=== PATIENT | male | born 1980 | race Two or more races ===

== ENCOUNTER 2020-08-07 07:36 | Outpatient (REF) | payer OTHER, SELFPAY ==
--- NOTE | ~2020-08-07 | XR_ITS ---
EXAMINATION: LEFT KNEE AND RIGHT FOOT X-RAYS CLINICAL INFORMATION: Pain COMPARISON: None TECHNIQUE: 3 views of the left knee and 3 views of the left foot FINDINGS: Left knee: Bone alignment is normal. No fracture or dislocation is seen. Joint spaces are normal. Soft tissues are normal. Right foot: Bone alignment is normal. No acute fracture or dislocation is seen. There is evidence of old trauma to the ankle with soft tissue ossifications inferior to the lateral malleolus. There is arthritis in the midfoot with joint space narrowing and osteophyte formation. There is a calcaneal spur at the Achilles tendon insertion. XR/XR foot RT 2V IMPRESSION: Left knee: Unremarkable exam Right foot: Evidence of old trauma to the lateral malleolus. Arthritis in the midfoot. Osteophyte at the Achilles tendon insertion to the patella.
--- NOTE | ~2020-08-07 | XR_ITS ---
EXAMINATION: LEFT KNEE AND RIGHT FOOT X-RAYS CLINICAL INFORMATION: Pain COMPARISON: None TECHNIQUE: 3 views of the left knee and 3 views of the left foot FINDINGS: Left knee: Bone alignment is normal. No fracture or dislocation is seen. Joint spaces are normal. Soft tissues are normal. Right foot: Bone alignment is normal. No acute fracture or dislocation is seen. There is evidence of old trauma to the ankle with soft tissue ossifications inferior to the lateral malleolus. There is arthritis in the midfoot with joint space narrowing and osteophyte formation. There is a calcaneal spur at the Achilles tendon insertion. XR/XR knee LT 3V IMPRESSION: Left knee: Unremarkable exam Right foot: Evidence of old trauma to the lateral malleolus. Arthritis in the midfoot. Osteophyte at the Achilles tendon insertion to the patella.
[2020-08-07 08:25] LABS: MANUAL DIFF FLAG NO
[2020-08-07 08:43] LABS: Basophils Percent Auto 0.4 % (0-2); Eosinophils Absolute Auto 0.2 X10*3/uL (0.0-0.4); Eosinophils Percent Auto 2.5 % (0-4); Hematocrit 47.1 % (42-52); Imm Gran Abs Auto 0.02 X10*3/uL (0.00-0.03); Imm Gran Pct Auto 0.2 % (0.0-0.4); Lymphocytes Absolute Auto 2.1 X10*3/uL (1.2-4.9); Lymphocytes Percent Auto 25.1 % (20-40); Mean Corpuscular HGB Conc 31.8 g/dl (31.0-36.0); Mean Platelet Volume 10.5 fL (9.4-12.4); Monocytes Absolute Auto 0.5 X10*3/uL (0.1-1.2); Monocytes Percent Auto 5.8 % (2-11); Neutrophils Absolute Auto 5.5 X10*3/uL (2.0-8.3); Platelet Count 303 X10*3/uL (160-400); Red Blood Count 5.35 X10*6/uL (4.60-5.80); Red Cell Distribution Width 13.4 % (11.0-16.0); White Blood Count 8.4 X10*3/uL (4.8-10.8)
[2020-08-07 09:05] LABS: Alanine Aminotransferase 26 U/L (0-40); Alkaline Phosphatase 74 U/L (39-117); Anion Gap 12 (12-20); Aspartate Amino Transferase 19 U/L (5-37); Bilirubin Total 0.4 mg/dL (0.0-1.0); Blood Urea Nitrogen 15 mg/dL (9-16); Calcium 9.3 mg/dL (8.4-10.2); Carbon Dioxide 30 mmol/L (22-29); Chloride 105 mmol/L (96-108); Cholesterol 181 mg/dL; Estimated Glomerular Filt Rate > 60; Glucose Fasting 85 mg/dL (60-99); HDL Cholesterol 60 mg/dL; LDL Cholesterol Calculated 113 mg/dl; Potassium 4.7 mmol/L (3.3-5.1); Sodium 142 mmol/L (135-145); Total Protein 6.9 g/dL (6.5-8.0); Triglycerides 41 mg/dL
[2020-08-07 09:29] LABS: Thyroid Stimulating Hormone 0.66 uIU/mL (0.32-4.0)
[2020-08-12 15:22] LABS: Vitamin D 25-OH, D2 <4 ng/mL; Vitamin D 25-OH, D3 30 ng/mL; Vitamin D 25-OH, Total 30 ng/mL (30-100)
== END 2020-08-07 07:37 | disposition home or self-care (01) ==
LOC: HO.LAB 07:36
PROVIDERS: PCP Internal Medicine; Visit Provider Internal Medicine
DX: M25.562 Pain in left knee (principal); M79.671 Pain in right foot; E55.9 Vitamin D deficiency, unspecified; E66.9 Obesity, unspecified; D64.9 Anemia, unspecified; E78.5 Hyperlipidemia, unspecified; I10 Essential (primary) hypertension
CPT/HCPCS: 36415; 73562; 73620; 80053; 80061; 82306; 84443; 85025

== ENCOUNTER 2020-08-11 16:54 | Emergency (ER) | payer OTHER, SELFPAY ==
[2020-08-11 17:09] VITALS: BP 212/105; PULSE 77; RESP 18; TEMP 36.8; O2SAT 96; BMI 55.9
--- NOTE | 2020-08-11 17:15 | ED.DENTAL ---
HPI - Dental/Oral General Chief complaint: Dental/Oral Stated complaint: Dental Pain Time Seen by Provider: 08/11/20 17:13 Source: patient Mode of arrival: ambulatory Limitations: no limitations History of Present Illness HPI Narrative: 39 y/o male with history of HTN, obesity, ANKUSH who presents to the ER with 3 days of lower dental pain. He has a history of cavities and a broken tooth in the area that has bothered him on/off for a long time. The last 3 days have been unbearable. He noticed some mild facial swelling today. He went to see his dentist today and they will not take him until August 18. He has been taking Tylenol with minimal relief. He came here for evaluation given his pain is so severe. He is able to eat and drink on the right side of his mouth. He is able to fully open and close his mouth but with some discomfort. MD Complaint: tooth pain Location: Tooth # (17 & 18) Onset (ago): day(s) (3) Duration: constant Severity: severe Severity scale (1-10): 10 Relieving factors: nothing Exacerbating factors: chewing Context: history of dental caries and poor dental care Associated symptoms: ear pain Treatment prior to arrival: none Related Data Home Medications Medication Instructions Recorded Confirmed amlodipine 10 mg tablet 10 mg PO DAILY 07/31/20 07/31/20 aspirin 81 mg tablet,delayed 81 mg PO DAILY 07/31/20 07/31/20 release chlorthalidone 25 mg tablet 25 mg PO DAILY 07/31/20 07/31/20 irbesartan 300 mg tablet 300 mg PO DAILY 07/31/20 07/31/20 Previous Rx's Medication Instructions Recorded clindamycin HCl 300 mg PO Q6H 7 Days #28 cap 08/11/20 hydrocodone-acetaminophen 1 tab PO Q4-6H PRN #7 tab 08/11/20 ibuprofen 800 mg PO Q8H PRN #20 tab 08/11/20 Allergies Allergy/AdvReac Type Severity Reaction Status Date / Time seafood Allergy Difficulty Verified 08/11/20 17:09 Breathing Review of Systems Review of Systems: Constitutional: No Fever, No Chills ENT/Mouth: No sore throat, No Rhinorrhea, No Swallowing Difficulty, +dental pain, +ear pain Eyes: No Eye Pain, No Swelling, No Redness Cardiovascular: No Chest Pain, No SOB Respiratory: No Cough, No Sputum, No Wheezing, No dyspnea Gastrointestinal: No Nausea, No Vomiting Skin: No Skin Lesions, No rash Neuro: No Weakness, No Numbness, No Dizziness, No Headache Heme/Lymph: No Lymphadenopathy REPLACED BY [facility] Past Medical History Attestation statement: The following information was validated with the patient. Medical History COVID-19 Essential hypertension Left knee pain Long-term use of aspirin therapy Obese ANKUSH (obstructive sleep apnea) Right foot pain Right knee pain Surgical History History of carpal tunnel surgery of right wrist Family History Family History Mother No problems noted. Father No problems noted. Social History Social History Housing: Apartment Alcohol intake: current Alcohol intake frequency: holidays/special occasions only Alcohol type: beer, wine and hard liquor Patient Tobacco Use Status: Current someday Tobacco user Tobacco use type: Cigarette Cigarettes Per Day: 2 e-Cigarette/Vaping Use: Never Used Second Hand Smoke Exposure: No Advance Directives: No Advance Directives Information Provided: No service: No Current occupational status: employed Current occupational exposures/hazards: No Physical Exam Vital Signs: Vital Signs: Last Vital Signs Temp 98.2 F 08/11/20 17:09 Pulse 77 08/11/20 17:09 Resp 18 08/11/20 17:09 BP 212/105 H 08/11/20 17:09 Pulse Ox 96 08/11/20 17:09 Body Mass Index 55.9 Const: General: cooperative, healthy appearing and comfortable HENMT: Head: Yes normal to inspection and Yes normocephalic Ears: hearing grossly normal bilaterally and TM's normal bilaterally General nose exam: Normal external nose present and Normal nares present Face and sinus: Yes edema (mild swelling of left lower mandible, no erythema) Mouth: Normal oral and palatal mucosa present, lip normal, tongue normal, Normal salivary glands and ducts present, oropharynx normal and moist mucous membranes Teeth and gingiva: abnormal tooth and associated gingiva lower left first molar tender, with associated gingival edema and enamel fractured, caries and gingiva abnormal edematous and tender Throat: Yes posterior oropharynx normal, Yes tonsils normal and Yes uvula midline Eyes: General: appearance normal, both eyes and all related structures Neck: Neck: Yes normal visual inspection and Yes no lymphadenopathy Chest: Chest palpation & inspection: normal inspection of the chest Resp: Effort & Inspection: normal respiratory effort and able to speak in complete sentences Cardio: Rate: regular rate Rhythm: regular rhythm Course Course Course Narrative: 39 y/o male presenting with severe left lower dental pain x3 days. No palpable abscess on examination. Poor dentition with cracked teeht in left lower jaw with gingival swelling and tenderness. Noted to be very hypertensive on arrival 212/105, HR 77. He reports compliance with his PO antihypertensive medications today. He reports being stressed, anxious and in signficant pain. He denies chest pain, headache, vision changes. Will treat with pain control and repeat BP. Will start PO antibiotics for tooth infection. Will need BP to improve prior to discharge. Reevaluation(s) Reevaluation #1: Repeat BP 172/95. Stable for discharge home with PO abx and pain control. Discharge Plan Discharge Clinical Impression: Toothache Patient Disposition: Home, Self-Care Instructions: Toothache (ED) Additional Instructions: Take the antibiotic as prescribed. Take the ibuprofen every 8 hours, take with food. Take the hydrocodone every 4-6 hours as needed for severe pain. Ice your face as needed for pain and swelling. Avoid very hot and very cold foods. Follow up with your Dentist August 18 as scheduled. If you develop worsening pain, swelling or any other concerning symptoms come back to the ER for further evaluation. [place] el antibi?martin seg?n lo prescrito. [place] el ibuprofeno cada 8 horas, t?pappas con las comidas. [place] la hidrocodona cada 4 a 6 horas seg?n sea necesario para el dolor intenso. Aplique hielo en la sanchez seg?n sea necesario para aliviar el dolor y la hinchaz?n. Evite los alimentos muy calientes y muy fr?os. Vikram un seguimiento con staley dentista el seg?n lo programado. Si presenta un empeoramiento del dolor, hinchaz?n o cualquier otro s?ntoma preocupante, regrese a la gerardo de emergencias para tamera evaluaci?n adicional. Prescriptions: New clindamycin HCl 300 mg capsule 300 mg PO Q6H 7 Days Qty: 28 RF: 0 ibuprofen 800 mg tablet 800 mg PO Q8H PRN (Reason: pain) Qty: 20 RF: 0 hydrocodone-acetaminophen 5-325 mg tablet 1 tab PO Q4-6H PRN (Reason: pain) Qty: 7 RF: 0 No Action irbesartan 300 mg tablet 300 mg PO DAILY RF: 0 amlodipine 10 mg tablet 10 mg PO DAILY RF: 0 chlorthalidone 25 mg tablet 25 mg PO DAILY RF: 0 aspirin [Adult Low Dose Aspirin] 81 mg tablet,delayed release (DR/EC) 81 mg PO DAILY RF: 0
[2020-08-11 17:43] VITALS: BP 172/95; PULSE 78; RESP 16; O2SAT 97
[2020-08-11] MEDS: HYDROcodone Bit/Acetam 5/325 TABLET 1 TAB PO (17:50)
[2020-08-11] MEDS: Ibuprofen 800 MG TABLET PO (17:51)
[2020-08-11] MEDS: Clindamycin HCL 300 MG CAPSULE 600 MG PO (17:51)
== END 2020-08-11 18:16 | disposition home or self-care (01) ==
PROVIDERS: Emergency Provider Internal Medicine; PCP Internal Medicine
DX: K08.89 Other specified disorders of teeth and supporting structures (principal); K03.81 Cracked tooth; I10 Essential (primary) hypertension; Z79.82 Long term (current) use of aspirin; Z79.899 Other long term (current) drug therapy
CPT/HCPCS: 99283; 99284

== ENCOUNTER 2020-08-29 16:36 | Emergency (ER) | payer OTHER, SELFPAY ==
--- NOTE | ~2020-08-29 | CT_ITS ---
EXAMINATION: CT ANGIOGRAM RIGHT LOWER EXTREMITY CLINICAL INFORMATION: 39-year-old male with right knee puncture wound. COMPARISON: Right knee radiographs earlier this evening. TECHNIQUE: Axial imaging was performed through the right lower extremity following the administration of 80 mL of Omnipaque 350 IV contrast. Reformatted coronal and sagittal images were provided for interpretation in addition to MIP reformatted images. This CT examination was performed using dose optimization techniques as appropriate, variously including the following: *Automated exposure control *Adjustment of mA and/or kV according to patient size (this includes techniques or standardized protocols for targeted exams where dose is matched to indication/reason for exam; i.e. extremities or head) *Use of iterative reconstruction technique DLP: 611 mGy-cm FINDINGS: Vascular: The right common, internal and external iliac arteries are widely patent. Right common femoral artery and profundus femoris artery are widely patent. The right superficial femoral artery and right popliteal artery are widely patent. Normal three-vessel runoff of the right calf. Nonvascular: 16 and soft tissue irregularity along the medial aspect of the patella is consistent with reported history of laceration. There is a punctate focus of air identified in this region. There is a small associated soft tissue hematoma which measures approximately 3.5 x 2.0 x 2.0 cm. Within the anterior aspect of the vastus medialis muscle there is a punctate hyperdensity which measures approximately 7 x 4 mm (image [id number], series 7). Visualized loops of small and large bowel are normal in caliber. The bladder is relatively decompressed but grossly unremarkable. No acute osseous abnormality. CT/CT angio LE RT IMPRESSION: Laceration with small soft tissue hematoma is noted along the medial aspect of the knee. Subcentimeter hypodense focus within the anterior aspect of the vastus medialis muscle is nonspecific but may represent a tiny pseudoaneurysm or possibly a foreign body. Clinical correlation is recommended.
--- NOTE | ~2020-08-29 | XR_ITS ---
EXAMINATION: XR KNEE, RIGHT CLINICAL INFORMATION: Puncture wound around the right the COMPARISON: None TECHNIQUE: Four views of the right knee. FINDINGS: Bones and soft tissues are normal aside from some free patellar soft tissue swelling. No fracture or joint effusion. Alignment is anatomic. Joint spaces are well maintained. No abnormal soft tissue calcification. XR/XR knee RT 3V IMPRESSION: No significant bone or joint abnormality seen
[2020-08-29 16:45] VITALS: BP 140/86; PULSE 76; RESP 16; TEMP 36.9; O2SAT 98; BMI 68.3
--- NOTE | 2020-08-29 17:06 | ED_ITS ---
HPI - Wound/Laceration General Chief Complaint: Wound/Laceration Stated Complaint: puncture wound Time Seen by Provider: 08/29/20 16:50 Source: patient Mode of arrival: EMS Limitations: language barrier History of Present Illness HPI narrative: 39-year-old male with history of hypertension who presents to the ED with puncture wound to right knee. 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 Immediately felt discomfort. EMS states the blood line on the pocket knife was approximately 1 in. Patient has been unable to ambulate since. Denies any other areas of injury or trauma. Is not up-to-date on his tetanus. Denies numbness or tingling in the leg. States the bleeding stopped fairly quickly with pressure. Related Data Home Medications Medication Instructions Recorded Confirmed amlodipine 10 mg tablet 10 mg PO DAILY 07/31/20 07/31/20 aspirin 81 mg tablet,delayed 81 mg PO DAILY 07/31/20 07/31/20 release chlorthalidone 25 mg tablet 25 mg PO DAILY 07/31/20 07/31/20 irbesartan 300 mg tablet 300 mg PO DAILY 07/31/20 07/31/20 Previous Rx's Medication Instructions Recorded clindamycin HCl 300 mg PO Q6H 7 Days #28 cap 08/11/20 hydrocodone-acetaminophen 1 tab PO Q4-6H PRN #7 tab 08/11/20 hydrocodone-acetaminophen 1 tab PO Q4-6H PRN #7 tab 08/11/20 ibuprofen 800 mg PO Q8H PRN #20 tab 08/11/20 acetaminophen [Tylenol] 650 mg PO Q6H PRN #30 tab 08/29/20 cephalexin 500 mg PO QID #40 cap 08/29/20 ibuprofen 600 mg PO Q6H PRN #30 tab 08/29/20 Allergies Allergy/AdvReac Type Severity Reaction Status Date / Time seafood Allergy Difficulty Verified 08/11/20 17:09 Breathing Review of Systems Review of Systems: Constitutional : No Weight loss, No Fever, No Chills, No Night Sweats, No Fatigue, No Malaise ENT/Mouth : No Hearing loss, No Ear Pain, No Nasal Congestion, No Sinus Pain, No Hoarseness, No sore throat, No Rhinorrhea, No Swallowing Difficulty Eyes: No Eye Pain, No Swelling, No Redness, No Foreign Body, No Discharge, No Vision Changes Cardiovascular : No Chest Pain, No SOB, No Dyspnea on Exertion, No Orthopnea, No Edema, No Palpitations Respiratory : No Cough, No Sputum, No Wheezing, No Smoke Exposure, No Dyspnea Gastrointestinal : No Nausea, No Vomiting, No Diarrhea, No Constipation, No abdominal Pain, No Hematochezia, No Melena Genitourinary : no irregular bleeding, No Dysuria, No Urinary Frequency, No Hematuria, No Urinary Incontinence, No Urgency, No Flank Pain, No Urinary Flow Changes, No Hesitancy Musculoskeletal : + joint pain, No Myalgias Skin : No Skin Lesions, No rash, + right knee wound Neuro : No Weakness, No Numbness, No Paresthesias, No Loss of Consciousness, No Dizziness, No Headache Psych : No Anxiety/Panic, No Depression, No SI/HI/AH/VH, No Social Issues, Heme/Lymph: No Bruising, No Bleeding,No Lymphadenopathy Endocrine : No Polyuria, No Polydipsia, No Temperature Intolerance PMFSH Past Medical History Attestation statement: The following information was validated with the patient. Source: old records reviewed and obtained from family Medical History COVID-19 Essential hypertension Left knee pain Long-term use of aspirin therapy Obese ANKUSH (obstructive sleep apnea) Right foot pain Right knee pain Surgical History History of carpal tunnel surgery of right wrist Family History Family History Mother No problems noted. Father No problems noted. Social History Social History Housing: Apartment Alcohol intake: current Alcohol intake frequency: holidays/special occasions only Alcohol type: beer, wine and hard liquor Patient Tobacco Use Status: Current someday Tobacco user Tobacco use type: Cigarette Cigarettes Per Day: 2 e-Cigarette/Vaping Use: Never Used Second Hand Smoke Exposure: No Advance Directives: No Advance Directives Information Provided: No service: No Current occupational status: employed Current occupational exposures/hazards: No Physical Exam Vital Signs: Vital Signs: Last Vital Signs Temp 98.5 F 08/29/20 16:45 Pulse 76 08/29/20 16:45 Resp 16 08/29/20 16:45 BP 140/86 H 08/29/20 16:45 Pulse Ox 98 08/29/20 16:45 Body Mass Index 68.3 vital signs have been reviewed as normal and appeared to be correct. Blood pressure normal. Heart rate normal. Respiration rate normal. Temperature normal. Oxygen saturation normal. Appearance: Alert. Oriented X3. Mild acute distress. Head: Normal external exam. Normocephalic. Atraumatic. No Mcneal signs noted. No raccoon eyes noted Eyes: Conjunctiva and sclera normal. ENT: EAC normal. Moist mucous membranes. No drooling noted. No muffled voice noted. Neck: Normal inspection. Neck supple. FROM. No meningeal signs. CVS: Pulses normal throughout. Respiratory: No respiratory distress. Painless inspiration. No accessory muscle usage noted Abdomen: No visible injury noted. Back: Full range of motion noted. Skin: Skin warm and dry. Normal skin color. Normal skin turgor. Extremities: Limited range of motion of right knee secondary to pain. Patient with linear puncture wound to right anterior knee no active bleeding pain over wound noted. No gross edema although exam is limited due to obesity. Good distal pulses good capillary refill. extremity otherwise neurovascularly in tact. Neuro: Oriented X 3. No motor deficit. No sensory deficit. Procedures Laceration Laceration 1: Site: lower extremity Side (If applicable): right Size (cm): 3 Description: linear Depth: involves muscle layer Local Anesthetic: lidocaine 2% and with epi Amount of anesthesia used (mL): 5 Pre-repair: wound explored and irrigated extensively Skin layer closed with: nylon Size (cm): 4-0 Number of sutures: 4 Technique: simple, interrupted MDM - Wound/Laceration MDM Narrative Medical decision making narrative: Patient's vital signs are stable and he is afebrile. Patient presenting to the ED with accidental puncture wound to the right knee. Concern for osseous injury versus vascular injury does exist. Patient has good distal pulses good capillary refill returns reassuring however will obtain a CTA to formally assess vasculature. Will also obtain x-ray looking for evidence of bony injury. Will check basic blood work due to the need of IV contrast medicate with ibuprofen patient does not want anything stronger. Will also hang a 1.5g of Ancef and give updated tetanus vaccine. Lab Data Result diagrams: 08/29/20 17:25 08/29/20 17:25 Labs: Lab Results 08/29/20 08/29/20 Range/Units 17:25 17:25 WBC 12.3 H (4.8-10.8) X10*3/uL RBC 4.96 (4.60-5.80) X10*6/uL Hgb 14.0 (14.0-18.0) g/dl Hct 43.4 (42-52) % MCV 87.5 (80-98) fL MCH 28.2 (27.0-33.0) pg MCHC 32.3 (31.0-36.0) g/dl RDW 13.7 (11.0-16.0) % Plt Count 281 (160-400) X10*3/uL MPV 10.5 (9.4-12.4) fL Immature Gran % (Auto) 0.3 (0.0-0.4) % Neut % (Auto) 72.4 (45-73) % Lymph % (Auto) 19.3 L (20-40) % Hughes % (Auto) 5.8 (2-11) % Eos % (Auto) 1.9 (0-4) % Baso % (Auto) 0.3 (0-2) % Lymph # (Auto) 2.4 (1.2-4.9) X10*3/uL Hughes # (Auto) 0.7 (0.1-1.2) X10*3/uL Eos # (Auto) 0.2 (0.0-0.4) X10*3/uL Baso # (Auto) 0.0 (0.0-0.2) X10*3/uL Abs Immat Gran (auto) 0.04 H (0.00-0.03) X10*3/uL Absolute Neuts (auto) 8.9 H (2.0-8.3) X10*3/uL Absolute Nucleated RBC 0.000 (0.0-0.012) X10*3/uL Nucleated RBC % (auto) 0.0 (0.0-0.2) /100WBC Sodium 142 (135-145) mmol/L Potassium 4.4 (3.3-5.1) mmol/L Chloride 107 (96-108) mmol/L Carbon Dioxide 26 (22-29) mmol/L Anion Gap 13 (12-20) BUN 15 (9-16) mg/dL Creatinine 0.76 (0.5-1.4) mg/dL Estim Creat Clear Calc 194.9 Estimated GFR > 60 Random Glucose 92 (60-115) mg/dL Calcium 9.1 (8.4-10.2) mg/dL Total Bilirubin 0.2 (0.0-1.0) mg/dL AST 24 (5-37) U/L ALT 26 (0-40) U/L Alkaline Phosphatase 72 (39-117) U/L Total Protein 6.9 (6.5-8.0) g/dL Albumin 3.8 (3.5-5.0) g/dL Discharge Plan Discharge Clinical Impression: Puncture wound Injury of knee Qualifiers: Encounter type: initial encounter Laterality: right Qualified Code(s): S89.91XA - Unspecified injury of right lower leg, initial encounter Patient Disposition: Home, Self-Care Instructions: Puncture Wound (ED) Additional Instructions: Your seen in the emergency department today due to an accidental stab wound in the right knee. An x-ray was performed without bony injury. A CT scan was performed without vascular injury. Thankfully there was only soft tissue in jury. Your laceration was repaired with 4 nonabsorbable sutures and will need to be removed in 10-14 days. This can be done by orthopedics or return to the emergency room. You need to follow-up with the product marketing specialist in the next 2-3 days. Call tomorrow to make that appointment the information has been attached. You need to continue to take antibiotics at home for the next 10 days these were sent to your pharmacy can pick them up tomorrow. Use Motrin and Tylenol for pain control use crutches to help with pain and ambulation return to the ED if you notice increased pain, increased swelling, bleeding from the wound or fever. Prescriptions: New cephalexin 500 mg capsule 500 mg PO QID Qty: 40 RF: 0 ibuprofen 600 mg tablet 600 mg PO Q6H PRN (Reason: pain) Qty: 30 RF: 0 acetaminophen [Tylenol] 325 mg tablet 650 mg PO Q6H PRN (Reason: pain) Qty: 30 RF: 0 No Action clindamycin HCl 300 mg capsule 300 mg PO Q6H 7 Days Qty: 28 RF: 0 ibuprofen 800 mg tablet 800 mg PO Q8H PRN (Reason: pain) Qty: 20 RF: 0 hydrocodone-acetaminophen 5-325 mg tablet 1 tab PO Q4-6H PRN (Reason: pain) Qty: 7 RF: 0 hydrocodone-acetaminophen 5-325 mg tablet 1 tab PO Q4-6H PRN (Reason: pain) Qty: 7 RF: 0 irbesartan 300 mg tablet 300 mg PO DAILY RF: 0 amlodipine 10 mg tablet 10 mg PO DAILY RF: 0 chlorthalidone 25 mg tablet 25 mg PO DAILY RF: 0 aspirin [Adult Low Dose Aspirin] 81 mg tablet,delayed release (DR/EC) 81 mg PO DAILY RF: 0 Referrals: Flavia Bustamante MD [Physician] - 2 days Stand Alone Forms: Work/School Release Print Language: Serbian
[2020-08-29 17:41] LABS: MANUAL DIFF FLAG NO
[2020-08-29 17:45] LABS: Basophils Percent Auto 0.3 % (0-2); Eosinophils Absolute Auto 0.2 X10*3/uL (0.0-0.4); Eosinophils Percent Auto 1.9 % (0-4); Hematocrit 43.4 % (42-52); Imm Gran Abs Auto 0.04 X10*3/uL (0.00-0.03); Imm Gran Pct Auto 0.3 % (0.0-0.4); Lymphocytes Absolute Auto 2.4 X10*3/uL (1.2-4.9); Lymphocytes Percent Auto 19.3 % (20-40); Mean Corpuscular HGB Conc 32.3 g/dl (31.0-36.0); Mean Corpuscular Hemoglobin 28.2 pg (27.0-33.0); Mean Corpuscular Volume 87.5 fL (80-98); Mean Platelet Volume 10.5 fL (9.4-12.4); Monocytes Absolute Auto 0.7 X10*3/uL (0.1-1.2); Monocytes Percent Auto 5.8 % (2-11); Neutrophils Absolute Auto 8.9 X10*3/uL (2.0-8.3); Neutrophils Percent Auto 72.4 % (45-73); Platelet Count 281 X10*3/uL (160-400); Red Blood Count 4.96 X10*6/uL (4.60-5.80); Red Cell Distribution Width 13.7 % (11.0-16.0); White Blood Count 12.3 X10*3/uL (4.8-10.8)
[2020-08-29] MEDS: Diphth,Pertus(ACell),Tet Adult 0.5 ML SYRINGE IM (17:54)
[2020-08-29] MEDS: Ibuprofen 800 MG TABLET PO (17:56)
[2020-08-29 18:18] LABS: Alanine Aminotransferase 26 U/L (0-40); Albumin Level 3.8 g/dL (3.5-5.0); Alkaline Phosphatase 72 U/L (39-117); Anion Gap 13 (12-20); Aspartate Amino Transferase 24 U/L (5-37); Bilirubin Total 0.2 mg/dL (0.0-1.0); Blood Urea Nitrogen 15 mg/dL (9-16); Calcium 9.1 mg/dL (8.4-10.2); Carbon Dioxide 26 mmol/L (22-29); Chloride 107 mmol/L (96-108); Creatinine Clr Calc Pharmacy 194.9; Estimated Glomerular Filt Rate > 60; Glucose Random 92 mg/dL (60-115); Potassium 4.4 mmol/L (3.3-5.1); Sodium 142 mmol/L (135-145); Total Protein 6.9 g/dL (6.5-8.0)
[2020-08-29] MEDS: iohexoL 350 MG/ML 100 ML INFUS..BTL IV (18:55)
[2020-08-29] MEDS: Lidocaine HCl 2 % MPF 5 ML VIAL SUBCUT (19:36)
--- NOTE | 2020-08-29 19:42 | PC.NURSE ---
PT TAKEN TO CT SCAN AFTER LABS RETURNED. LORNA TAYLOR ON TIGER TEXT WITH ORTHO FOR A F/U FOR PT. PT LAC TO RIGHT KNEE CLEANED AND SUTURES APPLIED BY LORNA TAYLOR.
== END 2020-08-29 20:36 | disposition home or self-care (01) ==
PROVIDERS: Physician Assistant; Emergency Provider Emergency Medicine; PCP Internal Medicine
DX: S81.031A Puncture wound without foreign body, right knee, initial encounter (principal); I10 Essential (primary) hypertension; Z79.82 Long term (current) use of aspirin; Z79.899 Other long term (current) drug therapy; W45.8XXA Other foreign body or object entering through skin, initial encounter; Y93.9 Activity, unspecified; Y92.9 Unspecified place or not applicable; Y99.9 Unspecified external cause status
CPT/HCPCS: 12002; 36415; 73562; 73706; 80053; 85025; 90471; 90715; 96365; 99284; J0690; Q9967

== ENCOUNTER → 2020-09-01 07:21 | Outpatient (BNVA) | payer OTHER, SELFPAY | PROVIDERS: PCP Internal Medicine; Visit Provider Surgery ==

== ENCOUNTER 2020-09-04 07:32 | Outpatient (REF) | payer OTHER, SELFPAY ==
--- NOTE | ~2020-09-04 | XR_ITS ---
EXAMINATION: BILATERAL KNEE X-RAY CLINICAL INFORMATION: Bilateral knee pain COMPARISON: Previous x-ray July and August 2020 TECHNIQUE: 4 views of each knee FINDINGS: Left: Bone alignment is normal. No fracture or dislocation is seen. Joint spaces are normal. There is no joint effusion. Right: Bone alignment is normal. No fracture or dislocation is seen. Joint spaces are normal. There is no joint effusion. XR/XR knee RT 4V IMPRESSION: Unremarkable exam.
--- NOTE | ~2020-09-04 | XR_ITS ---
EXAMINATION: XR CHEST CLINICAL INFORMATION: Essential primary hypertension COMPARISON: None TECHNIQUE: 2 views of the chest were obtained. FINDINGS: No significant abnormality is noted involving the heart, lungs, mediastinum, bony thorax or soft tissues. XR/XR chest 2V IMPRESSION: Unremarkable examination.
--- NOTE | ~2020-09-04 | XR_ITS ---
EXAMINATION: BILATERAL KNEE X-RAY CLINICAL INFORMATION: Bilateral knee pain COMPARISON: Previous x-ray July and August 2020 TECHNIQUE: 4 views of each knee FINDINGS: Left: Bone alignment is normal. No fracture or dislocation is seen. Joint spaces are normal. There is no joint effusion. Right: Bone alignment is normal. No fracture or dislocation is seen. Joint spaces are normal. There is no joint effusion. XR/XR knee LT 4V IMPRESSION: Unremarkable exam.
--- NOTE | 2020-09-04 07:41 | ECG_ITS ---
Test Reason : HTN Blood Pressure : / mmHG Vent. Rate : 059 BPM Atrial Rate : 059 BPM P-R Int : 180 ms QRS Dur : 094 ms QT Int : 390 ms P-R-T Axes : -28 001 019 degrees QTc Int : 386 ms Sinus bradycardia Otherwise normal ECG No previous ECGs available Referred By: Ashish Keyes Electronically Signed By:MANUEL SEVERINO MD
[2020-09-04 08:28] LABS: MANUAL DIFF FLAG NO
[2020-09-04 08:34] LABS: Basophils Percent Auto 0.4 % (0-2); Eosinophils Absolute Auto 0.3 X10*3/uL (0.0-0.4); Eosinophils Percent Auto 3.2 % (0-4); Hematocrit 44.9 % (42-52); Hemoglobin 14.2 g/dl (14.0-18.0); Imm Gran Abs Auto 0.04 X10*3/uL (0.00-0.03); Imm Gran Pct Auto 0.5 % (0.0-0.4); Lymphocytes Absolute Auto 1.8 X10*3/uL (1.2-4.9); Lymphocytes Percent Auto 21.8 % (20-40); Mean Corpuscular HGB Conc 31.6 g/dl (31.0-36.0); Mean Corpuscular Hemoglobin 28.1 pg (27.0-33.0); Mean Corpuscular Volume 88.9 fL (80-98); Mean Platelet Volume 10.4 fL (9.4-12.4); Monocytes Absolute Auto 0.5 X10*3/uL (0.1-1.2); Monocytes Percent Auto 5.9 % (2-11); Neutrophils Absolute Auto 5.7 X10*3/uL (2.0-8.3); Neutrophils Percent Auto 68.2 % (45-73); Platelet Count 293 X10*3/uL (160-400); Red Blood Count 5.05 X10*6/uL (4.60-5.80); White Blood Count 8.3 X10*3/uL (4.8-10.8)
[2020-09-04 08:44] LABS: Estimated Average Glucose 111 mg/dL; Hemoglobin A1c % 5.5 %
[2020-09-04 09:19] LABS: Alanine Aminotransferase 25 U/L (0-40); Albumin Level 3.9 g/dL (3.5-5.0); Alkaline Phosphatase 71 U/L (39-117); Anion Gap 11 (12-20); Aspartate Amino Transferase 19 U/L (5-37); Bilirubin Total 0.3 mg/dL (0.0-1.0); Blood Urea Nitrogen 13 mg/dL (9-16); C Reactive Protein 1.61 mg/dL (< or = 0.50); Calcium 9.2 mg/dL (8.4-10.2); Carbon Dioxide 29 mmol/L (22-29); Chloride 107 mmol/L (96-108); Cholesterol 168 mg/dL; Estimated Glomerular Filt Rate > 60; Glucose Random 87 mg/dL (60-115); HDL Cholesterol 59 mg/dL; Iron 64 mcg/dL (45-160); LDL Cholesterol Calculated 101 mg/dl; Percent Iron Saturation 23 % (15-50); Potassium 4.5 mmol/L (3.3-5.1); Sodium 142 mmol/L (135-145); Total Iron Binding Capacity 282 mcg/dL (228-428); Total Protein 6.8 g/dL (6.5-8.0); Triglycerides 41 mg/dL; Unsaturated Iron Binding 218 ug/dL
[2020-09-04 09:25] LABS: Ferritin 200 ng/mL (20-250); TSH reflex Free T4 1.22 uIU/mL (0.32-4.0); Vitamin D 25-OH Total 28.5 ng/mL (>30)
[2020-09-04 11:07] LABS: Folate 13.8 ng/mL (> or = 4.0); Vitamin B12 528 pg/mL (200-900)
[2020-09-05 18:45] LABS: Insulin Level Total 18.5 uIU/mL
[2020-09-06 18:57] LABS: Calcium (PTHI) 8.9 mg/dL (8.6-10.3); PTHI 48 pg/mL (14-64)
[2020-09-07 07:10] LABS: Zinc 81 mcg/dL (60-130)
[2020-09-08 02:26] LABS: Vitamin A 36 mcg/dL (38-98)
[2020-09-08 13:06] LABS: Vitamin B1 13 nmol/L (8-30)
== END 2020-09-04 07:33 | disposition home or self-care (01) ==
LOC: HO.LAB 07:32
PROVIDERS: PCP Internal Medicine; Visit Provider Surgery
DX: M25.561 Pain in right knee (principal); M25.562 Pain in left knee; E66.01 Morbid (severe) obesity due to excess calories; G47.33 Obstructive sleep apnea (adult) (pediatric); I10 Essential (primary) hypertension; F17.210 Nicotine dependence, cigarettes, uncomplicated
CPT/HCPCS: 36415; 71046; 73564; 80053; 80061; 82306; 82607; 82728; 82746; 83036; 83525; 83540; 83970; 84425; 84443; 84590; 84630; 85025; 86140; 93005; 99202

== ENCOUNTER → 2020-09-11 08:42 | Outpatient (BNVA) | payer OTHER, SELFPAY | PROVIDERS: Visit Provider Physician Assistant | DX: S81.011D Laceration without foreign body, right knee, subsequent encounter (principal) | CPT/HCPCS: 99212 ==

== ENCOUNTER → 2020-10-05 08:12 | Outpatient (BNVA) | payer OTHER, SELFPAY | PROVIDERS: Visit Provider Dietitian, Registered ==

== ENCOUNTER 2020-10-05 11:48 | Emergency (ER) | payer OTHER, SELFPAY ==
--- NOTE | ~2020-10-05 | XR_ITS ---
EXAMINATION: XR FOOT, LEFT CLINICAL INFORMATION: Pain. COMPARISON: None TECHNIQUE: AP, lateral, and oblique views of the left foot. FINDINGS: No acute fracture or dislocation. Mild 1st metatarsophalangeal hallux varus angulation with lateral subluxation of the hallux sesamoids and mild degenerative arthritis. Bipartite tibial hallux sesamoid. Possible corticated loose body measuring 0.4 cm along the medial joint margin. Bony deformity at the 1st tarsometatarsal joint, which could represent remote trauma. Degenerative spurring at the dorsal midfoot. Dorsal calcaneal enthesophyte. XR/XR foot LT min 3V IMPRESSION: 1. First metatarsophalangeal hallux valgus angulation with lateral subluxation of the hallux sesamoids and mild degenerative arthritis. Probable small calcified loose body along the medial joint line measuring 0.4 cm. 2. Chronic-appearing deformity at the 1st tarsometatarsal joint, which could represent sequela of remote trauma. Degenerative spurring along the dorsal midfoot.
--- NOTE | 2020-10-05 12:43 | ED.GENADULT ---
HPI - General Adult General Chief complaint: Extremity Injury, Lower Stated complaint: Foot pain Time Seen by Provider: 10/05/20 12:43 Source: patient Limitations: no limitations History of Present Illness HPI narrative: Patient presents to the ER complaining of 10 10 left foot pain great toe mostly. No recent trauma. Pain increases with touching or ambulation. At rest pain decreases. Symptoms moderate. No prior history of gouty arthritis. Patient has a history of hypertension denies history of diabetes. No other complaints this time. Related Data Home Medications Medication Instructions Recorded Confirmed amlodipine 10 mg tablet 10 mg PO DAILY 07/31/20 09/01/20 aspirin 81 mg tablet,delayed 81 mg PO DAILY 07/31/20 09/01/20 release (Adult Low Dose Aspirin) chlorthalidone 25 mg tablet 25 mg PO DAILY 07/31/20 09/01/20 irbesartan 300 mg tablet 300 mg PO DAILY 07/31/20 09/01/20 ibuprofen 800 mg tablet 800 mg PO Q8H 09/04/20 Previous Rx's Medication Instructions Recorded clindamycin HCl 300 mg capsule 300 mg PO Q6H 7 Days #28 cap 08/11/20 hydrocodone 5 mg-acetaminophen 325 1 tab PO Q4-6H PRN #7 tab 08/11/20 mg tablet hydrocodone 5 mg-acetaminophen 325 1 tab PO Q4-6H PRN #7 tab 08/11/20 mg tablet acetaminophen 325 mg tablet 650 mg PO Q6H PRN #30 tab 08/29/20 (Tylenol) cephalexin 500 mg capsule 500 mg PO QID #40 cap 08/29/20 ibuprofen 600 mg tablet 600 mg PO Q6H PRN #30 tab 08/29/20 ibuprofen 800 mg tablet 800 mg PO Q8H PRN #20 tab 08/30/20 naproxen 500 mg tablet,delayed 500 mg PO BID PRN #20 tab 10/05/20 release (EC-Naproxen) prednisone 20 mg tablet 40 mg PO DAILY #10 tab 10/05/20 tramadol 50 mg tablet 50 mg PO BID PRN #10 tab 10/05/20 Allergies Allergy/AdvReac Type Severity Reaction Status Date / Time oxycodone Allergy rash Verified 09/11/20 08:48 seafood Allergy Difficulty Verified 09/11/20 08:48 Breathing Review of Systems Review of Systems: Constitutional : No Weight loss, No Fever, No Chills Cardiovascular : No Chest Pain, No SOB, No Dyspnea on Exertion Respiratory : No Cough, No Sputum, No Wheezing, No Smoke Exposure, No Dyspnea Gastrointestinal : No Nausea, No Vomiting, No Diarrhea Musculoskeletal : Left foot pain left great toe pain Neuro : No Weakness, No Numbness, No Paresthesias, No Loss of Consciousness, No Dizziness, No Headache Heme/Lymph: No Bruising, No Bleedin Endocrine : No Polyuria, No Polydipsia, No Temperature Intolerance PMFSH Past Medical History Attestation statement: The following information was validated with the patient. Medical History Anxiety COVID-19 Depression Essential hypertension Left knee pain Long-term use of aspirin therapy Morbid obesity Obese ANKUSH (obstructive sleep apnea) Right foot pain Right knee pain Surgical History History of carpal tunnel surgery of right wrist Family History Family History Mother No problems noted. Father No problems noted. Sister No problems noted. Sister No problems noted. Sister Diabetes Hypertension Social History Social History Housing: Apartment Alcohol intake: current Alcohol intake frequency: holidays/special occasions only Alcohol type: beer, wine and hard liquor Patient Tobacco Use Status: Current someday Tobacco user Tobacco use type: Cigarette Cigarettes Per Day: 2 e-Cigarette/Vaping Use: Never Used Second Hand Smoke Exposure: No Advance Directives: Yes Advance Directives Information Provided: Yes Advance Directives on File: No service: No Current occupational status: employed Current occupation: [email or web address] Current occupational exposures/hazards: No Physical Exam Vital Signs: Vital Signs: Last Vital Signs Temp 97.9 F 10/05/20 12:45 Pulse 70 10/05/20 12:45 Resp 16 10/05/20 12:45 BP 122/56 L 10/05/20 12:45 Pulse Ox 96 10/05/20 12:45 Body Mass Index 56.8 vital signs have been reviewed as normal and appeared to be correct. Blood pressure normal. Heart rate normal. Respiration rate normal. Temperature normal. Oxygen saturation normal. Appearance: Alert. Oriented X3. No acute distress. Head: Normal external exam. Normocephalic. Atraumatic. Eyes: PERRLA. EOMI. ENT: Pharynx normal. Uvula midline. Moist mucous membranes. CVS: Heart regular rate and rhythm no murmurs and rubs Respiratory: Breath sounds are clear to auscultation bilaterally. No accessory muscle use noted. Back: Full range of motion noted. Skin: Skin warm and dry. Normal skin color. Normal skin turgor. No rashes/lesions/lacerations noted. Extremities: Left foot positive tenderness great toe slight erythema noted hypersensitive to touch pain increases with range of motion Neuro: Oriented X 3. No motor deficit. No sensory deficit. Reflexes normal. Course Course Course Narrative: Left foot pain Gouty arthritis Arthritis Symptoms are consistent with gouty arthritis of the left foot x-rays pending Medical Decision Making Imaging Data foot: Radiologist's impression: [address] [address] XRay Report Signed Patient: Tavares Real MR#: [id number] : 1980 Acct:[id number] Age/Sex: 39 / M ADM Date: 10/05/20 Loc: HO.ED Attending Dr: Ordering Physician: Marlon Ordaz Date of Service: 10/05/20 Procedure(s): XR foot LT min 3V Accession Number(s): [id number] cc: Marlon Ordaz ~ EXAMINATION: XR FOOT, LEFT CLINICAL INFORMATION: Pain.? COMPARISON: None? TECHNIQUE: AP, lateral, and oblique views of the left foot. FINDINGS: No acute fracture or dislocation. Mild 1st metatarsophalangeal hallux varus angulation with lateral subluxation of the hallux sesamoids and mild degenerative arthritis. Bipartite tibial hallux sesamoid. Possible corticated loose body measuring 0.4 cm along the medial joint margin. Bony deformity at the 1st tarsometatarsal joint, which could represent remote trauma. Degenerative spurring at the dorsal midfoot. Dorsal calcaneal enthesophyte.? XR/XR foot LT min 3V IMPRESSION: 1. First metatarsophalangeal hallux valgus angulation with lateral subluxation of the hallux sesamoids and mild degenerative arthritis. Probable small calcified loose body along the medial joint line measuring 0.4 cm. ? 2. Chronic-appearing deformity at the 1st tarsometatarsal joint, which could represent sequela of remote trauma. Degenerative spurring along the dorsal midfoot. Dictated By: PRISCILLA LEBLANC MD Signed By: <Electronically signed by PRISCILLA LEBLANC MD in OV> 10/05/20 1347 DD/ 1243 TD/TT:? Supply Chain Technician: Discharge Plan Discharge Clinical Impression: Gout attack Patient Disposition: Home, Self-Care Instructions: Low Purine Diet (ED), Gout (ED) Additional Instructions: Your symptoms appear to be consistent with acute gouty arthritis X-ray shows degenerative arthritis of the foot follow-up with Podiatry as recommended Prescriptions: New prednisone 20 mg tablet 40 mg PO DAILY Qty: 10 RF: 0 naproxen [EC-Naproxen] 500 mg tablet,delayed release (DR/EC) 500 mg PO BID PRN (Reason: pain) Qty: 20 RF: 0 tramadol 50 mg tablet 50 mg PO BID PRN (Reason: pain) Qty: 10 RF: 0 No Action ibuprofen 800 mg tablet 800 mg PO Q8H PRN (Reason: pain) Qty: 20 RF: 0 clindamycin HCl 300 mg capsule 300 mg PO Q6H 7 Days Qty: 28 RF: 0 hydrocodone-acetaminophen 5-325 mg tablet 1 tab PO Q4-6H PRN (Reason: pain) Qty: 7 RF: 0 hydrocodone-acetaminophen 5-325 mg tablet 1 tab PO Q4-6H PRN (Reason: pain) Qty: 7 RF: 0 cephalexin 500 mg capsule 500 mg PO QID Qty: 40 RF: 0 ibuprofen 600 mg tablet 600 mg PO Q6H PRN (Reason: pain) Qty: 30 RF: 0 acetaminophen [Tylenol] 325 mg tablet 650 mg PO Q6H PRN (Reason: pain) Qty: 30 RF: 0 irbesartan 300 mg tablet 300 mg PO DAILY RF: 0 amlodipine 10 mg tablet 10 mg PO DAILY RF: 0 chlorthalidone 25 mg tablet 25 mg PO DAILY RF: 0 aspirin [Adult Low Dose Aspirin] 81 mg tablet,delayed release (DR/EC) 81 mg PO DAILY RF: 0 Print Language: Greenlandic
[2020-10-05 12:45] VITALS: BP 122/56; PULSE 70; RESP 16; TEMP 36.6; O2SAT 96; BMI 56.8
== END 2020-10-05 14:07 | disposition home or self-care (01) ==
PROVIDERS: Emergency Provider Internal Medicine; PCP Nurse Practitioner Family
DX: M10.9 Gout, unspecified (principal); M79.672 Pain in left foot; I10 Essential (primary) hypertension; Z79.899 Other long term (current) drug therapy; Z79.82 Long term (current) use of aspirin; F17.210 Nicotine dependence, cigarettes, uncomplicated
CPT/HCPCS: 73630; 99283

== ENCOUNTER 2020-10-16 08:01 | Outpatient (REF) | payer OTHER, SELFPAY ==
--- NOTE | ~2020-10-16 | FL_ITS ---
EXAMINATION: XR GI SERIES CLINICAL INFORMATION: Obesity. Preop. COMPARISON: None TECHNIQUE: Upper GI was performed using thin and thick barium and effervescent granules. FINDINGS: Esophageal motility is normal. No esophageal hernia or reflux is seen. The stomach and duodenum are normal-appearing. No fold thickening, mass, ulcer or stricture is seen. FLUOROSCOPY TIME: 0.8 DOSE AREA PRODUCT: 12 michel per centimeter squared. 20 saved fluoroscopic images. FL/FL upper GI series IMPRESSION: Unremarkable examination.
--- NOTE | ~2020-10-16 | US_ITS ---
EXAMINATION: US COMPLETE ABDOMEN WITH LIVER ELASTOGRAPHY CLINICAL INFORMATION: Obesity, GERD. COMPARISON: None. TECHNIQUE: Real-time imaging of the abdominal viscera. Noninvasive ultrasound liver fibrosis assessment is performed using Miguel ElastPQ point quantification shear wave elastography (pSWE) with a C5-2 MHz transducer. Multiple elastography samples are obtained. FINDINGS: PANCREAS: Normal. The visualized pancreatic head and body are normal in appearance. The remainder of the pancreas is obscured from visualization by the overlying bowel gas. ABDOMINAL AORTA: The proximal, middle, and distal aortic segments are normal in caliber. INFERIOR VENA CAVA: Visualized portions are normal. LIVER: Normal. The liver demonstrates normal size, contour. Echogenicity is within normal limits. No focal lesion or intrahepatic biliary duct dilatation. The right lobe measures 17.8 cm in length. The left lobe measures 13.3 cm in length. Portal flow is hepatopedal. Shear wave liver elastography median stiffness is 0.11 m/s (reference: normal median stiffness is 1.3 m/s or less). IQR/median stiffness to assess sampling precision is 0.05 (reference: good quality data set is IQR/median stiffness of 0.15 or less). GALLBLADDER: Normal. The gallbladder is physiologically distended without evidence of stones, sludge, polyps, wall thickening or pericholecystic fluid. COMMON BILE DUCT: Normal in caliber measuring 0.4 cm in diameter. RIGHT KIDNEY: Normal. No hydronephrosis. No renal calculi or focal parenchymal lesions. The kidney measures 15.7 cm in maximum dimension. LEFT KIDNEY: Normal. No hydronephrosis. No renal calculi or focal parenchymal lesions. The kidney measures 13.1 cm in maximum dimension. SPLEEN: Normal. The spleen measures 12.1 cm in maximum dimension. FREE FLUID: None. US/US abdomen comp w elastography IMPRESSION: 1. Right lobe measures 17.8 cm, which could be related to body habitus versus mild enlargement. No focal lesions. No biliary duct dilatation. 2. Liver elastography: Median stiffness measures 0.11 m/s, which correlates with high probability of normal. REFERENCE: Society of Radiologists in Ultrasound Liver Stiffness Thresholds (2020): LIVER STIFFNESS THRESHOLDS: *Liver Stiffness equal or less than 1.3 m/s: High probability of being normal. *Liver Stiffness less than 1.7 m/s: In the absence of other known clinical signs, rules out compensated advanced chronic liver disease. *Liver Stiffness 1.7-2.1 m/s: Suggestive of compensated advanced chronic liver disease but need further test for confirmation. *Liver Stiffness over 2.1 m/s: Rules in compensated advanced chronic liver disease. *Liver Stiffness over 2.4 m/s: Suggestive of clinically significant portal hypertension. QUALITY OF DATA SET: *IQR/Median value equal or less than 0.15 implies a quality data set. *IQR/Median value over 0.15 implies a poor quality data set. SIGNIFICANT CHANGE FROM PRIOR EXAM: Significant change if liver stiffness measurement is 10% or greater from prior exam. OTHER CONSIDERATIONS: The stage of liver fibrosis may be overestimated in the setting of acute hepatitis, liver inflammation, elevated liver function tests, hepatic vascular congestion, obstructive cholestasis, non-fasting state, and infiltrative diseases such as amyloidosis and lymphoma. In some patients with NAFLD, the liver stiffness thresholds for compensated advanced chronic liver disease may be lower. In causes other than viral hepatitis and NAFLD, liver stiffness thresholds are not well established.
== END 2020-10-16 08:02 | disposition home or self-care (01) ==
LOC: HO.US 08:01
PROVIDERS: PCP Nurse Practitioner Family; Visit Provider Surgery
DX: Z01.818 Encounter for other preprocedural examination (principal); E66.01 Morbid (severe) obesity due to excess calories; K21.9 Gastro-esophageal reflux disease without esophagitis; G47.33 Obstructive sleep apnea (adult) (pediatric); I10 Essential (primary) hypertension
CPT/HCPCS: 74240; 76705; 76981

== ENCOUNTER 2020-11-06 08:26 | Outpatient (REF) | payer OTHER, SELFPAY ==
[2020-11-07 11:53] LABS: H Pylori Breath Test Negative (Negative)
== END 2020-11-06 08:27 | disposition home or self-care (01) ==
LOC: HO.LNP 08:26
PROVIDERS: Surgery; PCP Nurse Practitioner Family; Referring Provider Nurse Practitioner Family; Visit Provider Physician Assistant
DX: I10 Essential (primary) hypertension (principal); G47.33 Obstructive sleep apnea (adult) (pediatric); E66.01 Morbid (severe) obesity due to excess calories
CPT/HCPCS: 83013; 99211

== ENCOUNTER → 2020-11-14 09:38 | Outpatient (BNVA) | payer OTHER, SELFPAY | PROVIDERS: PCP Nurse Practitioner Family; Referring Provider Internal Medicine; Visit Provider Nurse Practitioner Family | DX: G47.33 Obstructive sleep apnea (adult) (pediatric) (principal) | CPT/HCPCS: 99202 ==

== ENCOUNTER → 2020-12-28 12:01 | Outpatient (BNVA) | payer OTHER, SELFPAY | PROVIDERS: Referring Provider Physician Assistant; Visit Provider Physician Assistant Surgical ==

== ENCOUNTER → 2021-01-05 07:59 | Outpatient (BNVA) | payer OTHER, SELFPAY | PROVIDERS: Referring Provider Physician Assistant; Visit Provider Dietitian, Registered | DX: E66.01 Morbid (severe) obesity due to excess calories (principal); Z68.43 Body mass index [BMI] 50.0-59.9, adult | CPT/HCPCS: 97803 ==

== ENCOUNTER → 2021-02-01 08:12 | Outpatient (BNVA) | payer OTHER, SELFPAY | PROVIDERS: Referring Provider Surgery; Visit Provider Physician Assistant Surgical ==

== ENCOUNTER → 2021-03-08 08:12 | Outpatient (BNVA) | payer OTHER, SELFPAY | PROVIDERS: Referring Provider Surgery; Visit Provider Dietitian, Registered | DX: E66.01 Morbid (severe) obesity due to excess calories (principal) | CPT/HCPCS: 97803 ==

== ENCOUNTER 2021-04-03 18:45 | Emergency (ER) | payer OTHER, SELFPAY ==
--- NOTE | ~2021-04-03 | XR_ITS ---
EXAMINATION: XR CHEST CLINICAL INFORMATION: Edema. COMPARISON: Chest radiograph dated from 09/04/2020. TECHNIQUE: 2 views of the chest were obtained. FINDINGS: Normal appearance of the cardiomediastinal silhouette. No focal airspace opacities, pleural effusions or pneumothorax. No acute osseous abnormalities. The upper abdomen is within normal limits. XR/XR chest 2V IMPRESSION: No acute cardiopulmonary findings.
--- NOTE | ~2021-04-03 | XR_ITS ---
EXAMINATION: XR HIP, RIGHT CLINICAL INFORMATION: Atraumatic pain COMPARISON: None TECHNIQUE: Two views of the right hip. FINDINGS: Visualized portion of the proximal right femur demonstrate no fracture. Right femoral head is well-seated within the acetabulum. Femoral acetabular joint space is well-maintained. Tiny osteophyte noted along the superolateral acetabular margin. Pelvic ring is intact. Sacroiliac joints are symmetric. XR/XR hip RT w PEL1V IMPRESSION: Mild degenerative changes of the right hip.
--- NOTE | ~2021-04-03 | XR_ITS ---
EXAMINATION: XR ELBOW, RIGHT CLINICAL INFORMATION: Atraumatic right elbow pain. COMPARISON: None TECHNIQUE: AP, lateral, and oblique views of the right elbow. FINDINGS: The bones and soft tissues are normal. No fracture or joint effusion. Alignment is anatomic. Joint spaces are maintained. XR/XR elbow RT 2V IMPRESSION: Unremarkable right elbow.
[2021-04-03 19:11] VITALS: BP 158/84; PULSE 75; RESP 18; TEMP 36.8; O2SAT 98; BMI 53.1
[2021-04-03 19:24] LABS: MANUAL DIFF FLAG NO
[2021-04-03 19:26] LABS: Basophils Percent Auto 0.3 % (0-2); Eosinophils Absolute Auto 0.3 X10*3/uL (0.0-0.4); Eosinophils Percent Auto 3.2 % (0-4); Hematocrit 45.3 % (42.0-52.0); Hemoglobin 14.2 g/dl (14.0-18.0); Imm Gran Abs Auto 0.03 X10*3/uL (0.00-0.03); Imm Gran Pct Auto 0.3 % (0.0-0.4); Lymphocytes Absolute Auto 2.8 X10*3/uL (1.2-4.9); Lymphocytes Percent Auto 29.3 % (20-40); Mean Corpuscular HGB Conc 31.3 g/dl (31.0-36.0); Mean Corpuscular Hemoglobin 27.5 pg (27.0-33.0); Mean Corpuscular Volume 87.8 fL (80.0-98.0); Mean Platelet Volume 9.8 fL (9.4-12.4); Monocytes Absolute Auto 0.6 X10*3/uL (0.1-1.2); Monocytes Percent Auto 6.6 % (2-11); Neutrophils Absolute Auto 5.7 x10*3/uL (2.0-8.3); Neutrophils Percent Auto 60.3 % (45-73); Platelet Count 304 X10*3/uL (160-400); Red Blood Count 5.16 X10*6/uL (4.60-5.80); Red Cell Distribution Width 13.6 % (11.0-16.0); White Blood Count 9.5 X10*3/uL (4.8-10.8)
[2021-04-03 19:42] LABS: Alanine Aminotransferase 23 U/L (0-40); Albumin Level 3.8 g/dL (3.5-5.0); Alkaline Phosphatase 69 U/L (39-117); Anion Gap 10 (12-20); Aspartate Amino Transferase 18 U/L (5-37); Bilirubin Total 0.2 mg/dL (0.0-1.0); Blood Urea Nitrogen 14 mg/dL (9-16); Calcium 9.3 mg/dL (8.4-10.2); Carbon Dioxide 30 mmol/L (22-29); Chloride 106 mmol/L (96-108); Creatinine Clr Calc Pharmacy 167.4; Estimated Glomerular Filt Rate > 60; Glucose Random 94 mg/dL (60-115); Potassium 4.6 mmol/L (3.3-5.1); Sodium 141 mmol/L (135-145); Total Protein 6.8 g/dL (6.5-8.0)
[2021-04-03 19:47] LABS: B Type Natriuretic Peptide < 10 pg/mL (<100)
--- NOTE | 2021-04-03 21:07 | ED.GENADULT ---
HPI - General Adult General Chief complaint: General Medical Stated complaint: numbness in his leg and thigh, elbow pain Time Seen by Provider: 04/03/21 20:56 Source: patient Mode of arrival: ambulatory Limitations: no limitations History of Present Illness HPI narrative: Patient morbidly obese comes here for right elbow and right hip pain for last 3 4 days no fall no injury patient does have a history of sleep apnea and also complaining of leg edema patient already taking chlorthalidone. Does have chronic shortness of breath but not increased lately no fever no chills no urinary complaints no back pain no leg weakness or paresthesia Related Data Home Medications Medication Instructions Recorded Confirmed aspirin 81 mg tablet,delayed 81 mg PO DAILY 07/31/20 11/27/20 release (Adult Low Dose Aspirin) Previous Rx's Medication Instructions Recorded acetaminophen 325 mg tablet 650 mg PO Q6H PRN #30 tab 08/29/20 (Tylenol) cholecalciferol (vitamin D3) 125 125 mcg PO DAILY #30 cap 10/16/20 mcg (5,000 unit) capsule vitamin A palmitate 10,000 unit 10,000 unit PO .COMPLEX #30 cap 10/16/20 capsule amlodipine 10 mg tablet 10 mg PO DAILY 90 Days #90 tab 11/27/20 chlorthalidone 25 mg tablet 25 mg PO DAILY 90 Days #90 tab 11/27/20 irbesartan 300 mg tablet 300 mg PO DAILY 90 Days #90 tab 11/27/20 ibuprofen 800 mg tablet 800 mg PO Q8H 30 Days #90 tab 01/16/21 prednisone 20 mg tablet 40 mg PO DAILY #10 tab 04/03/21 tramadol 50 mg tablet 50 mg PO Q6H PRN #20 tab 04/03/21 Allergies Allergy/AdvReac Type Severity Reaction Status Date / Time oxycodone Allergy rash Verified 04/03/21 19:11 seafood Allergy Difficulty Verified 04/03/21 19:11 Breathing Review of Systems Review of Systems: Yes all other systems are reviewed and are negative PMFSH Past Medical History Medical History Anxiety COVID-19 Depression Essential hypertension Left knee pain Long-term use of aspirin therapy Morbid obesity Obese ANKUSH (obstructive sleep apnea) Right foot pain Right knee pain Strabismus Surgical History History of carpal tunnel surgery of right wrist History of tooth extraction Family History Family History Mother No problems noted. Father No problems noted. Sister No problems noted. Sister No problems noted. Sister Diabetes Hypertension Social History Social History Housing: Apartment Alcohol intake: current Alcohol intake frequency: holidays/special occasions only Alcohol type: beer, wine and hard liquor Patient Tobacco Use Status: Former Tobacco user Tobacco use type: Cigarette Cigarettes Per Day: 2 e-Cigarette/Vaping Use: Never Used Second Hand Smoke Exposure: No Advance Directives: No Advance Directives Information Provided: Yes service: No Current occupational status: employed Current occupation: [email or web address] Current occupational exposures/hazards: No Physical Exam ED Vital Signs: Vital Signs - 24 hr 04/03/21 19:11 04/03/21 22:28 Temperature 98.3 F 98.7 F Pulse Rate 75 73 Respiratory Rate 18 Blood Pressure 158/84 H 147/92 H Pulse Oximetry 98 96 BMI result Body Mass Index 53.1 Appearance: Alert. Oriented X3. No acute distress. Eyes: No pallor or icterus ENT: Pharynx normal. Oral Mucosa moist Neck: Normal inspection. Neck supple. CVS: Normal heart rate and rhythm. Pulses normal. Respiratory: No respiratory distress. Equal air entry bilateral, no wheezing/rales/rhonchi Abdomen: Soft and nontender. Bowel sounds are present, no mass palpable, no CVA tenderness Skin: Skin warm and dry. Normal skin color. Normal skin turgor. Extremities: 2+ lower extremity edema. No calf tenderness tenderness radial head which increases on pronation. Tenderness at the right superior iliac crest which increases on abduction of the leg no skin changes no signs of infection good range of movement Neuro: Oriented X 3. No motor deficit. No sensory deficit.No cerebellar signs , cranial nerves II-XII intact Medical Decision Making MDM Narrative Medical decision making narrative: X-ray of chest right elbow and right hip negative for any acute symptoms likely from tendinitis. Patient already on water pill advised to increase the dose of water pill to 2 tablets daily and follow with PCP Lab Data Result diagrams: 04/03/21 19:18 04/03/21 19:18 Labs: Lab Results 04/03/21 04/03/21 04/03/21 Range/Units 19:18 19:18 19:18 WBC 9.5 (4.8-10.8) X10*3/uL RBC 5.16 (4.60-5.80) X10*6/uL Hgb 14.2 (14.0-18.0) g/dl Hct 45.3 (42.0-52.0) % MCV 87.8 (80.0-98.0) fL MCH 27.5 (27.0-33.0) pg MCHC 31.3 (31.0-36.0) g/dl RDW 13.6 (11.0-16.0) % Plt Count 304 (160-400) X10*3/uL MPV 9.8 (9.4-12.4) fL Immature Gran % (Auto) 0.3 (0.0-0.4) % Neut % (Auto) 60.3 (45-73) % Lymph % (Auto) 29.3 (20-40) % [place] % (Auto) 6.6 (2-11) % Eos % (Auto) 3.2 (0-4) % Baso % (Auto) 0.3 (0-2) % Lymph # (Auto) 2.8 (1.2-4.9) X10*3/uL [place] # (Auto) 0.6 (0.1-1.2) X10*3/uL Eos # (Auto) 0.3 (0.0-0.4) X10*3/uL Baso # (Auto) 0.0 (0.0-0.2) X10*3/uL Abs Immat Gran (auto) 0.03 (0.00-0.03) X10*3/uL Absolute Neuts (auto) 5.7 (2.0-8.3) x10*3/uL Absolute Nucleated RBC 0.000 (0.0-0.012) X10*3/uL Nucleated RBC % (auto) 0.0 (0.0-0.2) /100WBC Sodium 141 (135-145) mmol/L Potassium 4.6 (3.3-5.1) mmol/L Chloride 106 (96-108) mmol/L Carbon Dioxide 30 H (22-29) mmol/L Anion Gap 10 L (12-20) BUN 14 (9-16) mg/dL Creatinine 0.85 (0.5-1.4) mg/dL Estim Creat Clear Calc 167.4 Estimated GFR > 60 Random Glucose 94 (60-115) mg/dL Calcium 9.3 (8.4-10.2) mg/dL Total Bilirubin 0.2 (0.0-1.0) mg/dL AST 18 (5-37) U/L ALT 23 (0-40) U/L Alkaline Phosphatase 69 (39-117) U/L B-Natriuretic Peptide < 10 (<100) pg/mL Total Protein 6.8 (6.5-8.0) g/dL Albumin 3.8 (3.5-5.0) g/dL Discharge Plan Discharge Clinical Impression: Tendonitis involving right hip abductors, Right elbow tendinitis Patient Disposition: Home, Self-Care Instructions: Tendinitis (ED) Additional Instructions: Take pain medication advised Prednisone as prescribed 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 for further evaluation Prescriptions: New prednisone 20 mg tablet 40 mg PO DAILY Qty: 10 0RF tramadol 50 mg tablet 50 mg PO Q6H PRN (Reason: pain) Qty: 20 0RF No Action ibuprofen 800 mg tablet 800 mg PO Q8H 30 Days Qty: 90 1RF acetaminophen [Tylenol] 325 mg tablet 650 mg PO Q6H PRN (Reason: pain) Qty: 30 0RF aspirin [Adult Low Dose Aspirin] 81 mg tablet,delayed release (DR/EC) 81 mg PO DAILY 0RF amlodipine 10 mg tablet 10 mg PO DAILY 90 Days Qty: 90 3RF chlorthalidone 25 mg tablet 25 mg PO DAILY 90 Days Qty: 90 3RF irbesartan 300 mg tablet 300 mg PO DAILY 90 Days Qty: 90 3RF vitamin A palmitate 10,000 unit capsule 10,000 unit PO .COMPLEX Qty: 30 0RF Rx Instructions: 10,000 units PO one per day; cholecalciferol (vitamin D3) 125 mcg (5,000 unit) capsule 125 mcg PO DAILY Qty: 30 2RF
[2021-04-03] MEDS: HYDROmorphone HCl 2 MG TABLET PO (22:20)
[2021-04-03] MEDS: dexAMETHasone 2 MG TABLET 10 MG PO (22:21)
[2021-04-03 22:28] VITALS: BP 147/92; PULSE 73; TEMP 37.1; O2SAT 96
== END 2021-04-03 23:31 | disposition home or self-care (01) ==
PROVIDERS: Emergency Provider Internal Medicine; PCP Nurse Practitioner Family
DX: M65.221 Calcific tendinitis, right upper arm (principal); M25.521 Pain in right elbow; M25.551 Pain in right hip; R06.02 Shortness of breath; Z79.899 Other long term (current) drug therapy; Z87.891 Personal history of nicotine dependence
CPT/HCPCS: 36415; 71046; 73070; 73502; 80053; 83880; 85025; 99283; 99284; J8540

== ENCOUNTER 2021-04-24 07:03 | Emergency (ER) | payer OTHER, SELFPAY ==
--- NOTE | ~2021-04-24 | XR_ITS ---
EXAMINATION: XR HIP, RIGHT CLINICAL INFORMATION: Pain COMPARISON: Previous x-ray March 2021 TECHNIQUE: Two views of the right hip and one view of the pelvis. FINDINGS: Bone alignment is normal. No fracture or dislocation is seen. There is a small osteophyte along the superior lateral acetabulum. The joint space is otherwise normal. Bones of the pelvis are normal. There are small soft tissue calcifications or ossifications adjacent to the greater trochanters. Soft tissues are otherwise normal.. XR/XR hip RT min 2V IMPRESSION: Mild degenerative changes of the right hip similar to previous exam.
[2021-04-24 07:33] VITALS: BP 127/80; PULSE 92; RESP 20; TEMP 37.1; O2SAT 99; BMI 63.8
--- NOTE | 2021-04-24 08:04 | ED_ITS ---
HPI - Extremity Injury (Lower) General Chief Complaint: Extremity Injury, Lower Stated Complaint: Hip/leg pain Time Seen by Provider: 04/24/21 07:39 Source: patient Mode of arrival: ambulatory Limitations: no limitations History of Present Illness HPI Narrative: 40-year-old male presents to the emergency department complaining of right lateral thigh pain. Patient thought that he might have an infection neck. Rashaad white states he has no history of infections that area he does take prednisone tramadol and ibuprofen for chronic arthritis. Patient denies any falls or injuries denies chest pain cough nausea vomiting or diarrhea. MD complaint: thigh injury Onset (ago): day(s) Related Data Previous Rx's Medication Instructions Recorded cholecalciferol (vitamin D3) 125 125 mcg PO DAILY #30 cap 10/16/20 mcg (5,000 unit) capsule vitamin A palmitate 10,000 unit 10,000 unit PO .COMPLEX #30 cap 10/16/20 capsule amlodipine 10 mg tablet 10 mg PO DAILY 90 Days #90 tab 11/27/20 chlorthalidone 25 mg tablet 25 mg PO DAILY 90 Days #90 tab 11/27/20 irbesartan 300 mg tablet 300 mg PO DAILY 90 Days #90 tab 11/27/20 ibuprofen 800 mg tablet 800 mg PO Q8H 30 Days #90 tab 01/16/21 prednisone 20 mg tablet 40 mg PO DAILY #10 tab 04/03/21 tramadol 50 mg tablet 50 mg PO Q6H PRN #20 tab 04/03/21 aspirin 81 mg tablet,delayed 81 mg PO DAILY 90 Days #90 tab 04/05/21 release (Adult Low Dose Aspirin) Allergies Allergy/AdvReac Type Severity Reaction Status Date / Time oxycodone Allergy rash Verified 04/05/21 17:22 seafood Allergy Difficulty Verified 04/05/21 17:22 Breathing Review of Systems Review of Systems: Review of systems: General: Patient denies any fever chills recent illness or falls Musculoskeletal: Denies back pain or body aches or other injuries HEENT: denies headache, runny nose, ear pain Respiratory: denies shortness of breath, cough Cardiovascular: no chest pain or palpitations : denies dysuria, frequency Abdomen: no nausea vomiting denies abdominal pain Extremities: no swelling, right thigh pain Skin: no diaphoresis Yes all other systems are reviewed and are negative [facility] Past Medical History Medical History (Updated 04/24/21 @ 08:08 by Joaquin Amanda DO) Anxiety COVID-19 Depression Elbow tendinitis Essential hypertension Foot callus Left knee pain Long-term use of aspirin therapy Morbid obesity Obese ANKUSH (obstructive sleep apnea) Polyarthralgia Right foot pain Right knee pain Strabismus Super-super obese Uncontrolled hypertension Surgical History History of carpal tunnel surgery of right wrist History of tooth extraction Family History Family History Mother No problems noted. Father No problems noted. Sister No problems noted. Sister No problems noted. Sister Diabetes Hypertension Social History Social History Housing: Apartment Alcohol intake: current Alcohol intake frequency: holidays/special occasions only Alcohol type: beer, wine and hard liquor Patient Tobacco Use Status: Former Tobacco user Tobacco use type: Cigarette Cigarettes Per Day: 2 e-Cigarette/Vaping Use: Never Used Second Hand Smoke Exposure: No Advance Directives: No Advance Directives Information Provided: No service: No Current occupational status: unemployed Physical Exam Vital Signs: Vital Signs: Last Vital Signs Temp 98.7 F 04/24/21 07:33 Pulse 92 04/24/21 07:33 Resp 20 04/24/21 07:33 BP 127/80 04/24/21 07:33 Pulse Ox 99 04/24/21 07:33 BMI result Body Mass Index 63.8 General: Well-appearing well-nourished in no signs of distress HEENT: Normocephalic atraumatic Neck: No signs of JVD, no masses no tenderness or lymphadenopathy Cardiovascular: Regular rate and rhythm Respiratory: Clear to auscultation bilaterally Abdomen: Soft nontender no masses rectal exam performed guiac negative quality c ontrol confirmed. Extremities: No redness or swelling pain is along the iliotibial band on the right thigh no change or difference and palpation from the right to left side there is no signs infection no edema patient has normal strength to bilateral lower extremities and normal reflexes Normal pedal pulses no signs of edema Skin: Dry warm no rashes Back: No tenderness full ROM MDM - Extremity Injury (Lower) MDM Narrative Medical decision making narrative: Patient looks well has no signs of infection patient will be discharged home Discharge Plan Discharge Clinical Impression: Iliotibial band syndrome Patient Disposition: Home, Self-Care Instructions: Iliotibial Band Syndrome (ED) Additional Instructions: Please call to follow up with your doctor. if you have any other concerns please return to the ED. Prescriptions: No Action ibuprofen 800 mg tablet 800 mg PO Q8H 30 Days Qty: 90 1RF aspirin [Adult Low Dose Aspirin] 81 mg tablet,delayed release (DR/EC) 81 mg PO DAILY 90 Days Qty: 90 1RF prednisone 20 mg tablet 40 mg PO DAILY Qty: 10 0RF tramadol 50 mg tablet 50 mg PO Q6H PRN (Reason: pain) Qty: 20 0RF amlodipine 10 mg tablet 10 mg PO DAILY 90 Days Qty: 90 3RF chlorthalidone 25 mg tablet 25 mg PO DAILY 90 Days Qty: 90 3RF irbesartan 300 mg tablet 300 mg PO DAILY 90 Days Qty: 90 3RF vitamin A palmitate 10,000 unit capsule 10,000 unit PO .COMPLEX Qty: 30 0RF Rx Instructions: 10,000 units PO one per day; cholecalciferol (vitamin D3) 125 mcg (5,000 unit) capsule 125 mcg PO DAILY Qty: 30 2RF
[2021-04-24] MEDS: Ketorolac Tromethamine 30 MG/ML VIAL 15 MG IM (08:28)
[2021-04-24] MEDS: Acetaminophen 325 MG TABLET 650 MG PO (08:28)
== END 2021-04-24 08:32 | disposition home or self-care (01) ==
PROVIDERS: Emergency Provider Student in an Organized Health Care Education/Training Program; PCP Internal Medicine
DX: M76.31 Iliotibial band syndrome, right leg (principal); M79.651 Pain in right thigh; I10 Essential (primary) hypertension; Z79.82 Long term (current) use of aspirin
CPT/HCPCS: 73502; 96372; 99283; 99284; J1885

== ENCOUNTER → 2021-05-07 20:30 | Outpatient (REF) | payer OTHER, SELFPAY | LOC: HO.SL 20:30 | PROVIDERS: PCP Internal Medicine; Visit Provider Nurse Practitioner Family | DX: G47.33 Obstructive sleep apnea (adult) (pediatric) (principal); E66.01 Morbid (severe) obesity due to excess calories | CPT/HCPCS: 95811 ==

== ENCOUNTER → 2021-05-17 11:47 | Outpatient (BNVA) | payer OTHER, SELFPAY | PROVIDERS: PCP Internal Medicine; Referring Provider Internal Medicine; Visit Provider Internal Medicine | DX: I10 Essential (primary) hypertension (principal) ==

== ENCOUNTER 2021-05-17 12:26 | Emergency (ER) | payer OTHER, SELFPAY ==
--- NOTE | ~2021-05-17 | US_ITS ---
EXAMINATION: US VENOUS ULTRASOUND WITH DOPPLER LOWER EXTREMITY, RIGHT CLINICAL INFORMATION: Right lower extremity pain. COMPARISON: No similar priors. TECHNIQUE: Ultrasound of the deep veins is performed from the hip to the calf with compression sonography and color and pulse Doppler assessment. Spectral analysis with color-flow imaging is performed. FINDINGS: Examination is somewhat limited due to patient body habitus and subcutaneous swelling. The peroneal vein was not visualized. Evaluation of compression is limited due to patient body habitus and pain. There is however normal respiratory variation, augmented flow, and color Doppler in the visualized common femoral vein, superficial femoral vein, profunda femoral vein, popliteal vein, and the trifurcation region. There is no significant popliteal fossa cyst. If the patient's symptoms persist, followup ultrasound in 5 days 7 days might be of value to exclude proximal propagation from a non-visualized calf vein. US/US venous duplex LE RT IMPRESSION: No DVT demonstrated in the right lower extremity with the caveat of limited evaluation of compressibility and lack of visualization of the peroneal veins as above.
--- NOTE | ~2021-05-17 | XR_ITS ---
EXAMINATION: XR FEMUR, RIGHT CLINICAL INFORMATION: Pain. COMPARISON: Radiograph of the right hip dated from 04/24/2021. TECHNIQUE: AP and lateral views of the right femur were obtained. FINDINGS: No evidence of acute fractures or malalignment. Mild degenerative osteoarthritis of the right hip with some degree of joint space narrowing and subcortical sclerosis. No unexpected radiopaque foreign bodies or joint effusions. XR/XR femur RT 2V IMPRESSION: No acute fractures or malalignment. Mild degenerative osteoarthritis.
[2021-05-17 13:44] VITALS: BP 149/76; PULSE 77; RESP 18; TEMP 36.1; O2SAT 96; BMI 62.8
--- NOTE | 2021-05-17 15:47 | ED.GENADULT ---
HPI - General Adult General Chief complaint: Extremity Injury, Lower Stated complaint: R leg pain Time Seen by Provider: 05/17/21 15:47 History of Present Illness HPI narrative: Patient complains of pain in his right thigh lateral and back of the thigh for several weeks, he has had no injury, he was seen here for the same several weeks ago and had a right hip x-ray which was negative and was diagnosed with muscle pain He has no difficulty breathing, no fever, he has not had a rash or redness there, he has no trouble walking Related Data Previous Rx's Medication Instructions Recorded amlodipine 10 mg tablet 10 mg PO DAILY 90 Days #90 tab 11/27/20 chlorthalidone 25 mg tablet 25 mg PO DAILY 90 Days #90 tab 11/27/20 irbesartan 300 mg tablet 300 mg PO DAILY 90 Days #90 tab 11/27/20 ibuprofen 800 mg tablet 800 mg PO Q8H 30 Days #90 tab 01/16/21 aspirin 81 mg tablet,delayed 81 mg PO DAILY 90 Days #90 tab 04/05/21 release (Adult Low Dose Aspirin) hydrocodone 5 mg-acetaminophen 325 1 tab PO Q6H PRN #14 tab 05/17/21 mg tablet ibuprofen 600 mg tablet 600 mg PO Q6H PRN #20 tab 05/17/21 Allergies Allergy/AdvReac Type Severity Reaction Status Date / Time oxycodone Allergy rash Verified 05/17/21 12:05 seafood Allergy Difficulty Verified 05/17/21 12:05 Breathing Review of Systems Review of Systems: Positive for right thigh pain Negatives are no fever no chills no dizziness no weakness no fainting no feeling faint no headache no neck pain no loss of appetite no difficulty breathing or swallowing no chest pain no shortness of breath no abdominal pain no rash no numbness weakness or tingling Yes all other systems are reviewed and are negative PMF[facility] Past Medical History Source: nursing notes reviewed Medical History (Updated 05/17/21 @ 18:36 by LORNA Bautista) Anxiety COVID-19 Depression Elbow tendinitis Essential hypertension Foot callus Left knee pain Long-term use of aspirin therapy Morbid obesity Obese ANKUSH (obstructive sleep apnea) Polyarthralgia Right foot pain Right knee pain Strabismus Super-super obese Uncontrolled hypertension Surgical History History of carpal tunnel surgery of right wrist History of tooth extraction Family History Family History Mother No problems noted. Father No problems noted. Sister No problems noted. Sister No problems noted. Sister Diabetes Hypertension Social History Social History (Updated 05/17/21 @ 12:07 by ALLISON Vázquez) Housing: Apartment Alcohol intake: current Alcohol intake frequency: holidays/special occasions only Alcohol type: beer, wine and hard liquor Patient Tobacco Use Status: Current someday Tobacco user Tobacco use type: Cigarette Cigarettes Per Day: 2 Years Smoked: 25 +/- e-Cigarette/Vaping Use: Never Used Second Hand Smoke Exposure: No Advance Directives: No Advance Directives Information Provided: Yes service: No Current occupational status: unemployed Physical Exam ED Vital Signs: Vital Signs - 24 hr 05/17/21 13:44 Temperature 97.0 F Pulse Rate 77 Respiratory Rate 18 Blood Pressure 149/76 H Pulse Oximetry 96 BMI result Body Mass Index 62.8 General appearance is no acute distress Head is normocephalic atraumatic Neck is supple nontender Respiratory no distress Lungs sounds are clear Abdomen is soft nontender Extremities there is full range of motion in all joints including the right hip There is tenderness on the right lateral and posterior thigh but the skin is otherwise normal without redness wound or rash I did not palpate any mass, there was full range of motion in the and hip, he could walk comfortably It was neurovascular intact distal Other extremities normal Skin no rash Neuro no focal motor sensory deficits Course Course Course Narrative: Ultrasound was done with no evidence of DVT in the right leg Femur x-ray showed mild arthritis in the hip His exam showed no evidence of infection, no sign of septic arthritis of hip or knee, no evidence of cellulitis or rash in the skin of the right hip, I could not palpate any mass He is advised to follow closely with his primary care doctor and orthopedist for further evaluation and he ambulated from the ER Discharge Plan Discharge Clinical Impression: Pain in right thigh Patient Disposition: Home, Self-Care Additional Instructions: X-ray showed some mild arthritis in the hip and ultrasound did not show any blood clot If pain continues follow closely with orthopedist and your doctor The workup today did not show the cause of the pain and the imaging would not show any mass or other issue with the deeper soft tissue Follow with your doctor orthopedist will decide if further imaging or evaluation is needed Return to the ER any time for any worse condition or any concerns Prescriptions: New hydrocodone-acetaminophen 5-325 mg tablet 1 tab PO Q6H PRN (Reason: pain) Qty: 14 0RF Rx Instructions: Narcotic may cause drowsiness no driving for 6 hours after taking This is a Tylenol containing products so do not use any additional Tylenol for 6 hours after taking ibuprofen 600 mg tablet 600 mg PO Q6H PRN (Reason: pain) Qty: 20 0RF No Action ibuprofen 800 mg tablet 800 mg PO Q8H 30 Days Qty: 90 1RF aspirin [Adult Low Dose Aspirin] 81 mg tablet,delayed release (DR/EC) 81 mg PO DAILY 90 Days Qty: 90 1RF amlodipine 10 mg tablet 10 mg PO DAILY 90 Days Qty: 90 3RF chlorthalidone 25 mg tablet 25 mg PO DAILY 90 Days Qty: 90 3RF irbesartan 300 mg tablet 300 mg PO DAILY 90 Days Qty: 90 3RF
--- NOTE | 2021-05-17 19:43 | PC.NURSE ---
PT WAS UPSET THAT HE DID NOT HAVE AND REASON GIVEN FOR HIS RIGHT LEG PAIN. PT WANTED A CT SCAN AFTER HIS OTHER TEST WERE NEGATIVE. PT IS AFRAID HE HAS CANCER PT WAS TOLD TO F/U AN OUT PT BY PROVIDER BECAUSE THE TEST WAS NOT MEDICALLY INDICATED AT THIS TIME.
== END 2021-05-17 19:50 | disposition home or self-care (01) ==
PROVIDERS: Emergency Provider Emergency Medicine; PCP Internal Medicine
DX: M79.651 Pain in right thigh (principal); M16.11 Unilateral primary osteoarthritis, right hip; I10 Essential (primary) hypertension; F17.200 Nicotine dependence, unspecified, uncomplicated; Z79.82 Long term (current) use of aspirin
CPT/HCPCS: 73552; 93005; 93971; 99202; 99283; 99284

== ENCOUNTER → 2021-07-06 09:31 | Outpatient (REF) | payer OTHER, SELFPAY ==
--- NOTE | 2021-07-06 09:34 | CA_ITS ---
Transthoracic Echocardiogram Patient (Last, First, Middle): Tavares Real, Gender: Male Date of : 1980 Age: 40 Procedure Date: 07/06/2021 Procedure Type: Transthoracic Echocardiogram Location: OP Height: 172.72 cm Weight: 201.85 kg BSA: 2.87 m2 Heart Rate: bpm BP: 130 / 64 mmHg Lumber Hacker: SB Referring MD: Cecilio Graham MD Symptoms: I10 - Essential (primary) hypertension Study Quality: Technically Difficult ECG Rhythm: Sinus Conclusions: - The left ventricular systolic function is normal. The visually estimated ejection fraction is between 60-65%. - No obvious valvular pathology seen on this study. Findings Procedure Information Contrast agent, definity, is being given per protocol without apparent complications. Left Ventricle Normal left ventricular cavity size. There is normal left ventricular wall thickness. The left ventricular systolic function is normal. The visually estimated ejection fraction is between 60-65%. There is no evidence of regional wall motion abnormalities. Diastolic function is normal for age. Right Ventricle The right ventricle was not well visualized. Probable normal systolic function based on annular Doppler velocity. Atria The left atrium was not well visualized. The right atrium was not well visualized. Aortic Valve The aortic valve was not well visualized. There is no aortic valve stenosis. There is no aortic valve regurgitation. Mitral Valve The mitral valve was not well visualized. There is no mitral valve regurgitation. There is no mitral valve stenosis. Pulmonic Valve The pulmonic valve is likely normal. Tricuspid Valve There is trace tricuspid valve regurgitation. Tricuspid regurgitation envelope is inadequate for calculation of right ventricular systolic pressure. Great Vessels The asc aorta is normal in size. Venous The inferior vena cava is normal in size and collapses greater than 50% with inspiration. Pericardium/Pleural There is no evidence of pericardial effusion. Prior Study Comparison No prior study available for comparison. Recommendations, Care & Conclusions No obvious valvular pathology seen on this study. Measurements 2D Linear Measurements IVSd: 1.00 0.6-0.9/0.6-1.0 cm LVIDd: 5.91 3.9-5.3/4.2-5.9 cm LVIDd Index: 2.06 2.4-3.2/2.2-3.1 cm/m2 LVIDs: 3.57 2.0-3.6 cm LVPWd: 0.94 0.7-1.1 cm LA Diam: 3.70 2.7-3.8/3.0-4.0 cm LAIDs Index: 1.29 1.5-2.3 cm/m2 LV Mass: 287.06 67-162/88-224 g LV Mass Index: 100.02 43-95/49-115 g/m2 LVOT Diam: 2.10 3.0+(-)1.3 cm 2D Systolic Function EF 4C: 74.10 >55% EF 2C: 72.30 >55% EF BiP: 73.60 >55% Mitral Valve MV Pk E: 1.06 MV PK A: 0.53 MV Decel Time: 184.00 E/A: 2.00 E'Lateral: 9.79 E'Medial: 9.25 E/E' Med: 11.50 E/E' Lat: 10.80 PHT: 54.00 MVA PHT: 4.07 Decel Glenn: 5.76 Aortic Valve AoV Pk Darnell: 1.51 AoV Pk Grad: 9.00 LVOT LVOT Pk Darnell: 1.39 LVOT Mn Darnell: 0.91 LVOT VTI: 0.23 LVOT Pk Grad: 8.00 LVOT Mn Grad: 4.00 LVOT Diam: 2.10 LVOT Area: 3.46 Diastolic Function MV Pk E: 1.06 MV Pk A: 0.53 E/A: 2.00 E'Medial: 9.25 E/E' Med: 11.50 E' Laterial: 9.79 E/E' Lat: 10.80 Right Ventricle TVS' Darnell: 15.40 Great Vessels Aorta Sinus of Valsalva: 3.26 2.0-3.5 cm Ao Asc: 3.20 2.1-3.4 cm Pulmonary Valve PV Pk Darnell: 1.26 Peak PV Grad: 6.00 Updated in Other Vendor System with Status of Final Cecilio Graham MD electronically signed on 07/08/2021 12:15:10 PM with status of Final
== END ==
LOC: HO.CARD 09:31
PROVIDERS: PCP Internal Medicine; Visit Provider Internal Medicine
DX: I10 Essential (primary) hypertension (principal)
CPT/HCPCS: 93306; Q9957

== ENCOUNTER → 2021-07-19 14:16 | Outpatient (BNVA) | payer OTHER, SELFPAY | PROVIDERS: PCP Internal Medicine; Referring Provider Internal Medicine; Visit Provider Nurse Practitioner Family | DX: I10 Essential (primary) hypertension (principal); R07.9 Chest pain, unspecified; E66.01 Morbid (severe) obesity due to excess calories; G47.33 Obstructive sleep apnea (adult) (pediatric); Z68.44 Body mass index [BMI] 60.0-69.9, adult | CPT/HCPCS: 99212 ==

== ENCOUNTER → 2021-07-30 15:53 | Outpatient (BNVA) | payer OTHER, SELFPAY | PROVIDERS: PCP Internal Medicine; Visit Provider Internal Medicine Rheumatology | DX: M25.571 Pain in right ankle and joints of right foot (principal); M25.50 Pain in unspecified joint; M54.50 Low back pain, unspecified; M25.561 Pain in right knee; M77.11 Lateral epicondylitis, right elbow | CPT/HCPCS: 99202 ==

== ENCOUNTER → 2021-10-10 10:42 | Outpatient (BNVA) | payer OTHER, SELFPAY | PROVIDERS: PCP Internal Medicine; Visit Provider Nurse Practitioner Family | DX: G47.33 Obstructive sleep apnea (adult) (pediatric) (principal) | CPT/HCPCS: 99212 ==

== ENCOUNTER 2021-11-28 07:35 | Outpatient (REF) | payer OTHER, SELFPAY ==
--- NOTE | ~2021-11-28 | XR_ITS ---
EXAMINATION: XR LUMBOSACRAL SPINE CLINICAL INFORMATION: Pain COMPARISON: None TECHNIQUE: Three views of the lumbosacral spine. FINDINGS: Bone alignment is normal. No acute fracture or dislocation is seen. There is loss of height of the T12 vertebral body questionable for mild old compression fracture. There is degenerative disc disease at L1-L2. There is degenerative spondylosis at L1-L2 and L3-L4. There is multilevel degenerative spondylosis of the visualized lower thoracic spine. XR/XR lumbar spine 2-3V IMPRESSION: Degenerative changes.
--- NOTE | ~2021-11-28 | XR_ITS ---
EXAMINATION: XR ANKLE, RIGHT CLINICAL INFORMATION: Pain COMPARISON: None TECHNIQUE: AP, lateral, and mortise views of the right ankle. FINDINGS: Bone alignment is normal. No acute fracture or dislocation is seen. There is an old right lateral malleolar fracture. There is arthritis at the tibiotalar joint. The ankle mortise is otherwise normal. There is a large calcaneal spur at the Achilles tendon insertion. There are degenerative changes of the midfoot. XR/XR ankle RT min 3V IMPRESSION: Old lateral malleolar fracture. Mild arthritis at the ankle joint and midfoot. Calcaneal spur..
[2021-11-28 07:54] LABS: MANUAL DIFF FLAG NO
[2021-11-28 08:44] LABS: Basophils Percent Auto 0.3 % (0-2); Eosinophils Absolute Auto 0.2 X10*3/uL (0.0-0.4); Eosinophils Percent Auto 1.7 % (0-4); Hematocrit 46.2 % (42.0-52.0); Hemoglobin 14.7 g/dl (14.0-18.0); Imm Gran Abs Auto 0.02 X10*3/uL (0.00-0.03); Imm Gran Pct Auto 0.2 % (0.0-0.4); Lymphocytes Absolute Auto 2.1 X10*3/uL (1.2-4.9); Lymphocytes Percent Auto 23.1 % (20-40); Mean Corpuscular HGB Conc 31.8 g/dl (31.0-36.0); Mean Corpuscular Hemoglobin 27.8 pg (27.0-33.0); Mean Corpuscular Volume 87.5 fL (80.0-98.0); Mean Platelet Volume 10.8 fL (9.4-12.4); Monocytes Absolute Auto 0.6 X10*3/uL (0.1-1.2); Neutrophils Percent Auto 67.7 % (45-73); Platelet Count 324 X10*3/uL (160-400); Red Blood Count 5.28 X10*6/uL (4.60-5.80); Red Cell Distribution Width 13.7 % (11.0-16.0); White Blood Count 8.9 X10*3/uL (4.8-10.8)
[2021-11-28 09:18] LABS: C Reactive Protein 2.38 mg/dL (< or = 0.50); Rheumatoid Factor < 15.0 IU/mL (<15.0)
[2021-11-28 09:53] LABS: Erythrocyte Sedimentation Rate 26 MM/HR (0-15)
[2021-12-03 12:57] LABS: Cyclic Citrullinated Peptide <16 UNITS
== END 2021-11-28 07:36 | disposition home or self-care (01) ==
LOC: HO.XRAY 07:35
PROVIDERS: PCP Internal Medicine; Visit Provider Internal Medicine Rheumatology
DX: M54.50 Low back pain, unspecified (principal); M77.01 Medial epicondylitis, right elbow; M77.11 Lateral epicondylitis, right elbow; M75.81 Other shoulder lesions, right shoulder; M25.571 Pain in right ankle and joints of right foot
CPT/HCPCS: 36415; 72100; 73610; 85025; 85652; 86140; 86200; 86431; 99212

== ENCOUNTER → 2021-12-12 09:39 | Outpatient (BNVA) | payer OTHER, SELFPAY | PROVIDERS: PCP Internal Medicine; Visit Provider Nurse Practitioner Family | DX: G47.33 Obstructive sleep apnea (adult) (pediatric) (principal); Z99.89 Dependence on other enabling machines and devices | CPT/HCPCS: 99212 ==

== ENCOUNTER → 2022-03-25 09:34 | Outpatient (BNVA) | payer OTHER, SELFPAY | PROVIDERS: PCP Internal Medicine; Referring Provider Internal Medicine; Visit Provider Internal Medicine | DX: I10 Essential (primary) hypertension (principal); E66.01 Morbid (severe) obesity due to excess calories; G47.33 Obstructive sleep apnea (adult) (pediatric); Z79.899 Other long term (current) drug therapy; Z99.89 Dependence on other enabling machines and devices | CPT/HCPCS: 93005; 99212 ==

== ENCOUNTER → 2022-04-11 14:45 | Outpatient (BNVA) | payer OTHER, SELFPAY | PROVIDERS: PCP Internal Medicine; Visit Provider Physician Assistant Surgical | DX: Z13.89 Encounter for screening for other disorder (principal) ==

== ENCOUNTER 2022-04-22 10:12 | Outpatient (REF) | payer OTHER, SELFPAY ==
[2022-04-22 10:57] LABS: Hematocrit 46.5 % (42.0-52.0); Hemoglobin 14.7 g/dl (14.0-18.0); Mean Corpuscular HGB Conc 31.6 g/dl (31.0-36.0); Mean Corpuscular Hemoglobin 27.6 pg (27.0-33.0); Mean Corpuscular Volume 87.2 fL (80.0-98.0); Mean Platelet Volume 10.4 fL (9.4-12.4); Platelet Count 328 X10*3/uL (160-400); Red Blood Count 5.33 X10*6/uL (4.60-5.80); Red Cell Distribution Width 13.8 % (11.0-16.0); White Blood Count 9.4 X10*3/uL (4.8-10.8)
[2022-04-22 11:35] LABS: Alanine Aminotransferase 34 U/L (0-40); Alkaline Phosphatase 84 U/L (39-117); Anion Gap 14 (12-20); Aspartate Amino Transferase 24 U/L (5-37); Bilirubin Direct < 0.2 mg/dL (0.0-0.5); Bilirubin Total 0.5 mg/dL (0.0-1.0); Blood Urea Nitrogen 18 mg/dL (9-16); Calcium 9.4 mg/dL (8.4-10.2); Carbon Dioxide 31 mmol/L (22-29); Chloride 102 mmol/L (96-108); Cholesterol 180 mg/dL; Estimated Glomerular Filt Rate > 60; Glucose Random 93 mg/dL (60-115); HDL Cholesterol 50 mg/dL; LDL Cholesterol Calculated 121 mg/dl; Potassium 4.4 mmol/L (3.3-5.1); Sodium 143 mmol/L (135-145); Total Protein 7.1 g/dL (6.5-8.0); Triglycerides 46 mg/dL
[2022-04-22 11:57] LABS: Thyroid Stimulating Hormone 1.02 uIU/mL (0.32-4.0)
== END 2022-04-22 10:13 | disposition home or self-care (01) ==
LOC: HO.LAB 10:12
PROVIDERS: PCP Internal Medicine; Visit Provider Internal Medicine
DX: E66.01 Morbid (severe) obesity due to excess calories (principal); I10 Essential (primary) hypertension; Z68.43 Body mass index [BMI] 50.0-59.9, adult
CPT/HCPCS: 36415; 80048; 80061; 80076; 84443; 85027

== ENCOUNTER → 2022-04-25 08:08 | Outpatient (BNVA) | payer OTHER, SELFPAY | PROVIDERS: PCP Internal Medicine; Visit Provider Nurse Practitioner Family | DX: G47.33 Obstructive sleep apnea (adult) (pediatric) (principal); Z99.89 Dependence on other enabling machines and devices | CPT/HCPCS: 99212 ==

== ENCOUNTER 2022-04-30 18:26 | Emergency (ER) | payer OTHER, SELFPAY ==
--- NOTE | ~2022-04-30 | CT_ITS ---
EXAMINATION: CT ABDOMEN AND PELVIS WITHOUT CONTRAST CLINICAL INFORMATION: Left-sided back pain radiating to left testicle. COMPARISON: None TECHNIQUE: Multidetector volumetric imaging was performed from the superior aspect of the liver through the pubic symphysis. Sagittal and coronal reformatted images were obtained on the technologist's workstation. This CT examination was performed using dose optimization techniques as appropriate, variously including the following: *Automated exposure control *Adjustment of mA and/or kV according to patient size (this includes techniques or standardized protocols for targeted exams where dose is matched to indication/reason for exam; i.e. extremities or head) *Use of iterative reconstruction technique DLP: 1705 mGy-cm FINDINGS: LUNG BASES: Bibasilar focal consolidation with air bronchogram at the dependent lungs. LIVER, GALLBLADDER, AND BILIARY TREE: The liver is normal in size, shape, and attenuation. No focal hepatic lesion or biliary ductal dilatation is present. The gallbladder is unremarkable with no evidence of radiopaque gallstones, gallbladder wall thickening, or obvious pericholecystic inflammatory changes. PANCREAS: Unremarkable. SPLEEN: No focal splenic lesion. There is a small splenule at the medial inferior splenic margin. ADRENAL GLANDS: Unremarkable. KIDNEYS AND URETERS: The kidneys are normal in size, shape, and attenuation. No hydronephrosis, hydroureter, or calculi seen. No perinephric stranding. BLADDER: Unremarkable. GASTROINTESTINAL TRACT: The small and large bowel are unremarkable. The appendix is unremarkable. ABDOMINAL WALL: No significant hernia is appreciated. LYMPH NODES: Normal. VASCULAR: Unremarkable. PELVIC VISCERA: Unremarkable. OSSEOUS STRUCTURES: Degenerative spondylosis of the spine. CT/CT abdomen pelvis wo IV con IMPRESSION: 1. No acute abnormality CT scan abdomen pelvis. 2. Bibasilar focal consolidation. Fleischner guidelines were followed.
--- NOTE | ~2022-04-30 | US_ITS ---
EXAMINATION: US SCROTUM CLINICAL INFORMATION: Left testicular pain with question of torsion. COMPARISON: None TECHNIQUE: A sonogram of the scrotum was performed assessing michel-scale appearance and color Doppler flow. Spectral Doppler analysis of the arterial and venous flow were performed in the testes bilaterally. FINDINGS: RIGHT: Right testicle measures 4.0 x 2.4 x 3.1 cm, volume 15 mL. No focal testicular parenchymal lesions are visualized. Spectral Doppler analysis of the arterial and venous flow is normal in the right testis. Right epididymal head is normal in size. No right hydrocele or varicocele is seen. Right epididymal Doppler flow is normal. LEFT: Left testicle measures 3.6 x 2.5 x 3.0 cm, volume 14.0 mL. No focal testicular parenchymal lesions are visualized. Spectral Doppler analysis of the arterial and venous flow is normal in the left testis. Left epididymal head is normal in size. No left hydrocele or varicocele is seen. Left epididymal Doppler flow is normal. US/US scrotum IMPRESSION: Normal exam. No evidence of testicular torsion.
--- NOTE | ~2022-04-30 | US_ITS ---
EXAMINATION: US SCROTUM CLINICAL INFORMATION: Left testicular pain with question of torsion. COMPARISON: None TECHNIQUE: A sonogram of the scrotum was performed assessing michel-scale appearance and color Doppler flow. Spectral Doppler analysis of the arterial and venous flow were performed in the testes bilaterally. FINDINGS: RIGHT: Right testicle measures 4.0 x 2.4 x 3.1 cm, volume 15 mL. No focal testicular parenchymal lesions are visualized. Spectral Doppler analysis of the arterial and venous flow is normal in the right testis. Right epididymal head is normal in size. No right hydrocele or varicocele is seen. Right epididymal Doppler flow is normal. LEFT: Left testicle measures 3.6 x 2.5 x 3.0 cm, volume 14.0 mL. No focal testicular parenchymal lesions are visualized. Spectral Doppler analysis of the arterial and venous flow is normal in the left testis. Left epididymal head is normal in size. No left hydrocele or varicocele is seen. Left epididymal Doppler flow is normal. US/US scrotum doppler IMPRESSION: Normal exam. No evidence of testicular torsion.
[2022-04-30 18:33] VITALS: BP 145/74; PULSE 81; RESP 20; TEMP 36.6; O2SAT 98; BMI 70.4
--- NOTE | 2022-04-30 18:33 | ED.GENADULT ---
HPI - General Adult General Chief complaint: General Medical Stated complaint: back pain/ headache/ dizzy Time Seen by Provider: 04/30/22 22:12 Related Data Home Medications Medication Instructions Recorded Confirmed acetaminophen 650 mg 1,300 mg PO Q12H 11/28/21 03/25/22 tablet,extended release (Tylenol Arthritis Pain) Previous Rx's Medication Instructions Recorded aspirin 81 mg tablet,delayed 81 mg PO DAILY 90 days #90 tabs 09/26/21 release (Adult Low Dose Aspirin) amlodipine 10 mg tablet 10 mg PO DAILY 90 days #90 tabs 12/22/21 chlorthalidone 25 mg tablet 25 mg PO DAILY 90 days #90 tabs 12/22/21 irbesartan 300 mg tablet 300 mg PO DAILY 90 days #90 tabs 12/22/21 cyclobenzaprine 10 mg tablet 10 mg PO BEDTIME #14 tabs 04/26/22 ibuprofen 800 mg tablet 800 mg PO Q8H 30 days #90 tabs 04/26/22 ciprofloxacin HCl 500 mg tablet 500 mg PO Q12H #20 tabs 04/30/22 ibuprofen 400 mg tablet 400 mg PO Q6H PRN pain #20 tabs 04/30/22 Allergies Allergy/AdvReac Type Severity Reaction Status Date / Time oxycodone Allergy rash Verified 04/25/22 08:13 shellfish derived Allergy Anaphylaxis Verified 04/30/22 18:40 [facility] Past Medical History Medical History COVID-19 Essential hypertension Foot callus Long-term use of aspirin therapy Morbid obesity with BMI of 50.0-59.9, adult ANKUSH (obstructive sleep apnea) Polyarthralgia Right knee pain Strabismus Uncontrolled hypertension Surgical History History of carpal tunnel surgery of right wrist History of tooth extraction Family History Family History Mother No problems noted. Father No problems noted. Sister No problems noted. Sister No problems noted. Sister Diabetes Hypertension Social History Social History Housing: Apartment Alcohol intake: current Alcohol intake frequency: holidays/special occasions only Alcohol type: beer, wine and hard liquor Patient Tobacco Use Status: Former Tobacco user Tobacco use type: Cigarette Cigarettes Per Day: 2 Years Smoked: 25 +/- e-Cigarette/Vaping Use: Never Used Second Hand Smoke Exposure: Yes Advance Directives: No Advance Directives Information Provided: Yes service: No Current occupational status: unemployed Cognitive needs: No Hearing needs: No Vision needs: No Physical Exam ED Vital Signs: Vital Signs - 24 hr 04/30/22 18:33 04/30/22 22:55 04/30/22 23:34 Temperature 97.8 F 97.7 F 98.1 F Pulse Rate 81 75 80 Respiratory Rate 20 20 18 Blood Pressure 145/74 H 135/77 133/44 L Pulse Oximetry 98 95 97 Oxygen Delivery Method Room Air Room Air Room Air BMI result Body Mass Index 70.4 Course Course Course Narrative: TERRI--41-year-old male with a past medical history of ANKUSH, polyarthralgia, HTN, obesity, presenting to the ED complaining of STEWART, & back pain radiating to L testicle x4 days. Also reports subj fever & chills Afebrile, abdomen soft nontender, +L CVAT/lowo back on exam, ambulating w/steady gait Labs, UA, CT ordered in triage Medical Decision Making Lab Data 04/30/22 18:46 04/30/22 18:46 Labs: Lab Results 04/30/22 04/30/22 04/30/22 Range/Units 18:46 18:46 18:46 WBC 6.0 (4.8-10.8) X10*3/uL RBC 5.20 (4.60-5.80) X10*6/uL Hgb 14.6 (14.0-18.0) g/dl Hct 45.1 (42.0-52.0) % MCV 86.7 (80.0-98.0) fL MCH 28.1 (27.0-33.0) pg MCHC 32.4 (31.0-36.0) g/dl RDW 13.5 (11.0-16.0) % Plt Count 295 (160-400) X10*3/uL MPV 10.4 (9.4-12.4) fL Immature Gran % (Auto) 0.3 (0.0-0.4) % Neut % (Auto) 52.9 (45-73) % Lymph % (Auto) 31.4 (20-40) % [place] % (Auto) 10.6 (2-11) % Eos % (Auto) 4.5 H (0-4) % Baso % (Auto) 0.3 (0-2) % Lymph # (Auto) 1.9 (1.2-4.9) X10*3/uL [place] # (Auto) 0.6 (0.1-1.2) X10*3/uL Eos # (Auto) 0.3 (0.0-0.4) X10*3/uL Baso # (Auto) 0.0 (0.0-0.2) X10*3/uL Abs Immat Gran (auto) 0.02 (0.00-0.03) X10*3/uL Absolute Neuts (auto) 3.2 (2.0-8.3) x10*3/uL Absolute Nucleated RBC 0.000 (0.0-0.012) X10*3/uL Nucleated RBC % (auto) 0.0 (0.0-0.2) /100WBC Sodium 142 (135-145) mmol/L Potassium 3.8 (3.3-5.1) mmol/L Chloride 103 (96-108) mmol/L Carbon Dioxide 29 (22-29) mmol/L Anion Gap 14 (12-20) BUN 16 (9-16) mg/dL Creatinine 0.88 (0.5-1.4) mg/dL Estim Creat Clear Calc 185.7 Estimated GFR > 60 Random Glucose 92 (60-115) mg/dL Calcium 9.1 (8.4-10.2) mg/dL Magnesium 2.0 (1.6-2.6) mg/dL Total Bilirubin 0.3 (0.0-1.0) mg/dL Direct Bilirubin < 0.2 (0.0-0.5) mg/dL AST 26 (5-37) U/L ALT 36 (0-40) U/L Alkaline Phosphatase 75 (39-117) U/L Total Protein 6.8 (6.5-8.0) g/dL Albumin 3.8 (3.5-5.0) g/dL Lipase 29 (8-78) U/L Urine Color Urine Appearance Urine pH (5.0-9.0) Ur Specific Kiana (1.005-1.025) Urine Protein (Neg-Trace) mg/dL Urine Glucose (UA) (Negative) mg/dL Urine Ketones (Negative) mg/dL Urine Blood (Negative) Urine Nitrite (Negative) Ur Leukocyte Esterase (Negative) Chlam trachomat DNA PCR (Not Detect.) COVID-19 (JOHNATHAN) (Negative) COVID-19 Clin Com Influenza Type A (JESUS) Negative (Negative) Influenza Type B (JESUS) Negative (Negative) Influenza A & B Note See Note N.gonorrhoeae DNA (PCR) (Not Detect.) 04/30/22 04/30/22 04/30/22 Range/Units 18:46 19:49 23:38 WBC (4.8-10.8) X10*3/uL RBC (4.60-5.80) X10*6/uL Hgb (14.0-18.0) g/dl Hct (42.0-52.0) % MCV (80.0-98.0) fL MCH (27.0-33.0) pg MCHC (31.0-36.0) g/dl RDW (11.0-16.0) % Plt Count (160-400) X10*3/uL MPV (9.4-12.4) fL Immature Gran % (Auto) (0.0-0.4) % Neut % (Auto) (45-73) % Lymph % (Auto) (20-40) % [place] % (Auto) (2-11) % Eos % (Auto) (0-4) % Baso % (Auto) (0-2) % Lymph # (Auto) (1.2-4.9) X10*3/uL [place] # (Auto) (0.1-1.2) X10*3/uL Eos # (Auto) (0.0-0.4) X10*3/uL Baso # (Auto) (0.0-0.2) X10*3/uL Abs Immat Gran (auto) (0.00-0.03) X10*3/uL Absolute Neuts (auto) (2.0-8.3) x10*3/uL Absolute Nucleated RBC (0.0-0.012) X10*3/uL Nucleated RBC % (auto) (0.0-0.2) /100WBC Sodium (135-145) mmol/L Potassium (3.3-5.1) mmol/L Chloride (96-108) mmol/L Carbon Dioxide (22-29) mmol/L Anion Gap (12-20) BUN (9-16) mg/dL Creatinine (0.5-1.4) mg/dL Estim Creat Clear Calc Estimated GFR Random Glucose (60-115) mg/dL Calcium (8.4-10.2) mg/dL Magnesium (1.6-2.6) mg/dL Total Bilirubin (0.0-1.0) mg/dL Direct Bilirubin (0.0-0.5) mg/dL AST (5-37) U/L ALT (0-40) U/L Alkaline Phosphatase (39-117) U/L Total Protein (6.5-8.0) g/dL Albumin (3.5-5.0) g/dL Lipase (8-78) U/L Urine Color Yellow Urine Appearance Clear Urine pH 6.5 (5.0-9.0) Ur Specific Kiana >= 1.030 H (1.005-1.025) Urine Protein Trace (Neg-Trace) mg/dL Urine Glucose (UA) Negative (Negative) mg/dL Urine Ketones Trace (Negative) mg/dL Urine Blood Negative (Negative) Urine Nitrite Negative (Negative) Ur Leukocyte Esterase Negative (Negative) Chlam trachomat DNA PCR NOT DETECTED (Not Detect.) COVID-19 (JOHNATHAN) Negative (Negative) COVID-19 Clin Com See Note Influenza Type A (JESUS) (Negative) Influenza Type B (JESUS) (Negative) Influenza A & B Note N.gonorrhoeae DNA (PCR) NOT DETECTED (Not Detect.) Discharge Plan Discharge Clinical Impression: Pain in left testicle Patient Disposition: Home, Self-Care Instructions: Testicle Pain (ED), Orchitis (ED) Prescriptions: New ciprofloxacin HCl 500 mg tablet 500 mg PO Q12H Qty: 20 0RF ibuprofen 400 mg tablet 400 mg PO Q6H PRN (Reason: pain) Qty: 20 0RF No Action aspirin [Adult Low Dose Aspirin] 81 mg tablet,delayed release (DR/EC) 81 mg PO DAILY 90 Days Qty: 90 1RF chlorthalidone 25 mg tablet 25 mg PO DAILY 90 Days Qty: 90 3RF irbesartan 300 mg tablet 300 mg PO DAILY 90 Days Qty: 90 3RF amlodipine 10 mg tablet 10 mg PO DAILY 90 Days Qty: 90 3RF cyclobenzaprine 10 mg tablet 10 mg PO BEDTIME Qty: 14 0RF ibuprofen 800 mg tablet 800 mg PO Q8H 30 Days Qty: 90 0RF acetaminophen [Tylenol Arthritis Pain] 650 mg tablet extended release 1,300 mg PO Q12H Referrals: Adrian Villalpando MD [Primary Care Provider] - 05/02/22 Stand Alone Forms: Work/School Release Interventions: ED Discharge Assessment Last Done: 05/01/22 01:04 Discharge Date/Time: 05/01/22 01:04
[2022-04-30 19:07] LABS: MANUAL DIFF FLAG NO
[2022-04-30 19:09] LABS: Basophils Percent Auto 0.3 % (0-2); Eosinophils Absolute Auto 0.3 X10*3/uL (0.0-0.4); Eosinophils Percent Auto 4.5 % (0-4); Hematocrit 45.1 % (42.0-52.0); Hemoglobin 14.6 g/dl (14.0-18.0); Imm Gran Abs Auto 0.02 X10*3/uL (0.00-0.03); Imm Gran Pct Auto 0.3 % (0.0-0.4); Lymphocytes Absolute Auto 1.9 X10*3/uL (1.2-4.9); Lymphocytes Percent Auto 31.4 % (20-40); Mean Corpuscular HGB Conc 32.4 g/dl (31.0-36.0); Mean Corpuscular Hemoglobin 28.1 pg (27.0-33.0); Mean Corpuscular Volume 86.7 fL (80.0-98.0); Mean Platelet Volume 10.4 fL (9.4-12.4); Monocytes Absolute Auto 0.6 X10*3/uL (0.1-1.2); Monocytes Percent Auto 10.6 % (2-11); Neutrophils Absolute Auto 3.2 x10*3/uL (2.0-8.3); Neutrophils Percent Auto 52.9 % (45-73); Platelet Count 295 X10*3/uL (160-400); Red Cell Distribution Width 13.5 % (11.0-16.0)
[2022-04-30 19:26] LABS: COVID-19 Test Negative (Negative); IDNOW Serial# 16C4AD1C; IDNOW Serial# BCCEAD1C; Influenza A Negative (Negative); Influenza B2 Negative (Negative)
[2022-04-30 19:57] LABS: Appearance Urine Clear; Color Urine Yellow; Glucose Urine UA Negative (Negative); Leukocyte Esterase Urine Negative (Negative); Nitrite Urine Negative (Negative); PH 6.5 (5.0-9.0); Specific Gravity - Urine >= 1.030 (1.005-1.025); Urine Blood Negative (Negative); Urine Ketones Trace mg/dL (Negative); Urine Protein Trace mg/dL (Neg-Trace)
[2022-04-30 19:57] LABS: Alanine Aminotransferase 36 U/L (0-40); Albumin Level 3.8 g/dL (3.5-5.0); Alkaline Phosphatase 75 U/L (39-117); Anion Gap 14 (12-20); Aspartate Amino Transferase 26 U/L (5-37); Bilirubin Direct < 0.2 mg/dL (0.0-0.5); Bilirubin Total 0.3 mg/dL (0.0-1.0); Blood Urea Nitrogen 16 mg/dL (9-16); Calcium 9.1 mg/dL (8.4-10.2); Carbon Dioxide 29 mmol/L (22-29); Chloride 103 mmol/L (96-108); Creatinine Clr Calc Pharmacy 185.7; Estimated Glomerular Filt Rate > 60; Glucose Random 92 mg/dL (60-115); Lipase 29 U/L (8-78); Potassium 3.8 mmol/L (3.3-5.1); Sodium 142 mmol/L (135-145); Total Protein 6.8 g/dL (6.5-8.0)
--- NOTE | 2022-04-30 22:29 | ED_ITS ---
HPI - General Adult General Chief complaint: General Medical Stated complaint: back pain/ headache/ dizzy Time Seen by Provider: 04/30/22 22:12 History of Present Illness HPI narrative: Patient is a 41-year-old male larger in size weighs over 200 kg presented today with having abdominal pain from the left flank area radiating down to the left testicle. The pain is sharp. Not associated with urination. No fever no chills. No history of any rash. No vomiting. Patient from home. History of hypertension no history of kidney stones in the past. No diaphoresis. No change in bowel movement. No nausea no vomiting. No bowel urinary incontinence. No pain in the legs. Symptoms been ongoing for about 4 days. No history of abdominal surgery in the past Related Data Home Medications Medication Instructions Recorded Confirmed acetaminophen 650 mg 1,300 mg PO Q12H 11/28/21 03/25/22 tablet,extended release (Tylenol Arthritis Pain) Previous Rx's Medication Instructions Recorded aspirin 81 mg tablet,delayed 81 mg PO DAILY 90 days #90 tabs 09/26/21 release (Adult Low Dose Aspirin) amlodipine 10 mg tablet 10 mg PO DAILY 90 days #90 tabs 12/22/21 chlorthalidone 25 mg tablet 25 mg PO DAILY 90 days #90 tabs 12/22/21 irbesartan 300 mg tablet 300 mg PO DAILY 90 days #90 tabs 12/22/21 cyclobenzaprine 10 mg tablet 10 mg PO BEDTIME #14 tabs 04/26/22 ibuprofen 800 mg tablet 800 mg PO Q8H 30 days #90 tabs 04/26/22 ciprofloxacin HCl 500 mg tablet 500 mg PO Q12H #20 tabs 04/30/22 ibuprofen 400 mg tablet 400 mg PO Q6H PRN pain #20 tabs 04/30/22 Allergies Allergy/AdvReac Type Severity Reaction Status Date / Time oxycodone Allergy rash Verified 04/25/22 08:13 shellfish derived Allergy Anaphylaxis Verified 04/30/22 18:40 Review of Systems Review of Systems: Positive left flank pain Positive left testicular pain Yes all other systems are reviewed and are negative PMFSH Past Medical History Medical History COVID-19 Essential hypertension Foot callus Long-term use of aspirin therapy Morbid obesity with BMI of 50.0-59.9, adult ANKUSH (obstructive sleep apnea) Polyarthralgia Right knee pain Strabismus Uncontrolled hypertension Surgical History History of carpal tunnel surgery of right wrist History of tooth extraction Family History Family History Mother No problems noted. Father No problems noted. Sister No problems noted. Sister No problems noted. Sister Diabetes Hypertension Social History Social History Housing: Apartment Alcohol intake: current Alcohol intake frequency: holidays/special occasions only Alcohol type: beer, wine and hard liquor Patient Tobacco Use Status: Former Tobacco user Tobacco use type: Cigarette Cigarettes Per Day: 2 Years Smoked: 25 +/- e-Cigarette/Vaping Use: Never Used Second Hand Smoke Exposure: Yes Advance Directives: No Advance Directives Information Provided: Yes service: No Current occupational status: unemployed Cognitive needs: No Hearing needs: No Vision needs: No Physical Exam ED Vital Signs: Vital Signs - 24 hr 04/30/22 18:33 04/30/22 22:55 Temperature 97.8 F 97.7 F Pulse Rate 81 75 Respiratory Rate 20 20 Blood Pressure 145/74 H 135/77 Pulse Oximetry 98 95 Oxygen Delivery Method Room Air Room Air BMI result Body Mass Index 70.4 Appearance: Alert. Oriented X3. No acute distress. Eyes: Pupils equal, round and reactive to light. ENT: Pharynx normal. Neck: Normal inspection. Neck supple. No lymph nodes noted. No crepitus CVS: Normal heart rate and rhythm. Pulses normal. Normal S1 and S2 Respiratory: No respiratory distress. Breath sounds normal. No Wheezing. No rales Abdomen: Soft and nontender. No rigidity. No distention. good BS x4 Skin: Skin warm and dry. Normal skin color. Normal skin turgor. Examination of the genitalia done. There is mild tenderness on palpation of the left testicle. Cremasteric reflex intact. There is no discharge on stripping of the penis. Extremities: No lower extremity edema. Neurovascular intact to all extremities. No Lacerations. No Rash Neuro: Oriented X 3. No motor deficit. No sensory deficit. Moving all extermities. No slurred speech Medical Decision Making Medical Decision Making MDM Narrative: Patient has positive flank pain radiating to the testicular area. CT scan of the abdomen pelvis done. There is no evidence for diverticulitis. There is no evidence for kidney stone. Patient's urine grossly negative for any acute evidence of infection no evidence for pyelonephritis. CT also showed no evidence of obstruction no abscess no perforation. Patient's pain is sharp. There is no history of bowel urinary incontinence there is no focal weakness in the lower extremity no evidence of cauda equina syndrome. Has testicular pain patient sexually active with 1 partner. There is no penile discharge. He is not circumcised. Question orchitis. GC chlamydia was nevertheless sent. We will go ahead and get an ultrasound to rule out the possibility of torsion. Patient's flu swab was negative. COVID test negative Testicular ultrasound was done grossly negative for any evidence of torsion. Will give patient's Cipro for possible orchitis. Will discharge patient home. Differential Diagnosis Differential Diagnoses: The differential diagnosis associated with the presentation includes Kidney stone, diverticulitis, cauda equina syndrome, obstruction, abscess, perforation, orchitis, testicular torsion Lab Data [facility] Lab Attestation statement: I reviewed the patient's lab results. 04/30/22 18:46 04/30/22 18:46 Labs: Lab Results 04/30/22 04/30/22 04/30/22 Range/Units 18:46 18:46 18:46 WBC 6.0 (4.8-10.8) X10*3/uL RBC 5.20 (4.60-5.80) X10*6/uL Hgb 14.6 (14.0-18.0) g/dl Hct 45.1 (42.0-52.0) % MCV 86.7 (80.0-98.0) fL MCH 28.1 (27.0-33.0) pg MCHC 32.4 (31.0-36.0) g/dl RDW 13.5 (11.0-16.0) % Plt Count 295 (160-400) X10*3/uL MPV 10.4 (9.4-12.4) fL Immature Gran % (Auto) 0.3 (0.0-0.4) % Neut % (Auto) 52.9 (45-73) % Lymph % (Auto) 31.4 (20-40) % Mckean % (Auto) 10.6 (2-11) % Eos % (Auto) 4.5 H (0-4) % Baso % (Auto) 0.3 (0-2) % Lymph # (Auto) 1.9 (1.2-4.9) X10*3/uL Mckean # (Auto) 0.6 (0.1-1.2) X10*3/uL Eos # (Auto) 0.3 (0.0-0.4) X10*3/uL Baso # (Auto) 0.0 (0.0-0.2) X10*3/uL Abs Immat Gran (auto) 0.02 (0.00-0.03) X10*3/uL Absolute Neuts (auto) 3.2 (2.0-8.3) x10*3/uL Absolute Nucleated RBC 0.000 (0.0-0.012) X10*3/uL Nucleated RBC % (auto) 0.0 (0.0-0.2) /100WBC Sodium 142 (135-145) mmol/L Potassium 3.8 (3.3-5.1) mmol/L Chloride 103 (96-108) mmol/L Carbon Dioxide 29 (22-29) mmol/L Anion Gap 14 (12-20) BUN 16 (9-16) mg/dL Creatinine 0.88 (0.5-1.4) mg/dL Estim Creat Clear Calc 185.7 Estimated GFR > 60 Random Glucose 92 (60-115) mg/dL Calcium 9.1 (8.4-10.2) mg/dL Magnesium 2.0 (1.6-2.6) mg/dL Total Bilirubin 0.3 (0.0-1.0) mg/dL Direct Bilirubin < 0.2 (0.0-0.5) mg/dL AST 26 (5-37) U/L ALT 36 (0-40) U/L Alkaline Phosphatase 75 (39-117) U/L Total Protein 6.8 (6.5-8.0) g/dL Albumin 3.8 (3.5-5.0) g/dL Lipase 29 (8-78) U/L Urine Color Urine Appearance Urine pH (5.0-9.0) Ur Specific [place] (1.005-1.025) Urine Protein (Neg-Trace) mg/dL Urine Glucose (UA) (Negative) mg/dL Urine Ketones (Negative) mg/dL Urine Blood (Negative) Urine Nitrite (Negative) Ur Leukocyte Esterase (Negative) COVID-19 (JOHNATHAN) (Negative) COVID-19 Clin Com Influenza Type A (JESUS) Negative (Negative) Influenza Type B (JESUS) Negative (Negative) Influenza A & B Note See Note 04/30/22 04/30/22 Range/Units 18:46 19:49 WBC (4.8-10.8) X10*3/uL RBC (4.60-5.80) X10*6/uL Hgb (14.0-18.0) g/dl Hct (42.0-52.0) % MCV (80.0-98.0) fL MCH (27.0-33.0) pg MCHC (31.0-36.0) g/dl RDW (11.0-16.0) % Plt Count (160-400) X10*3/uL MPV (9.4-12.4) fL Immature Gran % (Auto) (0.0-0.4) % Neut % (Auto) (45-73) % Lymph % (Auto) (20-40) % Mckean % (Auto) (2-11) % Eos % (Auto) (0-4) % Baso % (Auto) (0-2) % Lymph # (Auto) (1.2-4.9) X10*3/uL Mckean # (Auto) (0.1-1.2) X10*3/uL Eos # (Auto) (0.0-0.4) X10*3/uL Baso # (Auto) (0.0-0.2) X10*3/uL Abs Immat Gran (auto) (0.00-0.03) X10*3/uL Absolute Neuts (auto) (2.0-8.3) x10*3/uL Absolute Nucleated RBC (0.0-0.012) X10*3/uL Nucleated RBC % (auto) (0.0-0.2) /100WBC Sodium (135-145) mmol/L Potassium (3.3-5.1) mmol/L Chloride (96-108) mmol/L Carbon Dioxide (22-29) mmol/L Anion Gap (12-20) BUN (9-16) mg/dL Creatinine (0.5-1.4) mg/dL Estim Creat Clear Calc Estimated GFR Random Glucose (60-115) mg/dL Calcium (8.4-10.2) mg/dL Magnesium (1.6-2.6) mg/dL Total Bilirubin (0.0-1.0) mg/dL Direct Bilirubin (0.0-0.5) mg/dL AST (5-37) U/L ALT (0-40) U/L Alkaline Phosphatase (39-117) U/L Total Protein (6.5-8.0) g/dL Albumin (3.5-5.0) g/dL Lipase (8-78) U/L Urine Color Yellow Urine Appearance Clear Urine pH 6.5 (5.0-9.0) Ur Specific Galax >= 1.030 H (1.005-1.025) Urine Protein Trace (Neg-Trace) mg/dL Urine Glucose (UA) Negative (Negative) mg/dL Urine Ketones Trace (Negative) mg/dL Urine Blood Negative (Negative) Urine Nitrite Negative (Negative) Ur Leukocyte Esterase Negative (Negative) COVID-19 (JOHNATHAN) Negative (Negative) COVID-19 Clin Com See Note Influenza Type A (JESUS) (Negative) Influenza Type B (JESUS) (Negative) Influenza A & B Note Discharge Plan Discharge Clinical Impression: Pain in left testicle Patient Disposition: Home, Self-Care Instructions: Testicle Pain (ED), Orchitis (ED) Prescriptions: New ciprofloxacin HCl 500 mg tablet 500 mg PO Q12H Qty: 20 0RF ibuprofen 400 mg tablet 400 mg PO Q6H PRN (Reason: pain) Qty: 20 0RF No Action aspirin [Adult Low Dose Aspirin] 81 mg tablet,delayed release (DR/EC) 81 mg PO DAILY 90 Days Qty: 90 1RF chlorthalidone 25 mg tablet 25 mg PO DAILY 90 Days Qty: 90 3RF irbesartan 300 mg tablet 300 mg PO DAILY 90 Days Qty: 90 3RF amlodipine 10 mg tablet 10 mg PO DAILY 90 Days Qty: 90 3RF cyclobenzaprine 10 mg tablet 10 mg PO BEDTIME Qty: 14 0RF ibuprofen 800 mg tablet 800 mg PO Q8H 30 Days Qty: 90 0RF acetaminophen [Tylenol Arthritis Pain] 650 mg tablet extended release 1,300 mg PO Q12H Referrals: Adrian Villalpnado MD [Primary Care Provider] - 05/02/22
[2022-04-30 22:55] VITALS: BP 135/77; PULSE 75; RESP 20; TEMP 36.5; O2SAT 95
[2022-04-30 23:34] VITALS: BP 133/44; PULSE 80; RESP 18; TEMP 36.7; O2SAT 97
--- NOTE | 2022-05-01 01:03 | PC.NURSE ---
Pt aox3. Discharge instructions reviewed with pt. Pt verbalizes understanding. Ambulatory with steady gait at discharge.
[2022-05-01 03:04] LABS: CT PCR NOT DETECTED (Not Detect.); NG PCR NOT DETECTED (Not Detect.)
== END 2022-05-01 01:04 | disposition home or self-care (01) ==
PROVIDERS: Physician Assistant; Emergency Provider Emergency Medicine Emergency Medical Services; PCP Internal Medicine
DX: N50.812 Left testicular pain (principal); Z20.822 Contact with and (suspected) exposure to COVID-19; I10 Essential (primary) hypertension; E66.01 Morbid (severe) obesity due to excess calories; Z68.45 Body mass index [BMI] 70 or greater, adult; Z87.891 Personal history of nicotine dependence; Z79.82 Long term (current) use of aspirin
CPT/HCPCS: 0353U; 74176; 76870; 80048; 80076; 81003; 83690; 83735; 85025; 87502; 87635; 93975; 99283; 99284

== ENCOUNTER → 2022-05-06 12:07 | Outpatient (BNVA) | payer OTHER, SELFPAY | PROVIDERS: PCP Internal Medicine; Visit Provider Physician Assistant Surgical | DX: Z11.0 Encounter for screening for intestinal infectious diseases (principal); E66.01 Morbid (severe) obesity due to excess calories; Z68.44 Body mass index [BMI] 60.0-69.9, adult | CPT/HCPCS: 99211; 99212 ==

== ENCOUNTER 2022-05-06 15:13 | Outpatient (REF) | payer OTHER, SELFPAY ==
[2022-05-08 11:54] LABS: H Pylori Breath Test Negative (Negative)
== END 2022-05-06 15:14 | disposition home or self-care (01) ==
LOC: HO.LNP 15:13
PROVIDERS: Visit Provider Physician Assistant Surgical
DX: E66.01 Morbid (severe) obesity due to excess calories (principal); Z68.43 Body mass index [BMI] 50.0-59.9, adult; I10 Essential (primary) hypertension
CPT/HCPCS: 83013

== ENCOUNTER → 2022-05-23 09:16 | Outpatient (BNVA) | payer OTHER, SELFPAY | PROVIDERS: PCP Internal Medicine; Visit Provider Nurse Practitioner Family | DX: G47.33 Obstructive sleep apnea (adult) (pediatric) (principal) | CPT/HCPCS: 99212 ==

== ENCOUNTER 2022-09-30 23:56 | Emergency (ER) | payer OTHER, SELFPAY ==
--- NOTE | ~2022-09-30 | CT_ITS ---
EXAMINATION: CT ABDOMEN AND PELVIS WITHOUT CONTRAST CLINICAL INFORMATION: Left lower quadrant pain. COMPARISON: 04/30/2022 TECHNIQUE: Multidetector volumetric imaging was performed from the superior aspect of the liver through the pubic symphysis. Sagittal and coronal reformatted images were obtained on the technologist's workstation. This CT examination was performed using dose optimization techniques as appropriate, variously including the following: *Automated exposure control *Adjustment of mA and/or kV according to patient size (this includes techniques or standardized protocols for targeted exams where dose is matched to indication/reason for exam; i.e. extremities or head) *Use of iterative reconstruction technique DLP: 1909 mGy-cm FINDINGS: LUNG BASES: The visualized lung bases are unremarkable. LIVER, GALLBLADDER, AND BILIARY TREE: The liver is normal in size, shape, and attenuation. No focal hepatic lesion or biliary ductal dilatation is present. The gallbladder is unremarkable with no evidence of radiopaque gallstones, gallbladder wall thickening, or obvious pericholecystic inflammatory changes. PANCREAS: Unremarkable. SPLEEN: Unremarkable. ADRENAL GLANDS: Unremarkable. KIDNEYS AND URETERS: The kidneys are normal in size, shape, and attenuation. No hydronephrosis, hydroureter, or calculi seen. No perinephric stranding. BLADDER: Unremarkable. GASTROINTESTINAL TRACT: The stomach is unremarkable. Normal caliber small bowel. No obstruction. Normal appendix. No colonic wall thickening or inflammation. No significant colonic diverticulosis. No free air or free fluid. ABDOMINAL WALL: No significant hernia is appreciated. LYMPH NODES: Normal. VASCULAR: Unremarkable. PELVIC VISCERA: The prostate and seminal vesicles are unremarkable. OSSEOUS STRUCTURES: No acute or suspicious osseous abnormality. Degenerative changes throughout the spine. CT/CT abdomen pelvis wo IV con IMPRESSION: No acute findings in the abdomen or pelvis. No inflammatory changes. Fleischner guidelines were followed.
[2022-10-01 00:15] VITALS: BP 130/77; PULSE 65; RESP 18; TEMP 36.6; O2SAT 96; BMI 63.4
[2022-10-01 01:09] LABS: MANUAL DIFF FLAG NO
[2022-10-01 01:11] LABS: Basophils Percent Auto 0.3 % (0-2); Eosinophils Percent Auto 0.1 % (0-4); Hematocrit 43.2 % (42.0-52.0); Hemoglobin 14.1 g/dl (14.0-18.0); Imm Gran Abs Auto 0.03 X10*3/uL (0.00-0.03); Imm Gran Pct Auto 0.3 % (0.0-0.4); Lymphocytes Absolute Auto 1.5 X10*3/uL (1.2-4.9); Lymphocytes Percent Auto 12.8 % (20-40); Mean Corpuscular HGB Conc 32.6 g/dl (31.0-36.0); Mean Corpuscular Hemoglobin 28.3 pg (27.0-33.0); Mean Corpuscular Volume 86.6 fL (80.0-98.0); Mean Platelet Volume 9.9 fL (9.4-12.4); Monocytes Absolute Auto 0.4 X10*3/uL (0.1-1.2); Monocytes Percent Auto 3.3 % (2-11); Neutrophils Absolute Auto 9.8 x10*3/uL (2.0-8.3); Neutrophils Percent Auto 83.2 % (45-73); Platelet Count 343 X10*3/uL (160-400); Red Blood Count 4.99 X10*6/uL (4.60-5.80); Red Cell Distribution Width 13.6 % (11.0-16.0); White Blood Count 11.8 X10*3/uL (4.8-10.8)
[2022-10-01 01:12] LABS: Appearance Urine Clear; Color Urine Yellow; Glucose Urine UA Negative (Negative); Leukocyte Esterase Urine Negative (Negative); Nitrite Urine Negative (Negative); PH 6.5 (5.0-9.0); Urine Blood Negative (Negative); Urine Ketones Negative (Negative); Urine Protein Negative (Neg-Trace)
--- NOTE | 2022-10-01 01:23 | ED_ITS ---
HPI - Abdominal Pain General Chief Complaint: Abdominal Pain Stated Complaint: Abdominal pain Time Seen by Provider: 10/01/22 01:23 Source: patient Mode of arrival: ambulatory Limitations: no limitations History of Present Illness HPI narrative: pt. complaining of left lower quadrant pain for last 4-5 days with nausea no vomiting no diarrhea no fever no urinary symptoms no history of kidney stone patient feel bloated no increase in pain on ambulation or after eating food patient slightly constipated for last 3days no fever or chills Related Data Home Medications Medication Instructions Recorded Confirmed acetaminophen 650 mg 1,300 mg PO Q12H 11/28/21 05/06/22 tablet,extended release (Tylenol Arthritis Pain) amlodipine 10 mg tablet (Norvasc) 10 mg PO DAILY 05/06/22 05/06/22 Previous Rx's Medication Instructions Recorded amlodipine 10 mg tablet 10 mg PO DAILY 90 days #90 tabs 12/22/21 chlorthalidone 25 mg tablet 25 mg PO DAILY 90 days #90 tabs 12/22/21 irbesartan 300 mg tablet 300 mg PO DAILY 90 days #90 tabs 12/22/21 cyclobenzaprine 10 mg tablet 10 mg PO BEDTIME #14 tabs 04/26/22 aspirin 81 mg tablet,delayed 81 mg PO DAILY 90 days #90 tabs 05/08/22 release (Adult Low Dose Aspirin) ibuprofen 800 mg tablet 800 mg PO Q8H 30 days #30 tabs 09/03/22 dicyclomine 20 mg tablet 20 mg PO TID PRN abdominal pain 10/01/22 #20 tabs Allergies Allergy/AdvReac Type Severity Reaction Status Date / Time oxycodone Allergy rash Verified 10/01/22 00:20 shellfish derived Allergy Anaphylaxis Verified 10/01/22 00:20 Review of Systems Review of Systems Yes all other systems are reviewed and are negative PMFSH Past Medical History Medical History COVID-19 Essential hypertension Foot callus Long-term use of aspirin therapy Morbid obesity with BMI of 50.0-59.9, adult ANKUSH (obstructive sleep apnea) Polyarthralgia Right knee pain Strabismus Uncontrolled hypertension Surgical History History of carpal tunnel surgery of right wrist History of tooth extraction Family History Family History Mother No problems noted. Father No problems noted. Sister No problems noted. Sister No problems noted. Sister Diabetes Hypertension Social History Social History Housing: Apartment Alcohol intake: current Alcohol intake frequency: holidays/special occasions only Alcohol type: beer, wine and hard liquor Patient Tobacco Use Status: Former Tobacco user Tobacco use type: Cigarette Cigarettes Per Day: 2 Years Smoked: 25 +/- e-Cigarette/Vaping Use: Never Used Second Hand Smoke Exposure: Yes Advance Directives: No Advance Directives Information Provided: Yes service: No Current occupational status: unemployed Cognitive needs: No Hearing needs: No Vision needs: No Physical Exam ED Vital Signs: Vital Signs - 24 hr 10/01/22 00:15 10/01/22 02:14 Temperature 97.9 F 98.0 F Pulse Rate 65 68 Respiratory Rate 18 22 H Blood Pressure 130/77 111/55 L Pulse Oximetry 96 95 Oxygen Delivery Method Room Air Room Air BMI result Body Mass Index 63.4 Appearance: Alert. Oriented X3. No acute distress. Obese Eyes: No pallor or icterus ENT: Pharynx normal. Oral Mucosa moist Neck: Normal inspection. Neck supple. CVS: Normal heart rate and rhythm. Pulses normal. Respiratory: No respiratory distress. Equal air entry bilateral, no wheezing/rales/rhonchi Abdomen: Soft , deep tenderness left lower quadrant no rebound tenderness or guarding. Bowel sounds are present, no mass palpable, no CVA tenderness Skin: Skin warm and dry. Normal skin color. Normal skin turgor. Extremities: No lower extremity edema. No calf tenderness Neuro: Oriented X 3. No motor deficit. Medical Decision Making Medical Decision Making [facility] Narrative: Patient nonspecific left-sided pain will do CT scan to rule out diverticulitis CT scan negative for any acute pathology will discharge patient home on Bentyl Differential Diagnosis Differential Diagnoses: The differential diagnosis associated with the presentation includes Diverticulitis/kidney stone/UTI/constipation Lab Data [facility] Lab Attestation statement: I reviewed the patient's lab results. 10/01/22 01:05 10/01/22 01:05 Labs: Lab Results 10/01/22 10/01/22 10/01/22 Range/Units 01:05 01:05 01:05 WBC 11.8 H (4.8-10.8) X10*3/uL RBC 4.99 (4.60-5.80) X10*6/uL Hgb 14.1 (14.0-18.0) g/dl Hct 43.2 (42.0-52.0) % MCV 86.6 (80.0-98.0) fL MCH 28.3 (27.0-33.0) pg MCHC 32.6 (31.0-36.0) g/dl RDW 13.6 (11.0-16.0) % Plt Count 343 (160-400) X10*3/uL MPV 9.9 (9.4-12.4) fL Immature Gran % (Auto) 0.3 (0.0-0.4) % Neut % (Auto) 83.2 H (45-73) % Lymph % (Auto) 12.8 L (20-40) % [place] % (Auto) 3.3 (2-11) % Eos % (Auto) 0.1 (0-4) % Baso % (Auto) 0.3 (0-2) % Lymph # (Auto) 1.5 (1.2-4.9) X10*3/uL [place] # (Auto) 0.4 (0.1-1.2) X10*3/uL Eos # (Auto) 0.0 (0.0-0.4) X10*3/uL Baso # (Auto) 0.0 (0.0-0.2) X10*3/uL Abs Immat Gran (auto) 0.03 (0.00-0.03) X10*3/uL Absolute Neuts (auto) 9.8 H (2.0-8.3) x10*3/uL Absolute Nucleated RBC 0.000 (0.0-0.012) X10*3/uL Nucleated RBC % (auto) 0.0 (0.0-0.2) /100WBC Sodium 140 (135-145) mmol/L Potassium 3.6 (3.3-5.1) mmol/L Chloride 103 (96-108) mmol/L Carbon Dioxide 30 H (22-29) mmol/L Anion Gap 11 L (12-20) BUN 16 (9-16) mg/dL Creatinine 0.86 (0.5-1.4) mg/dL Estim Creat Clear Calc 182.8 Estimated GFR > 60 Random Glucose 132 H (60-115) mg/dL Calcium 9.6 (8.4-10.2) mg/dL Total Bilirubin 0.3 (0.0-1.0) mg/dL Direct Bilirubin 0.1 (0.0-0.5) mg/dL AST 23 (5-37) U/L ALT 39 (0-40) U/L Alkaline Phosphatase 79 (39-117) U/L Total Protein 7.8 (6.5-8.0) g/dL Albumin 3.9 (3.5-5.0) g/dL Lipase 25 (8-78) U/L Urine Color Yellow Urine Appearance Clear Urine pH 6.5 (5.0-9.0) Ur Specific [place] 1.020 (1.005-1.025) Urine Protein Negative (Neg-Trace) mg/dL Urine Glucose (UA) Negative (Negative) mg/dL Urine Ketones Negative (Negative) mg/dL Urine Blood Negative (Negative) Urine Nitrite Negative (Negative) Ur Leukocyte Esterase Negative (Negative) Discharge Plan Discharge Clinical Impression: Abdominal pain Patient Disposition: Home, Self-Care Instructions: Abdominal Pain (ED) Additional Instructions: Your CT scan is negative for acute pathology Take medication as prescribed and follow with PCP if not better Prescriptions: New dicyclomine 20 mg tablet 20 mg PO TID PRN (Reason: abdominal pain) Qty: 20 0RF No Action chlorthalidone 25 mg tablet 25 mg PO DAILY 90 Days Qty: 90 3RF irbesartan 300 mg tablet 300 mg PO DAILY 90 Days Qty: 90 3RF amlodipine 10 mg tablet 10 mg PO DAILY 90 Days Qty: 90 3RF cyclobenzaprine 10 mg tablet 10 mg PO BEDTIME Qty: 14 0RF aspirin [Adult Low Dose Aspirin] 81 mg tablet,delayed release (DR/EC) 81 mg PO DAILY 90 Days Qty: 90 1RF ibuprofen 800 mg tablet 800 mg PO Q8H 30 Days Qty: 30 0RF acetaminophen [Tylenol Arthritis Pain] 650 mg tablet extended release 1,300 mg PO Q12H amlodipine [Norvasc] 10 mg tablet 10 mg PO DAILY
[2022-10-01 01:27] LABS: Alanine Aminotransferase 39 U/L (0-40); Albumin Level 3.9 g/dL (3.5-5.0); Alkaline Phosphatase 79 U/L (39-117); Anion Gap 11 (12-20); Aspartate Amino Transferase 23 U/L (5-37); Bilirubin Direct 0.1 mg/dL (0.0-0.5); Bilirubin Total 0.3 mg/dL (0.0-1.0); Blood Urea Nitrogen 16 mg/dL (9-16); Calcium 9.6 mg/dL (8.4-10.2); Carbon Dioxide 30 mmol/L (22-29); Chloride 103 mmol/L (96-108); Creatinine Clr Calc Pharmacy 182.8; Estimated Glomerular Filt Rate > 60; Glucose Random 132 mg/dL (60-115); Lipase 25 U/L (8-78); Potassium 3.6 mmol/L (3.3-5.1); Sodium 140 mmol/L (135-145); Total Protein 7.8 g/dL (6.5-8.0)
[2022-10-01 02:14] VITALS: BP 111/55; PULSE 68; RESP 22; TEMP 36.7; O2SAT 95
[2022-10-01] MEDS: Dicyclomine HCl 10 MG CAPSULE 20 MG PO (02:40)
--- NOTE | 2022-10-01 02:59 | PC.NURSE ---
PT PARTNER AT BEDSIDE AT DISCHARGE. PT MEDICATED ACCORDING TO MAR. PT PROVIDED WITH DISCHARGE PACKET. PT VERBALIZED UNDERSTANDING OF DISCHARGE PLAN
== END 2022-10-01 03:00 | disposition home or self-care (01) ==
PROVIDERS: Emergency Provider Internal Medicine
DX: R10.32 Left lower quadrant pain (principal); I10 Essential (primary) hypertension; E66.01 Morbid (severe) obesity due to excess calories; Z68.44 Body mass index [BMI] 60.0-69.9, adult; Z79.82 Long term (current) use of aspirin
CPT/HCPCS: 36415; 74176; 80048; 80076; 81003; 83690; 85025; 99284

== ENCOUNTER 2023-02-20 11:27 | Outpatient (AMB) | payer OTHER, SELFPAY ==
--- NOTE | 2023-02-20 11:43 | MHC.PC.OV ---
Vital Signs 02/20/23 11:45 Height 5 ft 8 in Weight 418 lb 6.998 oz BMI 63.6 BP 132/72 Blood Pressure Location Lt brachial Position Sitting Pulse 78 Pulse Source Pulse Oximeter Pulse Oximetry (%) 98 Oxygen Delivery Method Room Air Intake Visit Reasons: physical Intake Note: Patient is here today for a physical. Complaint of left side flank pain and blood in stool. Substation Mechanic Required: No Inspector Assemblies And Installations: Not Required per policy Accompanied by: Self / Same As Patient Allergies oxycodone Allergy (Verified 02/20/23 12:28) rash shellfish derived Allergy (Verified 02/20/23 12:28) Anaphylaxis Tobacco use date assessed: 02/20/23 Dental Screening Dental Screen Date: 02/20/23 Did you have a dental visit in the last 12 months?: No Did you have a dental problem in the last 6 months where you did not have access to dental care?: No Was dental information given to patient?: Patient has dentist HPI physical HPI Details 42-year-old male presents to the office requesting an annual physical. He is complaining of abdominal pain mostly on the left side. Has been to 2 separate emergency rooms and had CT scans done. In the last office visit, he was getting scheduled to see the bariatric surgeon but due to medical insurance issues he has not proceeded with it. No nausea or vomiting. On 2 or 3 occasions, patient has noticed red blood streaking with his stool. The stool is hard. PENDING SALE TO [facility] Medical History COVID-19 Essential hypertension Foot callus Long-term use of aspirin therapy Morbid obesity with BMI of 50.0-59.9, adult ANKUSH (obstructive sleep apnea) Polyarthralgia Right knee pain Strabismus Uncontrolled hypertension Surgical History History of tooth extraction History of carpal tunnel surgery of right wrist Family History Mother No problems noted. Father No problems noted. Sister No problems noted. Sister No problems noted. Sister Diabetes Hypertension Social History Housing: Apartment Alcohol intake: current Alcohol intake frequency: holidays/special occasions only Alcohol type: beer, wine and hard liquor Patient Tobacco Use Status: Former Tobacco user Tobacco use type: Cigarette Cigarettes Per Day: 2 Years Smoked: 25 +/- e-Cigarette/Vaping Use: Never Used Second Hand Smoke Exposure: Yes service: No Current occupational status: unemployed Cognitive needs: No Hearing needs: No Vision needs: No Questionnaire PHQ-9 Over the last 2 weeks, how often have you been bothered by any of the following problems? 1. Little interest or pleasure in doing things: not at all 2. Feeling down, depressed, or hopeless: not at all 3. Trouble falling or staying asleep, or sleeping too much: not at all 4. Feeling tired or having little energy: not at all 5. Poor appetite or overeating: not at all 6. Feeling bad about yourself - or that you are a failure or have let yourself or your family down: not at all 7. Trouble concentrating on things, such as reading the newspaper or watching television: not at all 8. Moving or speaking so slowly that other people could have noticed. Or the opposite - being so fidgety or restless that you have been moving around a lot more than usual: not at all 9. Thoughts that you would be better off or of hurting yourself in some way: not at all Total score: 0 Depression Screening Interpretation: Negative Depression Screening Done: Yes Source: Developed by Drs. Dimitris Tse, Juli Washington, Carroll Jacobo and colleagues, with an educational bianka from [employer]. Thrive Questionnaire Date Thrive assessed: 02/20/23 I am a: Patient What is your living situation today?: I have a steady place to live Within the past 12 months, did the food you bought not last and you didn't have the money to get more?: Never true Within the past 12 months, did you worry whether your food would run out before you got money to buy more?: Never true Do you have trouble paying for medicines?: No Do you have trouble getting transportation to medical appointments?: No Do you have trouble paying your heating and electricity bill?: No Do you have trouble taking care of your child, family member or friend?: No Do you have trouble with day-to-day activities such as bathing, preparing meals, shopping, managing finances, etc.?: No Are you currently unemployed and looking for a job?: No Are you interested in more education?: No Currently or been in a relationship where the following occur: no concerns reported AUDIT C Alcohol Use Questionnaire (AUDIT-C) 1. How often do you have a drink containing alcohol?: Monthly or less 2. How many drinks containing alcohol do you have on a typical day when you are drinking?: 1 or 2 Total Score: 1 GILBERT-7 AMB Questionnaire GILBERT-7 Date GILBERT - 7 assessed: 02/20/23 Feeling nervous, anxious, or on edge: 1 = Several days Not being able to stop or control worryin = Not at all Worrying too much about different things: 0 = Not at all Trouble relaxin = Not at all Being so restless that it is hard to sit still: 0 = Not at all Becoming easily annoyed or irritable: 0 = Not at all Feeling afraid as if something awful might happen: 0 = Not at all Total GILBERT-7 score (0-4 normal; 5-9 mild; 10-14 moderate; 15-21 severe): 1 Source: Developed by Drs. Dimitris Tse, Juli Washington, Carroll Jacobo and colleagues, with an educational bianka from [employer]. Physical exam (Primary Care) Vital Signs: Last Vital Signs Pulse 78 02/20/23 11:45 BP 132/72 02/20/23 11:45 Pulse Ox 98 02/20/23 11:45 Oxygen Delivery Method Room Air 02/20/23 11:45 BMI result Body Mass Index 63.6 Tobacco/Smoking Status: Tobacco use Status Tobacco use date assessed 02/20/23 02/20/23 11:56 Patient Tobacco Use Status Former Tobacco user 02/20/23 11:56 Tobacco use type Cigarette 02/20/23 11:56 e-Cigarette/Vaping Use Never Used 02/20/23 11:56 PHQ-9: PHQ-9 Score PHQ-9: Total score 0 02/20/23 11:56 Depression Screening Interpretation: Negative Thrive Assessment: Date of Thrive Assessment Date Thrive assessed 02/20/23 02/20/23 11:56 Currently or been in a relationship where the following occur: no concerns reported Const Other: Extremely obese male in no acute distress. General: cooperative and healthy appearing Nutritional Appearance: well nourished Orientation/consciousness: patient oriented x3 Limitations: no limitations HENMT Head: Yes normal to inspection Eyes General: appearance normal, both eyes and all related structures Neck Neck: Yes normal visual inspection Chest Chest palpation & inspection: normal palpation of entire chest wall Resp Effort & Inspection: normal respiratory effort Neuro General: patient oriented x3 Assessment and Plan Assessment & Plan (1) Abdominal pain: Code(s): R10.9 - Unspecified abdominal pain Plan: Could be due to reflux. ED visit reviewed. CT scan images from the hospital reviewed. 20 minutes spent in reviewing these results. Ppi has been started. Labs have been ordered. Coding Level of Care Code Est Pt Level 4 (71823) Diagnoses Abdominal pain R10.9
[2023-02-20 11:45] VITALS: BP 132/72; PULSE 78; O2SAT 98; BMI 63.6
== END 2023-02-20 12:13 | disposition home or self-care (01) ==
PROVIDERS: PCP Internal Medicine; Visit Provider Internal Medicine
DX: R10.9 Unspecified abdominal pain (principal)
CPT/HCPCS: 99214

== ENCOUNTER 2023-02-20 12:44 | Outpatient (REF) | payer OTHER, SELFPAY ==
--- NOTE | ~2023-02-20 | XR_ITS ---
EXAMINATION: XR CHEST CLINICAL INFORMATION: Morbid obesity, preoperative evaluation COMPARISON: Chest x-ray on 04/03/2021 TECHNIQUE: 2 views of the chest were obtained. FINDINGS: vascularity. LUNGS: Lungs are clear. No pneumothorax is seen. BONES: Bony skeleton is intact. XR/XR chest 2V IMPRESSION: Unchanged Normal chest x-ray.
[2023-02-20 15:02] LABS: Alanine Aminotransferase 57 U/L (0-40); Albumin Level 3.9 g/dL (3.5-5.0); Alkaline Phosphatase 71 U/L (39-117); Anion Gap 12 (12-20); Aspartate Amino Transferase 34 U/L (5-37); Bilirubin Direct 0.1 mg/dL (0.0-0.5); Bilirubin Total 0.3 mg/dL (0.0-1.0); Blood Urea Nitrogen 14 mg/dL (9-16); Calcium 9.5 mg/dL (8.4-10.2); Carbon Dioxide 32 mmol/L (22-29); Chloride 104 mmol/L (96-108); Cholesterol 174 mg/dL (<200); Estimated Glomerular Filt Rate > 60; Glucose Random 94 mg/dL (60-115); HDL Cholesterol 47 mg/dL (>40); LDL Cholesterol Calculated 118 mg/dL (<100); Potassium 3.8 mmol/L (3.3-5.1); Sodium 144 mmol/L (135-145); Total Protein 7.6 g/dL (6.5-8.0); Triglycerides 47 mg/dL (<150)
[2023-02-20 15:08] LABS: Thyroid Stimulating Hormone 0.99 uIU/mL (0.32-4.0)
== END 2023-02-20 12:45 | disposition home or self-care (01) ==
LOC: HO.XRAY 12:44
PROVIDERS: Absent Provider Physician Assistant Surgical; PCP Internal Medicine; Visit Provider Internal Medicine
DX: E66.01 Morbid (severe) obesity due to excess calories (principal); Z68.43 Body mass index [BMI] 50.0-59.9, adult; M25.50 Pain in unspecified joint; I10 Essential (primary) hypertension; E50.9 Vitamin A deficiency, unspecified; E55.9 Vitamin D deficiency, unspecified
CPT/HCPCS: 36415; 71046; 80048; 80061; 80076; 84443; 85027

== ENCOUNTER 2023-03-03 15:37 | Outpatient (AMB) | payer OTHER, SELFPAY ==
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
[2023-03-03 15:50] VITALS: BP 150/74; PULSE 74; O2SAT 96; BMI 64.0
== END 2023-03-03 17:02 | disposition home or self-care (01) ==
LOC: HO.HMGH 15:37
PROVIDERS: PCP Internal Medicine; Visit Provider Internal Medicine
DX: S40.019A Contusion of unspecified shoulder, initial encounter (principal)
CPT/HCPCS: 99213

== ENCOUNTER 2023-03-06 08:08 | Outpatient (AMB) | payer OTHER, SELFPAY ==
--- NOTE | 2023-03-06 08:10 | A.OFFVIS_ITS ---
Intake Vital Signs 03/06/23 08:11 Height 5 ft 8 in Weight 428 lb 2.203 oz BMI 65.1 BP 116/70 Blood Pressure Location Rt radial Position Sitting Pulse 81 Pulse Source Pulse Oximeter Intake Visit Reasons: A lot of pain Intake Note: C/O pain on the right and left elbow and right ankle. Patient reports pain on the fingers when he wakes up, he states he has to stretch and warm up his fingers. Machine Puller Required: Yes Machine Puller Language: Analytical Chemist Name: Ángel [id number] Information Interpreted: non-clinical & clinical Accompanied by: Spouse Allergies oxycodone Allergy (Verified 03/06/23 08:16) rash shellfish derived Allergy (Verified 03/06/23 08:16) Anaphylaxis Medication List - Last Reconciled 03/06/23 by Cecil Borja MD acetaminophen ER (Tylenol Arthritis Pain) 1,300 mg PO Q12H amlodipine 10 mg PO DAILY 90 days aspirin (Adult Low Dose Aspirin) 81 mg PO DAILY 90 days chlorthalidone 25 mg PO DAILY 90 days cyclobenzaprine 10 mg PO BEDTIME irbesartan 300 mg PO DAILY 90 days meloxicam 15 mg PO DAILY HPI HPI Comments History of Present Illness Details The patient returns for evaluation complaining of multiple areas of pain. He states that last visit here received a steroid injection for right golfer's elbow. States that it lasted for about 1 year. States that now he is having pain in his right elbow, in the same area. He also has pain in both shoulders. Feels that his shoulders are stiff and take a while for his shoulders to improve. States that he continues to have pain in his right Achilles tendon. States that he was evaluated by a specialist and was told that an injection can be done but there is risk of rupture Most recent history by Dr. Wall 11/2021: The patient returns for evaluation of his multiple areas of pain. This includes for the most part the right shoulder, lower back, right elbow, and right Achilles tendon. He takes p.r.n. ibuprofen 800 mg and that seems to help to some degree. The shoulder isn't all that bothersome to him but the elbow continues to hurt when he uses the right arm. No swelling is noted. The pain mostly is now at this point se ems over the medial aspect of the elbow. The right Achilles hurts with weight- bearing activity. He does not recall any previous injury to this area. He apparently does have a podiatry visit in the next week or 2. The low back pain is intermittently painful. He is having trouble finding work due to his pains. He also add acetaminophen to his ibuprofen at times which is helpful. [facility] Medical History Morbid obesity with BMI of 50.0-59.9, adult Foot callus Polyarthralgia Uncontrolled hypertension Strabismus COVID-19 Right knee pain ANKUSH (obstructive sleep apnea) Long-term use of aspirin therapy Essential hypertension Surgical History History of tooth extraction History of carpal tunnel surgery of right wrist Family History Mother No problems noted. Father No problems noted. Sister No problems noted. Sister No problems noted. Sister Diabetes Hypertension Social History Housing: Apartment Alcohol intake: current Alcohol intake frequency: holidays/special occasions only Alcohol type: beer, wine and hard liquor Patient Tobacco Use Status: Former Tobacco user Tobacco use type: Cigarette Cigarettes Per Day: 2 Years Smoked: 25 +/- e-Cigarette/Vaping Use: Never Used Second Hand Smoke Exposure: Yes service: No Current occupational status: unemployed Cognitive needs: No Hearing needs: No Vision needs: No Review of Systems Musc Reports arthralgias and Reports stiffness Physical Exam Vital Signs: Last Vital Signs Pulse 81 03/06/23 08:11 BP 116/70 03/06/23 08:11 BMI result Body Mass Index 65.1 Const General: cooperative, healthy appearing and comfortable Nutritional Appearance: obese morbidly obese Orientation/consciousness: patient oriented x3 Limitations: no limitations HEENT Head: Yes normocephalic and Yes atraumatic Resp Effort & Inspection: normal respiratory effort and able to speak in complete sentences Neuro General: patient oriented x3 Extrem Other: Minimal tenderness at the common flexor origin at the lateral epicondyle. Significant tenderness at the common flexor origin at the right medial epicondyle with positive resisted wrist flexion test Bilateral limited shoulder abduction Bilateral positive empty can test Tenderness upon palpation of right Achilles tendon Assessment & Plan Assessment & Plan (1) Medial epicondylitis, right elbow: Code(s): M77.01 - Medial epicondylitis, right elbow Plan: Was injected by Dr. Wall 11/2021 with good relief for about 1 year. Now having recurrent symptoms. Will refer patient to occupational therapy. If patient does not improve, I advised him to call our office and we will consider an injection (2) Tendinitis of right rotator cuff: Code(s): M75.81 - Other shoulder lesions, right shoulder Plan: Start PT for bilateral rotator cuff tendinopathy Plan I spent 25 minutes reviewing patient's chart, evaluating patient, placing orders, counseling patient and documenting in the chart Orders: Orders PT Evaluation and Treatment Today M12.812 - Other specific arthropathies, not elsewhere classified, left shoulder, M75.81 - Other shoulder lesions, right shoulder OT Evaluation and Treatment Today M77.01 - Medial epicondylitis, right elbow Coding Level of Care Code Est Pt Level 4 (60900) Diagnoses Medial epicondylitis, right elbow M77.01 Tendinitis of right rotator cuff M75.81
[2023-03-06 08:11] VITALS: BP 116/70; PULSE 81; BMI 65.1
== END 2023-03-06 08:44 | disposition home or self-care (01) ==
PROVIDERS: PCP Internal Medicine; Visit Provider Student in an Organized Health Care Education/Training Program
DX: M77.01 Medial epicondylitis, right elbow (principal); M75.81 Other shoulder lesions, right shoulder
CPT/HCPCS: 99214

== ENCOUNTER → 2023-03-06 08:08 | Outpatient (BNVA) | payer OTHER, SELFPAY | PROVIDERS: PCP Internal Medicine; Visit Provider Student in an Organized Health Care Education/Training Program | DX: M77.01 Medial epicondylitis, right elbow (principal); M75.81 Other shoulder lesions, right shoulder | CPT/HCPCS: 99212 ==

== ENCOUNTER 2023-03-11 14:36 | Outpatient (AMB) | payer OTHER, SELFPAY ==
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
[2023-03-11 14:39] VITALS: BP 110/60; PULSE 88; O2SAT 97; BMI 65.4
== END 2023-03-11 15:50 | disposition home or self-care (01) ==
PROVIDERS: PCP Internal Medicine; Visit Provider Internal Medicine
DX: M25.512 Pain in left shoulder (principal); V49.40XA Driver injured in collision with unspecified motor vehicles in traffic accident, initial encounter; Z04.3 Encounter for examination and observation following other accident
CPT/HCPCS: 99213

== ENCOUNTER 2023-03-17 06:15 | Outpatient (REF) | payer OTHER, SELFPAY ==
--- NOTE | ~2023-03-17 | XR_ITS ---
EXAMINATION: XR SHOULDER, LEFT CLINICAL INFORMATION: Pain and unspecified shoulder COMPARISON: None available. TECHNIQUE: 3 views of the left shoulder. FINDINGS: Moderate degenerative changes in the acromioclavicular joint with joint space narrowing and hypertrophic change. Small soft tissue calcification lateral to the humeral head suggestive of rotator cuff pathology. Mild degenerative changes with hypertrophic change along the glenoid. XR/XR shoulder LT min 2V IMPRESSION: 1. Moderate degenerative changes acromioclavicular joint. 2. Small soft tissue calcification lateral to the humeral head suggestive of rotator cuff pathology.
== END 2023-03-17 06:16 | disposition home or self-care (01) ==
LOC: HO.HOSX 06:15
PROVIDERS: Visit Provider Physician Assistant
DX: S40.012A Contusion of left shoulder, initial encounter (principal); M25.512 Pain in left shoulder; V89.2XXA Person injured in unspecified motor-vehicle accident, traffic, initial encounter; Y93.9 Activity, unspecified; Y92.9 Unspecified place or not applicable; Y99.9 Unspecified external cause status
CPT/HCPCS: 73030

== ENCOUNTER 2023-03-17 08:03 | Outpatient (AMB) | payer OTHER, SELFPAY ==
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
[2023-03-17 08:22] VITALS: BMI 65.4
== END 2023-03-17 08:56 | disposition home or self-care (01) ==
PROVIDERS: PCP Internal Medicine; Visit Provider Physician Assistant
DX: S40.012A Contusion of left shoulder, initial encounter (principal)
CPT/HCPCS: 99213

== ENCOUNTER 2023-03-20 08:48 | Outpatient (AMB) | payer OTHER, SELFPAY ==
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
[2023-03-20 09:02] VITALS: BP 132/68; PULSE 58; O2SAT 98; BMI 65.2
== END 2023-03-20 09:36 | disposition home or self-care (01) ==
PROVIDERS: PCP Internal Medicine; Visit Provider Internal Medicine
DX: R10.32 Left lower quadrant pain (principal); S40.012A Contusion of left shoulder, initial encounter
CPT/HCPCS: 99214

== ENCOUNTER 2023-03-31 09:22 | Outpatient (AMB) | payer OTHER, SELFPAY ==
--- NOTE | 2023-03-31 09:24 | MHC.OFFVIS ---
Intake Vital Signs 03/31/23 09:25 Height 5 ft 8 in Weight 425 lb 7.874 oz BMI 64.7 BP 130/70 Blood Pressure Location Lt brachial Position Sitting Pulse 74 Intake Visit Reasons: 1 year fu Intake Note: 1 year follow up w/ EKG Heart Nurse Required: No Accompanied by: Self / Same As Patient Allergies oxycodone Allergy (Verified 03/31/23 09:25) rash shellfish derived Allergy (Verified 03/31/23 09:25) Anaphylaxis Medication List - Last Reconciled 03/31/23 by Cecilio Graham MD acetaminophen ER (Tylenol Arthritis Pain) 1,300 mg PO Q12H amlodipine 10 mg PO DAILY 90 days aspirin (Adult Low Dose Aspirin) 81 mg PO DAILY 90 days chlorthalidone 25 mg PO DAILY 90 days hydrocortisone acetate (Anusol-HC) 25 mg LA BEDTIME hydrocortisone acetate (Anusol-HC) 25 mg LA BEDTIME irbesartan 300 mg PO DAILY 90 days pantoprazole 40 mg PO DAILY HPI HPI Comments History of Present Illness Details Tavares returns for follow-up. In the past, he was seen regarding hypertension. Morbidly obese. Weighs more than 400 lb. Overall, he states he is feeling fine. No cardiac symptoms like chest pain. He was referred to bariatric but does not look like he is regularly following up there. Otherwise, no cardiac concerns at this time. [facility] Medical History Morbid obesity with BMI of 50.0-59.9, adult Foot callus Polyarthralgia Uncontrolled hypertension Strabismus COVID-19 Right knee pain ANKUSH (obstructive sleep apnea) Long-term use of aspirin therapy Essential hypertension Surgical History History of tooth extraction History of carpal tunnel surgery of right wrist Family History Mother No problems noted. Father No problems noted. Sister No problems noted. Sister No problems noted. Sister Diabetes Hypertension Social History Housing: Apartment Alcohol intake: current Alcohol intake frequency: holidays/special occasions only Alcohol type: beer, wine and hard liquor Patient Tobacco Use Status: Former Tobacco user Tobacco use type: Cigarette Cigarettes Per Day: 2 Years Smoked: 25 +/- e-Cigarette/Vaping Use: Never Used Second Hand Smoke Exposure: Yes service: No Current occupational status: unemployed Cognitive needs: No Hearing needs: No Vision needs: No Review of Systems Const Denies weakness ENT Denies dizziness Card Denies chest pain, Denies chest pain with activity, Denies syncope, Denies rapid heart rate, Denies pedal edema, Denies edema, Denies leg edema, Denies lightheadedness, Denies dyspnea on exertion and Denies orthopnea Resp Denies cough and Denies dyspnea on exertion GI Denies hematochezia and Denies change in stool character Musc Denies abnormal gait, Denies muscle cramps, Denies muscle weakness, Denies numbness, Denies radiating pain into limb and Denies tingling Neuro Denies abnormal gait, Denies dizziness, Denies syncope, Denies numbness, Denies tingling and Denies weakness Physical Exam Vital Signs: Last Vital Signs Pulse 74 03/31/23 09:25 BP 130/70 03/31/23 09:25 BMI result Body Mass Index 64.7 Const General: comfortable and no acute distress Orientation/consciousness: patient oriented x3 HEENT Other: Unremarkable Head: Yes normal to inspection Neck Neck: Yes normal visual inspection Chest Chest palpation & inspection: normal inspection of the chest Resp Auscultation: clear to auscultation bilaterally Cardio Palpation: normal PMI Heart sounds: S1 normal heart sound present, S2 normal heart sound present, no gallops, no murmurs and no rubs GI Palpation (GI): Soft to palpation Back/Spine/Pelvis Other: unremarkable Skin General skin exam: no rashes or lesions noted Neuro General: patient oriented x3 Extrem General: Yes normal to inspection Psych Mental Status: mental status grossly normal Office Procedures EKG Details: EKG with sinus rhythm at 74/Min; no significant ST-T changes and otherwise unremarkable. [place] [address]-[id number], Complete Assessment & Plan Assessment & Plan (1) Essential hypertension: Code(s): I10 - Essential (primary) hypertension Plan: Stable. Current list includes amlodipine, chlorthalidone, irbesartan. (2) Morbid obesity: Code(s): E66.01 - Morbid (severe) obesity due to excess calories Plan: Advised to follow-up with bariatric. (3) ANKUSH (obstructive sleep apnea): Comment: Severe degree of sleep apnea. The total AHI was 100/hr with oxygen rosalie was 61%. Code(s): G47.33 - Obstructive sleep apnea (adult) (pediatric) Plan: Continue CPAP use. Coding Level of Care Code Est Pt Level 3 (33121) Diagnoses Essential hypertension I10 Morbid obesity E66.01 ANKUSH (obstructive sleep apnea) G47.33 CPT Codes EKG - CPT: 82112-[id number], Complete ([id number])
[2023-03-31 09:25] VITALS: BP 130/70; PULSE 74; BMI 64.7
== END 2023-03-31 09:40 | disposition home or self-care (01) ==
PROVIDERS: Visit Provider Internal Medicine
DX: I10 Essential (primary) hypertension (principal); E66.01 Morbid (severe) obesity due to excess calories; G47.33 Obstructive sleep apnea (adult) (pediatric)
CPT/HCPCS: 93010; 99213

== ENCOUNTER → 2023-03-31 09:22 | Outpatient (BNVA) | payer OTHER, SELFPAY | PROVIDERS: Visit Provider Internal Medicine | DX: I10 Essential (primary) hypertension (principal); E66.01 Morbid (severe) obesity due to excess calories; Z68.44 Body mass index [BMI] 60.0-69.9, adult; G47.33 Obstructive sleep apnea (adult) (pediatric); Z79.899 Other long term (current) drug therapy; Z99.89 Dependence on other enabling machines and devices | CPT/HCPCS: 93005; 99212 ==

== ENCOUNTER → 2023-04-28 12:39 | Outpatient (BNVA) | payer OTHER, SELFPAY | PROVIDERS: Visit Provider Nurse Practitioner Family ==

== ENCOUNTER 2023-05-06 08:04 | Outpatient (AMB) | payer OTHER, SELFPAY ==
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
[2023-05-06 08:12] VITALS: BMI 64.6
== END 2023-05-06 08:40 | disposition home or self-care (01) ==
PROVIDERS: PCP Internal Medicine; Visit Provider Physician Assistant
DX: S40.012A Contusion of left shoulder, initial encounter (principal)
CPT/HCPCS: 99213

== ENCOUNTER → 2023-05-06 08:04 | Outpatient (BNVA) | payer OTHER, SELFPAY | PROVIDERS: PCP Internal Medicine; Visit Provider Physician Assistant ==

== ENCOUNTER 2023-05-15 08:11 | Outpatient (AMB) | payer OTHER, SELFPAY ==
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
[2023-05-15 08:18] VITALS: BP 135/68; PULSE 78; BMI 64.6
== END 2023-05-15 09:18 | disposition home or self-care (01) ==
PROVIDERS: PCP Internal Medicine; Visit Provider Internal Medicine Gastroenterology
DX: K59.09 Other constipation (principal); R10.32 Left lower quadrant pain; K21.9 Gastro-esophageal reflux disease without esophagitis; K62.5 Hemorrhage of anus and rectum
CPT/HCPCS: 99204

== ENCOUNTER → 2023-05-15 08:11 | Outpatient (BNVA) | payer OTHER, SELFPAY | PROVIDERS: PCP Internal Medicine; Visit Provider Internal Medicine Gastroenterology | DX: K59.09 Other constipation (principal); K21.9 Gastro-esophageal reflux disease without esophagitis; K62.5 Hemorrhage of anus and rectum; R10.32 Left lower quadrant pain | CPT/HCPCS: 99202 ==

== ENCOUNTER 2023-05-19 10:38 | Day surgery (SDC) | payer OTHER, SELFPAY ==
[2023-05-19 11:45] VITALS: BMI 64.8
[2023-05-19 12:11] VITALS: BP 141/83; PULSE 73; RESP 16; TEMP 36.1; O2SAT 98
--- NOTE | 2023-05-19 12:50 | MHC.SHP ---
Pre-Procedural Eval Section A - 24 Hr Update-Section A only Date of Service: 05/19/23 Section B - Complete if H&P > 30 days Chief Complaint: rectal bleeding Relevant Family History (Specify if Yes): No Relevant Social History: None Present Medications: see Short Stay Collaborative assessment Medical History: Significant History (Morbid obesity with BMI of 50.0-59.9, adult Foot callus Polyarthralgia Uncontrolled hypertension Strabismus COVID-19 Right knee pain ANKUSH (obstructive sleep apnea) Long-term use of aspirin therapy Essential hypertension) History of Previous Operations: Relevant previous surgery/procedure and date(s) (History of tooth extraction History of carpal tunnel surgery of right wrist) Allergies: Allergies Allergy/AdvReac Type Severity Reaction Status Date / Time oxycodone Allergy rash Verified 05/19/23 11:56 shellfish derived Allergy Anaphylaxis Verified 05/19/23 11:56 Review of Systems Sugical H&P ROS: Negative: Constitution, Cardiovascular, Respiratory, Neurological, Psychiatric, Hem-Onc, Allergic/Immunologic, Gastrointestinal, Genitourinary, Musculoskeletal, Integumentary, Endocrine and Eyes/Ears/Nose/Throat Exam Surgical H&P Exam: Normal: HEENT, Normal: Heart, Normal: Lungs, Normal: Extremities, Normal: Abdomen, Normal: Skin and Normal: Neurological Exam Comment: morbid obesity Plan Diagnosis/Plan: Unchanged I have reviewed the history and physical and performed a pertinent physical examination on my patient. No changes have occurred unless specified. After discussion with anesthesia will postpone the EGD and get ba swallow and proceed with the colonoscopy--if ba swallow pos then will need to bring back for EGD with GA Time Spent With Patient Time: Total time managing care of this patient today ____ minutes.
--- NOTE | 2023-05-19 12:53 | P.OP_ITS ---
Operative Note Operative Note Date of Service: 05/19/23 Narrative: Operative Information Procedure Description: Colonoscopy Indication: Rectal bleeding Anesthesia: MAC COLONOSCOPY Instrument: Olympus variable stiffness pediatric scope 190L Colonoscopy Monitoring: Vital signs and clinical assessment, continuous EKG monitoring, Pulse oximetry, Carbon Dioxide monitoring and blood pressure monitoring were done throughout the procedure. Colon withdrawal time was 6 minutes. Procedure: The patient was placed in the left lateral decubitis position and pre-procedure medications were administered. After a digital rectal examination of the ano-rectum, the video colonoscope was inserted into the rectum and advanced through the colon to the cecum/TI. The colonoscope was slowly withdrawn in a retrograde panoramic fashion and the colon mucosa was carefully examined including a retroflexed view of the rectum. Findings and interventions are described below. Procedure Difficulty: easy Findings: Terminal Ileum-normal Cecum:normal Ascending Colon: normal Transverse Colon -normal Descending Colon:normal Sigmoid Colon: normal Rectum: Retroflexion with small inflammed internal hemorrhoids seen, grade I Anorectum - normal Intervention: none Colon preparation: [place] Bowel Preparation Scale Right colon; 3 Transverse colon: 3 Left colon; 3 (0 = Unprepared colon segment with mucosa not seen due to solid stool that cannot be cleared. 1 = Portion of mucosa of the colon segment seen, but other areas of the colon segment not well seen due to staining, residual stool and/or opaque liquid. 2 = Minor amount of residual staining, small fragments of stool and/or opaque liquid, but mucosa of colon segment seen well. 3 = Entire mucosa of colon segment seen well with no residual staining, small fragments of stool or opaque liquid) Impression and Post Procedure Diagnosis: internal hemorrhoids Plan: High fiber diet leaflet Avoid straining at stool, epsom salts and sitz bath, anusol supps or cream Repeat Colonoscopy in 10 years or earlier if clinically indicated Ba swallow w/ follow thru Above findings were reviewed with the patient and relevant handouts were provided if indicated.
[2023-05-19 14:09] VITALS: BP 154/104; PULSE 88; RESP 16; TEMP 36.6; O2SAT 100
[2023-05-19 14:24] VITALS: BP 130/73; PULSE 78; RESP 16; TEMP 36.6; O2SAT 98
== END 2023-05-19 15:21 | disposition home or self-care (01) ==
PROVIDERS: PCP Internal Medicine; Visit Provider Internal Medicine Gastroenterology
PROC: (CPT 45378; principal; 2023-05-19 13:20)
DX: K62.5 Hemorrhage of anus and rectum (principal); K64.0 First degree hemorrhoids; R10.32 Left lower quadrant pain; K59.09 Other constipation; K21.9 Gastro-esophageal reflux disease without esophagitis; I10 Essential (primary) hypertension; M25.561 Pain in right knee; G47.33 Obstructive sleep apnea (adult) (pediatric); E66.01 Morbid (severe) obesity due to excess calories; Z68.44 Body mass index [BMI] 60.0-69.9, adult; Z79.1 Long term (current) use of non-steroidal anti-inflammatories (NSAID); Z79.82 Long term (current) use of aspirin; Z79.899 Other long term (current) drug therapy; Z99.89 Dependence on other enabling machines and devices; Z88.5 Allergy status to narcotic agent; Z98.890 Other specified postprocedural states; Z87.891 Personal history of nicotine dependence
CPT/HCPCS: 45378; J2250

== ENCOUNTER → 2023-05-19 10:38 | Outpatient (BNV) | payer OTHER, SELFPAY | PROVIDERS: PCP Internal Medicine; Visit Provider Internal Medicine Gastroenterology | DX: K64.0 First degree hemorrhoids (principal) | CPT/HCPCS: 45378 ==

== ENCOUNTER 2023-05-20 09:07 | Outpatient (AMB) | payer OTHER, SELFPAY ==
--- NOTE | 2023-05-20 09:08 | A.OFFVIS_ITS ---
Intake Vital Signs 05/20/23 09:09 Height 5 ft 8 in Weight 414 lb BMI 62.9 Pulse 80 Pulse Source Pulse Oximeter Pulse Oximetry (%) 98 Oxygen Delivery Method Room Air Intake Visit Reasons: Follow up - CONF w/chic address Intake Note: Patient presents for follow up. Allergies oxycodone Allergy (Verified 05/20/23 09:11) rash shellfish derived Allergy (Verified 05/20/23 09:11) Anaphylaxis HPI HPI Comments History of Present Illness Details 42 y/o male patient presents for follow up of ANKUSH on CPAP. CPAP compliance and therapy response report (01/21/23-04/20/23) reviewed with the patient. Pt is on CPAP at [id number]. The usage days 99% and average usage 6 hours 50 min. Residual AHI was 0.8. Pt report he has received the new mask and sleep better. Pt reports that he is not falling asleep during driving. He wakes up refreshed and his daytime tiredness has improved. He is in processing for gastric bypass. [facility]LY [facility] Medical History Morbid obesity with BMI of 50.0-59.9, adult Foot callus Polyarthralgia Uncontrolled hypertension Strabismus COVID-19 Right knee pain ANKUSH (obstructive sleep apnea) Long-term use of aspirin therapy Essential hypertension Surgical History History of tooth extraction History of carpal tunnel surgery of right wrist Family History Mother No problems noted. Father No problems noted. Sister No problems noted. Sister No problems noted. 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/ Cognitive needs: No Hearing needs: No Vision needs: No Review of Systems Const All systems reviewed & are unremarkable except as noted in HPI and below ENT Reports Normal hearing present Neuro Reports Normal hearing present Physical Exam Vital Signs: Last Vital Signs Pulse 80 05/20/23 09:09 Pulse Ox 98 05/20/23 09:09 Oxygen Delivery Method Room Air 05/20/23 09:09 BMI result Body Mass Index 62.9 Const General: cooperative and no acute distress Nutritional Appearance: obese Orientation/consciousness: patient oriented x3 Limitations: language barrier (Maltese speaking only) HEENT Teeth and gingiva: other (mallampati score 3) Resp Effort & Inspection: normal respiratory effort and able to speak in complete sentences Neuro Other: Right eye strabismus General: patient oriented x3, gait normal, moves all extremities and no focal motor deficits Cranial nerves: Yes Normal facial strength present, Yes Midline tongue present, Yes Normal hearing present and Yes Ability to bilaterally elevate shoulders present Cognition (Neuro): normal cognition Psych Appearance: grossly normal Mental Status: mental status grossly normal Speech and movement: Normal speech and movement present Assessment & Plan Assessment & Plan (1) ANKUSH (obstructive sleep apnea): Comment: Severe degree of sleep apnea. The total AHI was 100/hr with oxygen rosalie was 61%. Code(s): G47.33 - Obstructive sleep apnea (adult) (pediatric) Plan Continue to use CPAP at [id number] as patient experiences good clinical effects. Stressed compliance, nightly and more than 4 hours. Educate patient to clean mask and accessories routinely. Coding Level of Care Code Est Pt Level 3 (49228) Diagnoses ANKUSH (obstructive sleep apnea) G47.33
[2023-05-20 09:09] VITALS: PULSE 80; O2SAT 98; BMI 62.9
== END 2023-05-20 09:22 | disposition home or self-care (01) ==
PROVIDERS: PCP Internal Medicine; Visit Provider Nurse Practitioner Family
DX: G47.33 Obstructive sleep apnea (adult) (pediatric) (principal)
CPT/HCPCS: 99213

== ENCOUNTER → 2023-05-20 09:07 | Outpatient (BNVA) | payer OTHER, SELFPAY | PROVIDERS: PCP Internal Medicine; Visit Provider Nurse Practitioner Family | DX: G47.33 Obstructive sleep apnea (adult) (pediatric) (principal) | CPT/HCPCS: 99212 ==

== ENCOUNTER 2023-08-18 08:03 | Outpatient (REF) | payer OTHER, SELFPAY ==
--- NOTE | ~2023-08-18 | FL_ITS ---
EXAMINATION: XR FLUOROSCOPY UPPER GI WITH AIR CLINICAL INFORMATION: Melanoma. Endoscopy not performed due to ANKUSH. COMPARISON: None TECHNIQUE: Fluoroscopic air contrast upper GI examination was performed utilizing standard techniques with thin and thick barium and effervescent granules. Numerous spot images were obtained. FINDINGS: Upper GI: Dual and single contrast images of the esophagus demonstrate normal caliber, contour, and mucosal pattern. No evidence of stricture, mass, or ulcerations identified. Esophageal peristalsis is mildly disorganized. A small type I hiatal hernia is present. No significant gastroesophageal reflux was seen during the course of the examination and on reflux views. Dual contrast and single contrast images of the stomach demonstrated normal contour and mucosal pattern without evidence of mass, ulceration, or other abnormality. Contrast freely passed into the gastric antrum and duodenal bulb without delay. Small bowel series: Vacuum Cleaner Assembler view demonstrates normal gas pattern without dilated loops of bowel. Normal amount of fecal material is seen throughout the colon. Mild bilateral hip joint degenerative changes are present, as well as mild lumbar spine degenerative changes. Lung bases are clear. No abnormal calcifications or organomegaly noted. Single and air-contrast images of the duodenal bulb demonstrate no abnormality. The duodenal sweep has a normal appearance, course, and mucosal fold appearance. The imaged small bowel has normal caliber and fold pattern. No strictures or masses are present. Contrast is observed in the descending and transverse colon at 2 hour 30 minutes . FLUOROSCOPY TIME: 4 minutes 42 seconds Number of Spot Images: 1 Number of Cine: 15 DOSE AREA PRODUCT: 1937 uGy-m2 (microgray-meter squared) FL/FL barium swallow w SBFT IMPRESSION: 1. Mildly disorganized esophageal peristalsis 2. Small type I hiatal hernia 3. Normal small bowel series. Contrast is observed in the colon at 2 hours and 30 minutes. This procedure was performed by Mehul Kraft PA-C, and supervised by Dr. Gee
== END 2023-08-18 08:04 | disposition home or self-care (01) ==
LOC: HO.XRAY 08:03
PROVIDERS: PCP Internal Medicine; Visit Provider Internal Medicine Gastroenterology
DX: K92.1 Melena (principal)
CPT/HCPCS: 74230; 74250

== ENCOUNTER → 2023-08-18 08:05 | Outpatient (BNV) | payer OTHER, SELFPAY | PROVIDERS: PCP Internal Medicine; Visit Provider Physician Assistant Surgical | DX: K92.1 Melena (principal) | CPT/HCPCS: 74246; 74248 ==

== ENCOUNTER 2024-08-03 14:16 | Emergency (ER) | payer OTHER, SELFPAY ==
[2024-08-03 14:28] VITALS: BP 120/71; PULSE 66; RESP 18; TEMP 36.6; O2SAT 94; BMI 66.4
--- NOTE | 2024-08-03 14:37 | ED_ITS ---
HPI - General Adult General Chief complaint: Back Pain/Injury Stated complaint: Back pain Time Seen by Provider: 08/03/24 14:37 Source: patient, RN notes reviewed and old records reviewed Mode of arrival: ambulatory Limitations: no limitations History of Present Illness ED Provider: Lamberto LOPEZ narrative: 43-year-old male presents for evaluation of right lower back pain that radiates in his right leg. He reports a history of sciatica. He saw his doctor today and was diagnosed with sciatica He reports his doctor is ?unable to prescribe anything for pain and I can not sleep. ? He reports he has a recent MRI from a few months ago but ?nobody has the ability to read the disc because the software is different. He denies any recent falls or trauma. Denies any weakness. Denies any numbness, tingling pain His pain is 10/27 Related Data Home Medications ?Medication ?Instructions ?Recorded ?Confirmed acetaminophen 650 mg 1,300 mg PO Q12H 11/28/21 05/15/23 tablet,extended release (Tylenol Arthritis Pain) Previous Rx's ?Medication ?Instructions ?Recorded aspirin 81 mg tablet,delayed 81 mg PO DAILY 90 days #90 tabs 10/07/22 release (Adult Low Dose Aspirin) irbesartan 300 mg tablet 300 mg PO DAILY 90 days #90 tabs 12/31/22 amlodipine 10 mg tablet 10 mg PO DAILY 90 days #90 tabs 01/02/23 chlorthalidone 25 mg tablet 25 mg PO DAILY 90 days #90 tabs 01/02/23 hydrocortisone acetate 25 mg 25 mg MD BEDTIME #12 ea 03/14/23 rectal suppository (Anusol-HC) pantoprazole 40 mg tablet,delayed 40 mg PO DAILY #90 tabs 03/20/23 release sennosides 8.6 mg-docusate sodium 1 tab-cap PO BEDTIME 60 days #60 05/15/23 50 mg tablet (Laxative Stool tabs Softener With Senna) hydrocortisone acetate 25 mg 25 mg MD BEDTIME 30 days #24 ea 10/09/23 rectal suppository (Anusol-HC) cyclobenzaprine 10 mg tablet 10 mg PO TID PRN muscle spasm #20 08/03/24 tabs dexamethasone 4 mg tablet 4 mg PO BID #6 tabs 08/03/24 tramadol 50 mg tablet 50 mg PO Q6H PRN pain, severe #12 08/03/24 tabs Allergies Allergy/AdvReac Type Severity Reaction Status Date / Time oxycodone Allergy rash Verified 08/03/24 14:38 shellfish derived Allergy Anaphylaxis Verified 08/03/24 14:38 Review of Systems Constitutional: Constitutional: Denies chills, Denies frequent falls and Denies headache(s) ENT: Denies vertigo, Denies dizziness and Denies headache(s) Cardiovascular: Cardiovascular: Denies chest pain and Denies dyspnea Respiratory: Respiratory: Denies cough and Denies dyspnea Gastrointestinal: Gastrointestinal: Denies abdominal pain Musculoskeletal: Musculoskeletal: Reports back pain, Denies numbness, Reports radiating pain into limb, Reports stiffness and Denies tingling Neurologic: Denies vertigo, Denies dizziness, Denies frequent falls, Denies headache(s), Denies numbness and Denies tingling PMFSH Past Medical History Medical History Morbid obesity with BMI of 50.0-59.9, adult Foot callus Polyarthralgia Uncontrolled hypertension Strabismus COVID-19 Right knee pain ANKUSH (obstructive sleep apnea) Long-term use of aspirin therapy Essential hypertension Surgical History History of tooth extraction History of carpal tunnel surgery of right wrist Family History Family History Mother No problems noted. Father No problems noted. Sister No problems noted. Sister No problems noted. 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/ Cognitive needs: No Hearing needs: No Vision needs: No Physical Exam ED Vital Signs: Vital Signs - 24 hr 08/03/24 14:28 Temperature 97.8 F Pulse Rate 66 Respiratory Rate 18 Blood Pressure 120/71 Pulse Oximetry 94 Oxygen Delivery Method Room Air BMI result Body Mass Index 66.4 Const General: healthy appearing, comfortable, no acute distress, alert and awake Nutritional Appearance: well nourished and obese morbidly obese Orientation/consciousness: patient oriented x3 HENMT Head: Yes normocephalic and Yes atraumatic Eyes Eyelids: Yes eyelids normal Conjunctivae: conjunctivae normal Sclerae: sclerae normal Corneas: corneas normal Pupils: Equal, round and reactive pupils present EOM: EOMs intact bilaterally Neck Neck: Yes full ROM Resp Effort & Inspection: normal respiratory effort, able to speak in complete sentences and not labored Back/Spine/Pelvis Other: There is right-sided lumbar sacral tenderness without focal vertebral tenderness. No step-offs or deformities. Straight leg raise positive on right. Skin General skin exam: elasticity normal Neuro Other: Strength of bilateral lower extremities a 5/5 and equal General: patient oriented x3 Cranial nerves: Yes Equal, round and reactive pupils present and Yes Bilaterally intact EOM present Cognition (Neuro): normal cognition Medical Decision Making Medical Decision Making MDM Narrative: 43-year-old male presents for evaluation of right lower back pain. Has a history of sciatica, denies any recent injury. He has a reassuring exam. He reports a recent outpatient MRI but I do not have access to this. However given his reassuring exam I do not see any indication for further workup. We will treat his pain with cyclobenzaprine and tramadol in addition to [id number] meds. I will also give him a 3 day course of dexamethasone. He reports that he does have a primary doctor he can follow up with Differential Diagnosis Differential Diagnoses: The differential diagnosis associated with the presentation includes Sciatica Radiculopathy Back pain Morbid obesity Discharge Plan Discharge Clinical Impression: Low back pain Patient Disposition: Home, Self-Care Instructions: Sciatica (ED) Additional Instructions: Take dexamethasone twice daily for 3 days. Use cyclobenzaprine as needed for muscle spasms. Take tramadol for severe breakthrough pain that is not relieved with ibuprofen and Tylenol. Tramadol and cyclobenzaprine can make you drowsy, do not drink alcohol or drive after taking it Follow-up with your primary doctor, return for new or worsening symptoms Prescriptions: New dexamethasone 4 mg tablet 4 mg PO BID Qty: 6 0RF cyclobenzaprine 10 mg tablet 10 mg PO TID PRN (Reason: muscle spasm) Qty: 20 0RF tramadol 50 mg tablet 50 mg PO Q6H PRN (Reason: pain, severe) Qty: 12 0RF No Action aspirin [Adult Low Dose Aspirin] 81 mg tablet,delayed release (DR/EC) 81 mg PO DAILY 90 Days Qty: 90 1RF irbesartan 300 mg tablet 300 mg PO DAILY 90 Days Qty: 90 3RF amlodipine 10 mg tablet 10 mg PO DAILY 90 Days Qty: 90 3RF chlorthalidone 25 mg tablet 25 mg PO DAILY 90 Days Qty: 90 3RF hydrocortisone acetate [Anusol-HC] 25 mg suppository 25 mg MD BEDTIME Qty: 12 0RF hydrocortisone acetate [Anusol-HC] 25 mg suppository 25 mg MD BEDTIME 30 Days Qty: 24 2RF pantoprazole 40 mg tablet,delayed release (DR/EC) 40 mg PO DAILY Qty: 90 1RF acetaminophen [Tylenol Arthritis Pain] 650 mg tablet extended release 1,300 mg PO Q12H sennosides-docusate sodium [Lax Stool Softener With Senna] 8.6-50 mg tablet 1 tab-cap PO BEDTIME 60 Days Qty: 60 3RF Discharge Date/Time: 08/03/24 14:53 Print Language: Ethiopian
--- OUTSIDE RECORDS SUMMARY | 2024-08-03 17:04 | XMS_ITS | Encounter Summary ---
Author Organization [facility] Address [address] [place] [address] Care Team Providers Care Inspector Receiving Name Role Phone Doroteo Cash MD Primary Care Provider Encounter Details Date Type Department Care Team (Late st Contact Info) Description 07/13/2024 Telephone Adult Medicine [facility] [place] [id number] [place], [place] [phone] Gabby Marcum PA [address] [place], [place] Social History Tobacco Use Types Packs/Day Years Used Date Smoking Tobacco: Former Smokeless Tobacco: Never Alcohol Use Standard Drinks/Week Comments Yes 0 (1 standard drink = 0.6 oz pur e alcohol) Sex and Gender Information Value Date Recorded Sex Assigned at Male 05/28/2024 10:24 AM EDT Legal Sex Male 11:03 AM EDT Gender Identity Male 05/28/2024 10:24 AM EDT Sexual Orientation Straight 05/28/2024 10 :24 AM EDT documented as of this encounter Progress Notes * Kimberlee Freeman MA - 07/14/2024 11:35 AM EDT Colonoscopy report pulled from [facility], placed into providers bin for review. * LORNA Newman - 07/13/2024 3:43 PM EDT Patient reports he had a colonoscopy at [facility]. Please request. documented in this encounter Plan of Treatment Upcoming Encounters Date Type Department Care Team (Late st Contact Info) Description 10/14/2024 2:30 PM EDT Office Visit Adult Medicine [facility] [address] [place] [address] Doroteo Cash MD [address] [place] [address] documented as of this encounter Visit Diagnoses Not on filedocumented in this encounter Care Teams Inspector Receiving Relationship Specialty Start Date End Date Doroteo Cash MD [address] [place] [id number] PCP - General 03/03/23 documented as of this encounter
== END 2024-08-03 14:53 | disposition home or self-care (01) ==
PROVIDERS: Emergency Provider Emergency Medicine Emergency Medical Services
DX: M54.50 Low back pain, unspecified (principal); I10 Essential (primary) hypertension; Z87.891 Personal history of nicotine dependence; Z79.82 Long term (current) use of aspirin; Z79.899 Other long term (current) drug therapy
CPT/HCPCS: 99281; 99283

== ENCOUNTER 2024-11-15 11:10 | Outpatient (AMB) | payer OTHER, SELFPAY ==
--- NOTE | 2024-11-15 11:11 | MHC.OFFVIS ---
Vital Signs 11/15/24 11:13 Height 5 ft 8 in Weight 434 lb BMI 66.0 BP 160/88 H Blood Pressure Location Lt radial Position Sitting Respiration 17 Pulse 88 Pulse Source Pulse Oximeter Pulse Oximetry (%) 97 Oxygen Delivery Method Room Air Intake Visit Reasons: Disorder of Sacrum Intake Note: Worker's comp rep present Content Director Required: No Accompanied by: Spouse Allergies oxycodone Allergy (Verified 11/15/24 11:17) rash shellfish derived Allergy (Verified 11/15/24 11:17) Anaphylaxis Medication List - Last Reconciled 11/15/24 by Deirdre Oliveros LPN amlodipine 10 mg PO DAILY 90 days aspirin (Adult Low Dose Aspirin) 81 mg PO DAILY 90 days chlorthalidone 25 mg PO DAILY 90 days hydrocortisone acetate (Anusol-HC) 25 mg CA BEDTIME irbesartan 300 mg PO DAILY 90 days pantoprazole 40 mg PO DAILY HPI HPI Disorder of Sacrum: Details: History of Present Illness The patient is a 44-year-old male presenting with low back pain. The low back pain began on May 03 and radiates down the right leg to the foot, accompanied by numbness and tingling. The pain is exacerbated by walking, requiring the patient to lean over to relieve pressure on the nerve. An MRI conducted on June 23 revealed moderate disc degeneration with a right foraminal disc protrusion at L4-5, affecting the right exiting nerve root. The patient has attempted physical therapy and lidocaine patches without significant relief. 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 The patient has a history of morbid obesity, weighing 435 pounds, which complicates the management of his condition. Pain Description - Onset: May 03 - Quality: Radiating pain with numbness and tingling - Location: Low back, radiating down the right leg to the foot - Exacerbating factors: Walking - Relieving factors: Leaning over to relieve nerve pressure Physical Exam - Appears afebrile. - Alert and oriented. - Mood and affect appropriate. - Follows and participates in conversation appropriately. - Respiratory effort is unlabored. - Straight leg raise not possible due to body habitus. Results - MRI: Moderate disc degeneration with right foraminal disc protrusion at L4-5 affecting the right exiting nerve root Pain Management - Affect: Pain is causing frustration and impacting daily activities - Analgesia: Lidocaine patches used without relief; gabapentin not tried due to drowsiness concerns - Activities of Daily Living: Pain interferes with walking and requires leaning to relieve pressure - Aberrant Drug Related Behaviors: None reported [facility] Medical History (Updated 11/18/24 @ 13:16 by Kenton Calderon MD) Morbid obesity with BMI of 50.0-59.9, adult Foot callus Polyarthralgia Uncontrolled hypertension Strabismus COVID-19 Right knee pain ANKUSH (obstructive sleep apnea) Long-term use of aspirin therapy Essential hypertension Surgical History (Updated 09/17/24 @ 13:56 by Nancy Tolbert) Hx of colonoscopy History of tooth extraction History of carpal tunnel surgery of right wrist Family History Mother No problems noted. Father No problems noted. Sister No problems noted. Sister No problems noted. 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 1. Low Back Pain - Consideration of right L4 transforaminal epidural steroid injection if equipment allows, though challenges exist due to patient's weight and needle length limitations. - Physical therapy and lidocaine patches have been attempted without significant relief. - Gabapentin not used due to drowsiness affecting work safety. 2. Right Foraminal Disc Protrusion At L4-5 - MRI confirmed moderate disc degeneration with right foraminal disc protrusion at L4-5 affecting the right exiting nerve root. - Surgical consultation for microdiskectomy considered but may face similar challenges due to patient's weight. 3. Obesity - Weight management discussed as a necessary component of overall treatment plan. Discussion Notes During the consultation, we discussed the challenges of performing an epidural steroid injection due to the patient's weight and the limitations of needle length. We also reviewed the MRI findings, which confirmed moderate disc degeneration with a right foraminal disc protrusion at L4-5. The possibility of surgical intervention was considered, but similar challenges may arise due to the patient's weight. We emphasized the importance of weight management as part of the treatment plan and discussed the potential use of gabapentin, which the patient has not tried due to concerns about drowsiness affecting his job. Patient Instructions - Follow up with weight management program to address obesity. - Consider discussing alternative pain management options with your healthcare provider. - Avoid activities that exacerbate pain, such as excessive bending and lifting. Coding Level of Care Code New Pt Level 4 (44170) Diagnoses Lumbar radiculopathy M54.16
[2024-11-15 11:13] VITALS: BP 160/88; PULSE 88; RESP 17; O2SAT 97; BMI 66.0
--- OUTSIDE RECORDS SUMMARY | 2024-11-15 12:39 | XMS_ITS | Clinical Summary ---
Author Organization [facility] Address [address] [place] [address] Phone Care Team Providers Care Dredge Lever Operator Name Role Phone Doroteo Cash MD Primary Care Provider Allergies Active Allergy Reactions Criticality Noted Date Comments Oxycodone Hives High 04/28/2023 Medications aspirin 81 mg chewable tablet Chew 1 tablet (81 mg total) 1 (one) time each day. Active amLODIPine (NORVASC) 10 mg tablet Take 1 tablet (10 mg total) by mouth 1 (one) time each day. 90 tablet 1 05/28/2024 Active acetaminophen (TYLENOL 8 HOUR) 650 mg 8 hr tablet Take 1 tablet (650 mg total) by mouth every 8 (eight) hours if needed for mild pain. 30 tablet 5 05/28/2024 Active chlorthalidone (HYGROTON) 25 mg tablet Take 1 tablet (25 mg total) by mouth 1 (one) time each day. 90 tablet 1 05/28/2024 Active irbesartan (AVAPRO) 300 mg tablet Take 1 tablet (300 mg total) by mouth 1 (one) time each day. 90 tablet 1 05/28/2024 Active pantoprazole (PROTONIX) 40 mg EC tablet Take 1 tablet (40 mg total) by mouth 1 (one) time each day. 90 tablet 1 05/28/2024 Active cyclobenzaprine (FLEXERIL) 10 mg tablet Take 1 tablet (10 mg total) by mouth at bedtime as needed for muscle spasms. 30 tablet 1 07/13/2024 Active Active Problems Problem Noted Date Diagnosed Date Hepatic steatosis 07/31/2023 Prediabetes 07/31/2023 Pure hypercholesterolemia 07/31/2023 Arthritis 04/28/2023 Gastroesophageal reflux disease without esophagi tis 04/28/2023 Morbid obesity ([facility] V24, [facility] V28) 2023 ANKUSH (obstructive sleep apnea) 04/28/2023 Primary hypertension 04/28/2023 Immunizations Immunization Administration Dates Next Due Influenza Quadravalent, MDCK , 0.5ml, preservative free (Flucelvax) 6mo and older 04/28/2023,02/04/2021 Influenza Quadravalent, MDCK , 0.5ml, with preservative (Flucelvax) 6mo and older 12/04/2021 Tdap Tetanus diptheria acell ular pertussis (Boostrix; Adacel) 7yo and older 08/29/2020 Surgical History Surgery Date Site/Laterality Comments CARPAL TUNNEL RELEASE Right PROCEDURE: HISTORICAL CARPAL TUNNEL REL COLONOSCOPY 05/19/2023 PROCEDURE: HISTORICAL COLONOSCOPY Medical History Medical History Date Comments Primary hypertension 04/28/2023 DX:Primary hypertension Morbid obesity ([facility] V24, [facility] V28) 04/28/2023 DX:Morbid obesity ([facility]) Gastroesophageal reflux dise ase without esophagitis 04/28/2023 DX:Gastroesophageal reflux d isease without esophagitis ANKUSH (obstructive sleep apnea) 04/28/2023 DX :ANKUSH (obstructive sleep apnea) Arthritis 04/28/2023 DX:Arthritis Family History Medical History Relation Name Comments Other: murdered Father Other: not sure Mother Arthritis Sister 1 Other: some kind of hematologic malignancy Sister 1 Arthritis Sister 2 Asthma Sister 2 Diabetes Sister 2 Hyperlipidemia Sister 2 Relation Name Status Comments Father Mother Alive Sister 1 Alive Sister 2 Alive Social History Tobacco Use Types Packs/Day Years Used Date Smoking Tobacco: Former Smokeless Tobacco: Never Tobacco Cessation:Counseling Given: Not Answered Alcohol Use Standard Drinks/Week Comments Yes 0 (1 standard drink = 0.6 oz pur e alcohol) Sex and Gender Information Value Date Recorded Sex Assigned at Male 05/28/2024 10:24 AM EDT Legal Sex Male 11:03 AM EDT Gender Identity Male 05/28/2024 10:24 AM EDT Sexual Orientation Straight 05/28/2024 10 :24 AM EDT Obstetrics History Last Filed Vital Signs Vital Sign Reading Time Taken Comments Blood Pressure 130/60 07/13/2024 2:56 PM EDT Pulse 90 07/13/2024 2:56 PM EDT Temperature 36.4 C (97.6 F) 07/13/2024 2:56 PM EDT Respiratory Rate 15 07/13/2024 2:56 PM EDT Oxygen Saturation 97% 05/28/2024 10:34 AM EDT Inhaled Oxygen Concentration - - Weight 194 kg (427 lb) 07/13/2024 2:56 PM EDT Height 172.7 cm (5' 8 ) 07/13/2024 2:56 PM EDT Body Mass Index 64.93 07/13/2024 2:56 PM EDT Plan of Treatment Health Maintenance Due Date Last Done Comments Hepatitis B Vaccines (1 of 3 - 19+ 3-dose series) 1997 Pneumococcal Vaccine: Pediatrics (0 to 5 Years) and At-Risk Patients (6 to 49 Years) (1 of 2 - PCV) 1997 Cholesterol Screening (Lipid Panel) 09/12/2023 HIV Screening 09/12/2023 Hepatitis C Screening 09/12/2023 Social Influencers of Health Screening 09/12/2023 Depression Screening 02/18/2024 04/28/2023 Hypertension/CHF/CAD Annual BMP Blood Test 04/27/2024 04/28/2023 COVID-19 Vaccine (3 - 2024-2 6 season) 2024 04/28/2020, 04/07/2020 Influenza Vaccine (#1) 2024 , 12/04/2021, 02/04/2021 DTaP,Tdap,and Td Vaccines (2 - Td or Tdap) 08/29/2030 08/29/2020 Colorectal Cancer Screening: Colonoscopy 07/20/2034 07/20/2024, 05/19/2023 HIB Vaccines Aged Out No longer eligi ble based on patient's age to complete this topic HPV Vaccines Aged Out No longer eligi ble based on patient's age to complete this topic Hepatitis A Vaccines Aged Out No long er eligible based on patient's age to complete this topic IPV Vaccines Aged Out No longer eligi ble based on patient's age to complete this topic MMR Vaccines Aged Out No longer eligi ble based on patient's age to complete this topic Meningococcal ACWY Vaccine Aged Out N o longer eligible based on patient's age to complete this topic Meningococcal B Vaccine Aged Out No l onger eligible based on patient's age to complete this topic RSV Immunization Patients Under 20 months Aged Out No longer eligible b ased on patient's age to complete this topic Varicella Vaccines Aged Out No longer eligible based on patient's age to complete this topic Procedures Procedure Name Priority Date/Time Associated Diagnosis Comments EXTERNAL COLONOSCOPY REPORT Routine 07/20/2024 4:07 PM EDT DEPRESSION SCREENING Routine 04/28/2023 ANNUAL BMP BLOOD TEST Routine 04/28/2023 from Last 3 Months or Most Recently Relevant to Health Maintenance Results * External Colonoscopy Report (07/20/2024 4:07 PM EDT) Anatomical Region Laterality Modality Endoscopy Historical Provider GI~PROCEDURE ORDERABLES F inal Result * Annual BMP Blood Test (04/28/2023) Annual BMP Blood Test Abstracted Historical Provider HEALTH MAINTENANCE Final Result * Depression Screening (04/28/2023) Depression Screening Abstracted Historical Provider HEALTH MAINTENANCE Final Result from Last 3 Months or Most Recently Relevant to Health Maintenance Insurance [facility] [facility] Care Teams Dredge Lever Operator Relationship Specialty Start Date End Date Doroteo Cash MD [address] [place] [address] PCP - General 03/03/23
== END 2024-11-15 12:27 | disposition home or self-care (01) ==
PROVIDERS: Referring Provider Physical Medicine & Rehabilitation; Visit Provider Internal Medicine
DX: M54.16 Radiculopathy, lumbar region (principal)
CPT/HCPCS: 99203

== ENCOUNTER → 2024-11-15 11:10 | Outpatient (BNVA) | payer OTHER, SELFPAY | PROVIDERS: Referring Provider Physical Medicine & Rehabilitation; Visit Provider Internal Medicine | DX: M51.16 Intervertebral disc disorders with radiculopathy, lumbar region (principal); E66.9 Obesity, unspecified | CPT/HCPCS: 99202 ==

== ENCOUNTER 2025-01-05 12:30 | Day surgery (SDC) | payer OTHER, SELFPAY ==
--- OUTSIDE RECORDS SUMMARY | 2024-12-24 14:40 | XMS_ITS | Clinical Summary ---
Author Organization [facility] Address [address] [address] Phone Care Team Providers Care Needle Loom Operator Name Role Phone Pcp, Unknown Primary Care Provider Unavailabl e Allergies Active Allergy Reactions Criticality Noted Date Comments Shellfish Containing Products 2024 Medications irbesartan (AVAPRO) 300 MG tablet Take 300 mg by mouth. 05/28/2024 Active amLODIPine (NORVASC) 10 MG tablet Take 10 mg by mouth. 05/28/2024 Active chlorthalidone (HYGROTON) 25 MG tablet Take 25 mg by mouth. 05/28/2024 Active aspirin 81 mg chewable tablet Take 81 mg by mouth. Active cholecalciferol, vitamin D3, (VITAMIN D3 ORAL) Take by mouth. Active VITAMIN C, ASCORBATE CALCIUM, ORAL Take by mouth. Active MAGNESIUM ORAL Take by mouth. Active Encounters Date Type Department Care Team Description 10/12/2024 Telephone [facility] [address] [place] [address] [place] [address] Referral Confirmation 10/04/2024 Telephone [facility] [address] [place] [address] [place] [address] Ketan Roche 09/27/2024 Telephone [facility] [address] [place] [address] [place] [address] Suleiman Durán MD [employer] Member Workers Comp ([employer] Faculty Member Workers Comp) from Last 3 Months Social History Tobacco Use Types Packs/Day Years Used Date Smoking Tobacco: Never Assessed Education Answer Date Recorded Are you interested in more education? Not on real e 07/21/2024 Are you concerned about learning? Not on file 07/21/2024 No 07/21/2024 No 07/21/2024 Digital Access Answer Date Recorded No 07/21/2024 No 07/21/2024 Reliable internet access at home? Not on file 07/21/2024 Device with a working camera? Not on file Sex and Gender Information Value Date Recorded Sex Assigned at Not on file Legal Sex Male 9:56 AM EDT Gender Identity Not on file Sexual Orientation Not on file Last Filed Vital Signs Vital Sign Reading Time Taken Comments Blood Pressure 114/66 08/03/2024 12:54 PM EDT Pulse 68 08/03/2024 12:54 PM EDT Temperature - - Respiratory Rate - - Oxygen Saturation 93% 08/03/2024 12: 54 PM EDT Inhaled Oxygen Concentration - - Weight 198.6 kg (437 lb 12. 8 oz) 08/03/2024 12:54 PM EDT Height 172.7 cm (5' 8 ) 08/03/2024 12:5 4 PM EDT pt reported Body Mass Index 66.57 08/03/2024 12:54 PM EDT Plan of Treatment Health Maintenance Due Date Last Done Comments Adult Td,Tdap Booster 1978 CREATININE LEVEL 1978 LIPID PANEL 1978 POTASSIUM LEVEL 1978 DEPRESSION SCREENING 1990 SMOKING Hx and SMOKELESS TOB ACCO SCREENING 10/28/1991 HEPATITIS C SCREENING 1996 HIV ONE-TIME SCREENING (18-6 5 YEARS) 1996 SCREENING FOR DIABETES 2013 COLOGUARD 10/28/2023 COLONOSCOPY 10/28/2023 COLORECTAL CANCER SCREENING 10/28/2023 FIT TEST 10/28/2023 FOBT 10/28/2023 SIGMOIDOSCOPY 10/28/2023 VIRTUAL COLONOSCOPY 10/28/2023 INFLUENZA VACCINE (#1) 2024 COVID-19 VACCINE (2024-2 6 season) 2024 HEPATITIS A VACCINES Aged Out No long er eligible based on patient's age to complete this topic HIB VACCINES Aged Out No longer eligi ble based on patient's age to complete this topic MENINGOCOCCAL VACCINES (ACWY) Aged Out No longer eligible based on patient's age to complete this topic MENINGOCOCCAL VACCINES (B) Aged Out N o longer eligible based on patient's age to complete this topic PNEUMOCOCCAL VACCINES (0-49 years) Aged Out No longer eligible based on patient's age to complete this topic Medical Devices Not on file Insurance [facility] Care Teams Needle Loom Operator Relationship Specialty Start Date End Date Pcp, Unknown PCP - General 07/16/24 Additional Source Comments The information contained in this document represents components of the legal health record. It is not the complete legal health record.[facility]
[2025-01-03 08:33] VITALS: BMI 66.0
--- NOTE | ~2025-01-05 | FL_ITS ---
EXAMINATION: XR FLUOROSCOPY WITH IMAGES CLINICAL INFORMATION: L4 transforaminal steroid injection. COMPARISON: None available. TECHNIQUE: Fluoroscopy time: 21 seconds DAP: 2.3 mGycm2 Images: 3 FINDINGS: Fluoroscopy provided for procedure. 3 images related to a transfemoral steroid injection. FL/FL guidance in OR IMPRESSION: Fluoroscopy provided for procedure. See procedure report for details. Electronically signed by: Lenny Daley MD 01/06/2025 12:54 PM [facility]
[2025-01-05 13:00] VITALS: BP 130/58; PULSE 79; RESP 16; TEMP 36.6; O2SAT 95
--- NOTE | 2025-01-05 14:25 | MHC.SHP ---
Pre-Procedural Eval Section A - 24 Hr Update-Section A only Date of Service: 01/05/25 The patient is an INPATIENT: No Changes since office visit: Yes Patient answered all questions The patient has been examined within 24 hours of the surgical procedure. The History & Physical has been completed within 30 days and I have reviewed it.: No Section B - Complete if H&P > 30 days Chief Complaint: Radiculopathy, lumbar region Relevant Family History (Specify if Yes): No Relevant Social History: None Present Medications: see Short Stay Collaborative assessment Medical History: No relevant PMH History of Previous Operations: No relevant previous surgery Allergies: Allergies Allergy/AdvReac Type Severity Reaction Status Date / Time oxycodone Allergy rash Verified 11/15/24 11:17 shellfish derived Allergy Anaphylaxis Verified 11/15/24 11:17 Review of Systems Sugical H&P ROS: Negative: Constitution, Cardiovascular and Respiratory Exam Surgical H&P Exam: Normal: HEENT, Normal: Heart and Normal: Lungs Plan Diagnosis/Plan: Unchanged I have reviewed the history and physical and performed a pertinent physical examination on my patient. No changes have occurred unless specified. Time Spent With Patient Time: Total time managing care of this patient today ____ minutes.
[2025-01-05 15:02] VITALS: BP 129/77; PULSE 70; RESP 16; TEMP 37.1; O2SAT 96
--- NOTE | 2025-01-05 15:54 | PM.OP ---
Brief Operative Note Date of Service: 01/05/25 Pre-op diagnosis: Lumbar Radiculopathy Post-op diagnosis: same Procedure: Transforaminal epidural steroid injection, Right L4 Surgeon: Kenton Calderon MD Anesthesia: local Was an Waste Water Treatment Plant Operator used for this Procedure?: No Estimated blood loss (mL): 0 Pathology: none sent Condition: stable Disposition: PACU
--- NOTE | 2025-01-05 15:55 | W.PM.OPN ---
Operative Note Operative Note Date of Service: 01/05/25 Narrative: Preop Diagnosis: Lumbar radiculopathy Postop Diagnosis: Same Transforaminal epidural steroid injection, Right L4 After obtaining written consent, pre-procedure blood pressure and heart rate were stable and recorded in the nursing record. The patient was placed in the prone position on the fluoroscopy table. The lumbosacral area was prepped with chloraprep, allowed to dry and draped in sterile fashion. Using fluoroscopy, the skin overlying our target was anesthetized with 0.5% lidocaine. A 22 gauge 7 inch spinal needle was advanced to the safe triangle in the upper pole of the right L4 foramen. No paresthesias were elicited with needle placement and aspiration was negative for blood and CSF. Correct needle position was confirmed with approximately 1 ml contrast dye (Omnipaque 180 mg/ml) injected under real-time fluoroscopy. No evidence of vascular or intrathecal uptake was seen and there was both epidural and peripheral spread of the contrast agent. 10 mg dexamethasone plus 1 ml containing 0.5% lidocaine was slowly injected. The needle was flushed and removed. The skin was cleansed and a sterile bandages were applied. The patient tolerated the procedure well and no complications were encountered. Following the procedure the patient's vital signs were stable. The patient was discharged home in good condition with post-procedural instructions. Time Out: Immediately prior to the procedure, the following was verbally confirmed that there is a signed consent form and that the correct patient, planned procedure, site and side are consistent with documentation and that necessary equipment and/or blood products are available prior to the start of the case. Complications: none EBL: 0 cc
== END 2025-01-05 15:15 | disposition home or self-care (01) ==
PROVIDERS: Visit Provider Internal Medicine
PROC: 3E0R33Z Introduction of Anti-inflammatory into Spinal Canal, Percutaneous Approach (ICD-10-PCS; CPT 64483; principal; 2025-01-05 14:30)
DX: M51.16 Intervertebral disc disorders with radiculopathy, lumbar region (principal); M54.50 Low back pain, unspecified; R26.2 Difficulty in walking, not elsewhere classified; M53.3 Sacrococcygeal disorders, not elsewhere classified; R20.0 Anesthesia of skin; R20.2 Paresthesia of skin; M25.561 Pain in right knee; I10 Essential (primary) hypertension; E66.01 Morbid (severe) obesity due to excess calories; Z68.44 Body mass index [BMI] 60.0-69.9, adult; G47.33 Obstructive sleep apnea (adult) (pediatric); Z79.82 Long term (current) use of aspirin; Z79.899 Other long term (current) drug therapy; Z88.5 Allergy status to narcotic agent; Z91.013 Allergy to seafood; Z87.891 Personal history of nicotine dependence
CPT/HCPCS: 64483; J1100; J2003; Q9965

== ENCOUNTER → 2025-01-05 12:30 | Outpatient (BNV) | payer OTHER, SELFPAY | PROVIDERS: Visit Provider Internal Medicine | DX: M54.16 Radiculopathy, lumbar region (principal) | CPT/HCPCS: 64483 ==

== ENCOUNTER 2025-01-21 10:30 | Outpatient (AMB) | payer OTHER, SELFPAY ==
--- NOTE | 2025-01-21 10:30 | MHC.OFFVIS ---
Vital Signs 01/21/25 10:32 Height 5 ft 8 in Weight 441 lb BMI 67.0 BP 188/76 H Blood Pressure Location Rt radial Position Sitting Respiration 16 Pulse 85 Pulse Source Pulse Oximeter Pulse Oximetry (%) 91 L Oxygen Delivery Method Room Air Intake Visit Reasons: FOLLOW UP AFTER PROCEDURE Hair Blender Required: No Allergies oxycodone Allergy (Verified 01/21/25 10:33) rash shellfish derived Allergy (Verified 01/21/25 10:33) Anaphylaxis HPI HPI FOLLOW UP AFTER PROCEDURE: Details: History of Present Illness The patient is a 44 year old male presenting for follow-up after a transforaminal epidural steroid injection for right radiculopathy. He reports resolution of his symptoms following the procedure. The patient acknowledges that his weight is a significant factor in his pain. He has a history of successful weight loss, having previously gone from 450 pounds to 300 pounds, which resulted in the resolution of his pain and improved mobility. Pain Description - Location: The patient had right-sided radiculopathy. - Current status: The patient reports his lumbar radicular symptoms have resolved following a recent procedure. - Exacerbating factors: Bending forward and excess weight are noted as putting pressure on his lower back. - Relieving factors: He has experienced pain relief from a transforaminal epidural steroid injection and historically from weight loss. Physical Exam - Appears afebrile. - Alert and oriented. - Mood and affect appropriate. - Follows and participates in conversation appropriately. - Respiratory effort is unlabored. - Able to transition from sit to stand unassisted. Results - Imaging from a prior procedure was reviewed, noting the needle tip was barely visible on the C-arm image due to patient's body habitus. Pain Management - Analgesia: The patient reports resolution of his radicular symptoms after a transforaminal epidural steroid injection. - Affect: The patient is keen to return to work. - Activities of Daily Living: The patient is cleared to return to his job and was counseled on proper body mechanics, such as avoiding bending forward and lifting with his knees, to prevent re-injury. - Adverse Effects: No adverse effects from medication or the procedure were discussed. - Aberrant Drug-Related Behaviors: No aberrant drug-related behaviors were discussed. [facility] Medical History (Updated 11/18/24 @ 13:16 by Kenton Calderon MD) Morbid obesity with BMI of 50.0-59.9, adult Foot callus Polyarthralgia Uncontrolled hypertension Strabismus COVID-19 Right knee pain ANKUSH (obstructive sleep apnea) Long-term use of aspirin therapy Essential hypertension Surgical History (Updated 09/17/24 @ 13:56 by Nancy Tolbert) Hx of colonoscopy History of tooth extraction History of carpal tunnel surgery of right wrist Family History Mother No problems noted. Father No problems noted. Sister No problems noted. Sister No problems noted. 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 1. Right Radiculopathy - The patient has experienced resolution of symptoms following a transforaminal epidural steroid injection. - He is cleared to return to his normal job, and a work note was provided. - The patient was counseled on proper body mechanics, including avoiding forward bending and using his knees to lift, to prevent reinjury. - He will follow up as needed and may schedule an appointment after his new insurance begins in February. 2. Obesity - The patient was counseled on the importance of weight loss, which he acknowledges is a primary contributor to his pain. - He has expressed intent to lose weight. Discussion Notes I reviewed the patient's status following his recent right transforaminal epidural steroid injection, and he reported that his symptoms have resolved. I have cleared him to return to work and provided him with a note to that effect. I extensively counseled him on the importance of proper body mechanics to prevent a recurrence of his disc-related issues. I specifically instructed him to avoid bending forward at the waist and to lift objects by bending his knees, explaining that this minimizes pressure on the lower back. We discussed that his weight is a primary factor in his condition, and he agreed on the need for weight loss. The patient will follow up on an as-needed basis and may schedule a new appointment after his insurance changes in February. Patient Instructions - You are cleared to return to your normal job. - To prevent your back problem from returning, avoid bending forward at the waist. - When you lift something, bend your knees and keep your back straight. - Losing weight is the most important thing you can do to help your back pain. - You do not need a scheduled follow-up appointment, but you can call to make one if you need to be seen again. - You can schedule a new appointment after your new insurance starts in February. Coding Level of Care Code Est Pt Level 3 (55435) Diagnoses Lumbar radiculopathy M54.16
[2025-01-21 10:32] VITALS: BP 188/76; PULSE 85; RESP 16; O2SAT 91; BMI 67.0
== END 2025-01-21 10:47 | disposition home or self-care (01) ==
PROVIDERS: Visit Provider Internal Medicine
DX: M54.16 Radiculopathy, lumbar region (principal)
CPT/HCPCS: 99213

== ENCOUNTER → 2025-01-21 10:30 | Outpatient (BNVA) | payer OTHER, SELFPAY | PROVIDERS: Visit Provider Internal Medicine | DX: M54.16 Radiculopathy, lumbar region (principal); E66.9 Obesity, unspecified; Z68.44 Body mass index [BMI] 60.0-69.9, adult | CPT/HCPCS: 99212 ==

== ENCOUNTER 2025-02-14 18:26 | Emergency (ER) | payer SELFPAY ==
--- NOTE | ~2025-02-14 | XR_ITS ---
CLINICAL HISTORY: pain, injury 4 view right knee Comparison: None provided Findings: Bones intact. No dislocations. No significant loss of joint space, osteophytes, or erosions. No joint effusion. No radiopaque foreign body. IMPRESSION: 1. No acute fracture. This document has been electronically signed by: Nyasia Alejo MD on 02/14/2025 19:59:57
[2025-02-14 19:09] VITALS: BP 154/86; PULSE 67; RESP 20; TEMP 36.2; O2SAT 96; BMI 63.9
--- NOTE | 2025-02-14 19:12 | ED.GENADULT ---
HPI - General Adult General Chief complaint: Extremity Problem Stated complaint: right knee injury/ pain Time Seen by Provider: 02/14/25 21:47 Source: patient Limitations: language barrier History of Present Illness ED Provider: Jess Rubin PA-C HPI narrative: 44-year-old male with a history of morbid obesity, chronic constipation, chronic pain, osteoarthritis, hypertension, ANKUSH, depression who presents with right knee pain x1 day. Patient states he stood up quickly, he subsequently ?bent the knee the wrong way?, then developed significant discomfort. Patient able to bear weight, although it is uncomfortable. Denies inability to flex or extend the knee. Related Data Previous Rx's ?Medication ?Instructions ?Recorded aspirin 81 mg tablet,delayed 81 mg PO DAILY 90 days #90 tabs 10/07/22 release (Adult Low Dose Aspirin) irbesartan 300 mg tablet 300 mg PO DAILY 90 days #90 tabs 12/31/22 amlodipine 10 mg tablet 10 mg PO DAILY 90 days #90 tabs 01/02/23 chlorthalidone 25 mg tablet 25 mg PO DAILY 90 days #90 tabs 01/02/23 hydrocortisone acetate 25 mg 25 mg [place] BEDTIME #12 ea 03/14/23 rectal suppository (Anusol-HC) pantoprazole 40 mg tablet,delayed 40 mg PO DAILY #90 tabs 03/20/23 release Allergies Allergy/AdvReac Type Severity Reaction Status Date / Time oxycodone Allergy rash Verified 02/14/25 19:13 shellfish derived Allergy Anaphylaxis Verified 02/14/25 19:13 Review of Systems Review of Systems: Yes all other systems are reviewed and are negative Constitutional: Constitutional: Denies fatigue and Denies fever(s) Musculoskeletal: Musculoskeletal: Reports arthralgias and Denies joint swelling Endocrine: Endocrine: Denies fatigue [facility] Past Medical History Attestation statement: The following information was validated with the patient. Medical History (Updated 02/15/25 @ 00:01 by Jay Muller) Morbid obesity with BMI of 50.0-59.9, adult Foot callus Polyarthralgia Uncontrolled hypertension Strabismus COVID-19 Right knee pain ANKUSH (obstructive sleep apnea) Long-term use of aspirin therapy Essential hypertension Surgical History (Updated 09/17/24 @ 13:56 by Nancy Tolbert) Hx of colonoscopy History of tooth extraction History of carpal tunnel surgery of right wrist Family History Family History Mother No problems noted. Father No problems noted. Sister No problems noted. Sister No problems noted. 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/ Cognitive needs: No Hearing needs: No Vision needs: No Physical Exam ED Vital Signs: Vital Signs - 24 hr 02/14/25 19:09 Temperature 97.1 F Pulse Rate 67 Respiratory Rate 20 Blood Pressure 154/86 H Pulse Oximetry 96 Oxygen Delivery Method Room Air BMI result Body Mass Index 63.9 Const Other: Alert Orientation/consciousness: patient oriented x3 Resp Effort & Inspection: normal respiratory effort Cardio Other: Normal peripheral perfusion Skin Other: Warm dry no rash Neuro General: patient oriented x3, gait normal, no focal motor deficits and CN's II-XI intact bilaterally Extrem Other: Able to flex and extend the right knee, no deformity, exam is somewhat skewed secondary to habitus Psych Other: Cough Course Course Course Narrative: Rapid medical examination performed in triage by Deirdre Banuelos PA-C: Patient is a 44 year old male presenting to the emergency department with right knee pain. Detailed physical exam and review of systems are deferred to the environmental inspector. Imaging ordered. Patient placed back in the waiting room pending room availability and results. Medical Decision Making Medical Decision Making MDM Narrative: 44-year-old male with a history of morbid obesity, chronic constipation, chronic pain, osteoarthritis, hypertension, ANKUSH, depression who presents with right knee pain x1 day. Patient states he stood up quickly, he subsequently ?bent the knee the wrong way?, then developed significant discomfort. Patient able to bear weight, although it is uncomfortable. Denies inability to flex or extend the knee. Problem: Morbid obesity, known arthritis, chronic pain history: Per patient I have considered the following differential diagnoses: Fracture, dislocation, sprain, contusion Plan: X-ray obtained, unremarkable, he has a sprain, we will treat accordingly. I have independently reviewed the following tests: X-ray right knee:Findings: Bones intact. No dislocations. No significant loss of joint space, osteophytes, or erosions. No joint effusion. No radiopaque foreign body. IMPRESSION: 1. No acute fracture. Differential Diagnosis Differential Diagnoses: The differential diagnosis associated with the presentation includes See MDM Admission/Observation Consideration of admission/observation: Escalation of care including admission/observation considered Not applicable Radiology Impression Discussion of test interpretation with radiology: I have reviewed the radiologist's reading. Discharge Plan Discharge Clinical Impression: Right knee sprain Patient Disposition: Home, Self-Care Instructions: Knee Sprain (ED), Crutch Instructions (ED), P.R.I.C.E. Treatment (ED) Additional Instructions: X-ray revealed no fracture or dislocation, you sustained a sprain/strain. See home care instructions. Bear weight as tolerated, keep the knee immobilizer in place to help stabilize the joint. Use the crutches to ambulate as well. Use [id number] Tylenol 1000 milligrams taken every 8 hours, alternated with [id number] ibuprofen 600 milligram every 6 hours with food, for your pain and inflammation. Follow up with your primary care provider, you may require physical therapy and/or additional imaging as an outpatient, if your symptoms remain refractory. Prescriptions: No Action aspirin [Adult Low Dose Aspirin] 81 mg tablet,delayed release (DR/EC) 81 mg PO DAILY 90 Days Qty: 90 1RF irbesartan 300 mg tablet 300 mg PO DAILY 90 Days Qty: 90 3RF amlodipine 10 mg tablet 10 mg PO DAILY 90 Days Qty: 90 3RF chlorthalidone 25 mg tablet 25 mg PO DAILY 90 Days Qty: 90 3RF hydrocortisone acetate [Anusol-HC] 25 mg suppository 25 mg [place] BEDTIME Qty: 12 0RF pantoprazole 40 mg tablet,delayed release (DR/EC) 40 mg PO DAILY Qty: 90 1RF Stand Alone Forms: Work/School Release Interventions: ED Discharge Assessment Last Done: 02/14/25 23:10 Discharge Date/Time: 02/14/25 23:11 Print Language: Gambian
--- OUTSIDE RECORDS SUMMARY | 2025-02-14 21:47 | XMS_ITS | Clinical Summary ---
Author Organization [facility] Address [address] [place] [address] Phone Care Team Providers Care Medical Officer Name Role Phone Doroteo Cash MD Primary [...] disease without esophagi tis 04/28/2023 Morbid obesity 04/28/2023 ANKUSH (obstructive sleep apnea) 04/28/2023 Primary hypertension [...] Primary hypertension 04/28/2023 DX:Primary hypertension Morbid obesity (CMS/HCC V24, CMS/HCC V28) 04/28/2023 DX:Morbid obesity (HCC) Gastroesophageal reflux dise ase without esophagitis 04/28/2023 [...] Orientation Straight 05/28/2024 10 :24 AM EDT Last Filed Vital Signs Vital Sign Reading [...] of 3 - 19+ 3-dose series) 1997 Cholesterol Screening (Lipid Panel) 09/12/2023 HIV [...] Colorectal Cancer Screening: Colonoscopy 07/20/2034 07/20/2024, 05/19/2023 RSV Immunization Adult Patients (1 - 1-dose 75+ series) 2053 HIB Vaccines Aged Out No longer eligi [...] on patient's age to complete this topic Pneumococcal Vaccine: Pediatrics (0 to 5 Years) and At-Risk Patients (6 to 49 Years) Aged Out No longer eligible b ased [...] Most Recently Relevant to Health Maintenance Insurance [facility] [employer] Care Teams Medical Officer Relationship Specialty Start Date End Date Doroteo Cash MD [address] [place] [address] PCP - General 03/03/23
--- OUTSIDE RECORDS SUMMARY | 2025-02-14 21:47 | XMS_ITS | Clinical Summary ---
Author Organization [facility] Address [address] [address] Phone Care Team Providers Care Pricer Name Role Phone Pcp, Unknown Primary Care [...] Active MAGNESIUM ORAL Take by mouth. Active Social History Tobacco Use Types Packs/Day Years [...] 10/28/2023 INFLUENZA VACCINE (#1) 2024 COVID-19 VACCINE ( - 2024-2 6 season) 2024 HEPATITIS A VACCINES Aged [...] topic Medical Devices Not on file Insurance [employer] Care Teams Pricer Relationship Specialty Start Date End Date Pcp, Unknown PCP - General 07/16/24 Additional Source Comments The information contained in this document represents components of the legal health record. It is not the complete legal health record.[facility]
[2025-02-14 23:10] VITALS: BP 154/86; PULSE 67; RESP 20; TEMP 36.2; O2SAT 96
== END 2025-02-14 23:11 | disposition home or self-care (01) ==
PROVIDERS: Emergency Provider Emergency Medicine
DX: S83.91XA Sprain of unspecified site of right knee, initial encounter (principal); X58.XXXA Exposure to other specified factors, initial encounter; Y93.9 Activity, unspecified; Y92.9 Unspecified place or not applicable; Y99.8 Other external cause status
CPT/HCPCS: 73562; 99282; 99283

== ENCOUNTER → 2025-02-14 19:12 | Outpatient (BNV) | payer OTHER, SELFPAY | PROVIDERS: Visit Provider Student in an Organized Health Care Education/Training Program | DX: M25.561 Pain in right knee (principal) | CPT/HCPCS: 73562 ==